=== PATIENT | male | born 1930 | race Caucasian/White ===

== ENCOUNTER 2016-09-26 13:17 | Outpatient (CLI) | payer MEDICARE, OTHER | END 2016-09-26 13:18 | disposition home or self-care (01) | DX: G47.33 Obstructive sleep apnea (adult) (pediatric) (principal) | CPT/HCPCS: 99214; G0463 ==

== ENCOUNTER 2017-08-04 08:15 | Outpatient (CLI) | payer MEDICARE, OTHER ==
[2017-08-04 09:04] LABS: ALBUMIN/GLOBULIN RATIO 1.2 (1.0-2.2); BILIRUBIN,TOTAL 0.8 mg/dL (0.2-1.0); BUN - BLOOD UREA NITROGEN 14 mg/dL (6-20); CALCIUM 9.4 mg/dL (8.5-10.3); CARBON DIOXIDE - CO2 29 mmol/L (21-32); CHLORIDE 101 mmol/L (101-111); CHOL/HDL RATIO 5.8 (<5.0); CHOLESTEROL 220 mg/dL; GFR - MDRD 71 (>89); GLUCOSE 96 mg/dL (70-100); HDL CHOLESTEROL 38 mg/dL; LDL/HDL RATIO 3.7 (<3.6); POTASSIUM 4.1 mmol/L (3.5-5.0); SODIUM 139 mmol/L (135-145); TOTAL PROTEIN 6.9 g/dL (6.7-8.2); TRIGLYCERIDES 200 mg/dL; VLDL CHOLESTEROL 40 mg/dL
== END 2017-08-04 08:16 | disposition home or self-care (01) ==
LOC: LAB 08:15
PROVIDERS: ATTEND Internal Medicine Cardiovascular Disease
DX: I25.118 Atherosclerotic heart disease of native coronary artery with other forms of angina pectoris (principal)
CPT/HCPCS: 36415; 80053; 80061

== ENCOUNTER 2017-10-18 11:38 | Outpatient (CLI) | payer MEDICARE, OTHER | END 2017-10-18 11:39 | disposition critical access hospital (66) | LOC: EMS 11:38 | PROVIDERS: ATTEND Surgery | DX: R07.9 Chest pain, unspecified (principal) | CPT/HCPCS: A0425; A0427 ==

== ENCOUNTER 2017-10-18 11:50 | Emergency (ER) | payer MEDICARE, OTHER ==
[2017-10-18 12:27] LABS: BASOPHILS % (AUTO) 0.4 %; EOSINOPHILS # (AUTO) 0.1 10^3/uL (0.0-0.7); EOSINOPHILS % (AUTO) 1.4 %; HGB - HEMOGLOBIN 12.6 g/dL (14.0-18.0); LYMPHOCYTES % (AUTO) 33.1 %; MEAN CORPUSCULAR HEMOGLOBIN 32.3 pg (27.0-31.0); MEAN CORPUSCULAR HGB CONC 34.9 g/dL (32.0-36.0); MEAN CORPUSCULAR VOLUME 92.5 fL (80.0-94.0); MEAN PLATELET VOLUME 8.2 fL (7.4-11.4); MONOCYTES # (AUTO) 0.7 10^3/uL (0.0-1.0); MONOCYTES % (AUTO) 11.2 %; NEUTROPHILS # (AUTO) 3.3 10^3/uL (1.5-6.6); NEUTROPHILS % (AUTO) 53.9 %; PLT - PLATELET COUNT 149 10^3/uL (130-450); RED BLOOD COUNT 3.89 10^6/uL (4.70-6.10); RED CELL DISTRIBUTION WIDTH 13.3 % (12.0-15.0); WHITE BLOOD COUNT 6.1 x10^3/uL (4.8-10.8)
[2017-10-18 12:36] LABS: ALBUMIN 3.5 g/dL (3.2-5.5); ALBUMIN/GLOBULIN RATIO 1.2 (1.0-2.2); BILIRUBIN,TOTAL 0.7 mg/dL (0.2-1.0); CALCIUM 8.8 mg/dL (8.5-10.3); TOTAL PROTEIN 6.5 g/dL (6.7-8.2)
--- NOTE | 2017-10-18 12:38 | XRAY Report ---
EXAM: CHEST RADIOGRAPHY EXAM DATE: 10/18/2017 12:23 PM. CLINICAL HISTORY: Chest pain. COMPARISON: 05/02/2015. TECHNIQUE: 1 view. FINDINGS: Lungs/Pleura: Faint reticular area of increased parenchymal density right upper lobe laterally just a mick the minor fissure. Left basilar infiltrate or atelectasis. Diskoid atelectasis right lung base N o pleural effusion. No pneumothorax. Mediastinum: Post sternotomy. Heart size normal. Ectatic aorta Other: None. IMPRESSION: 1. Possible early right upper lobe infiltrate. 2. Left basilar infiltrate or atelectasis. 3. Right basilar atelectasis [facility] Referring Provider Line: [phone] SITE ID: [id number]
--- NOTE | 2017-10-18 12:38 | XRAY Preliminary Report ---
Exam: XR CHEST 1 VIEW X-RAY IMPRESSION: 1. Possible early right upper lobe infiltrate. 2. Left basilar infiltrate or atelectasis. 3. Right basilar atelectasis [facility] SITE ID: [id number]
--- NOTE | 2017-10-18 12:51 | ED Physician Documentation ---
PD HPI CHEST PAIN - Stated complaint Stated Complaint: CP - Chief complaint Chief Complaint: Cardiac - History obtained from History obtained from: Patient - History of Present Illness Timing - onset: How many hours ago (7) Timing - onset during: Sleep Timing - duration: Hours (7) Timing - details: Other (awoke with chest pain today at 0500) Pain level max: 5 Pain level now: 0 Quality: Pressure, Tightness, Dull, Indigestion Location: Substernal Radiation: Other (felt 30 seconds of numbness to the L arm) Improved by: Nothing Worsened by: Eating (worse when eating breakfast this am) Associated symptoms: No: Shortness of air, Diaphoresis, Nausea, Vomiting, Feeling faint / dizzy, General Weakness, Palpitations Similar symptoms before: Diagnosis (has "angina") Recently seen: Not recently seen, Other ([facility]has appt in 1 week)) - Additional information Additional information: Patient had a CABG in 1992 and cardiac stents in 2009 and 2015. States has a bypass graft that "didn't take" and causes pain, but his cardiolgist has said it will not cause a MA. Review of Systems Ten Systems: 10 systems reviewed and negative Constitutional: denies: Fever, Chills Ears: denies: Ear pain Nose: denies: Rhinorrhea / runny nose, Congestion Throat: denies: Sore throat Cardiac: denies: Palpitations Respiratory: denies: Cough, Wheezing GI: denies: Abdominal Pain, Nausea, Vomiting, Diarrhea : denies: Dysuria Skin: denies: Rash Musculoskeletal: denies: Neck pain, Back pain Neurologic: denies: Headache PD PAST MEDICAL HISTORY - Past Medical History Past Medical History: Yes Cardiovascular: Hypertension, High cholesterol, Coronary artery disease, Atrial fibrillation, Arrhythmia Respiratory: Sleep apnea, CPAP use Neuro: None Endocrine/Autoimmune: None GI: GERD, Hiatal hernia, Diverticulitis : Kidney stones HEENT: None Psych: None Musculoskeletal: Osteoarthritis, Fatigue, Other Derm: Other - Past Surgical History Past Surgical History: Yes General: Colonoscopy, EGD Ortho: Other Cardiovascular: CABG, Coronary stent HEENT: Cataracts, Tonsil/Adenoidectomy - Present Medications Home Medications: Ambulatory Orders Medication Instructions Recorded Confirmed Aspirin Chewable [[facility] Esteb[place] 81 mg PO DAILY 12/27/12 06/17/15 Aspirin] Atenolol 12.5 mg PO DAILY 12/27/12 06/17/15 Betaxolol HCl 2 drops OP DAILY 12/27/12 06/17/15 Calcium Carbonate [Tums] 2 tab PO DAILY PRN 12/27/12 06/17/15 Cholecalciferol (Vitamin D3) 5,000 unit PO DAILY 12/27/12 06/17/15 [Vitamin D] Folic Acid 0.4 mg PO DAILY 12/27/12 06/17/15 Latanoprost 0.005% Ophth Drops 1 drops OPTH QPM 12/27/12 06/17/15 [Xalatan] Magnesium 500 mg PO DAILY 12/27/12 06/17/15 Nitroglycerin [Nitrostat] 0.4 mg SL ONCE 12/27/12 06/17/15 [place]-3 Fatty Acids/Fish Oil [Fish 2 each PO DAILY 12/27/12 06/17/15 Oil 1,000 mg Capsule] Docusate Sodium Oral Soln [Colace] 100 mg PO BID PRN 06/11/15 06/17/15 Cyanocobalamin (Vitamin B-12) 1,000 mcg IJ ONCE 06/16/15 06/17/15 [Cyanocobalamin Injection] - Allergies Allergies/Adverse Reactions: Allergies Allergy/AdvReac Type Severity Reaction Status Date / Time Sulfa (Sulfonamide Allergy Intermediate Hives Verified 05/12/15 14:34 Antibiotics) lansoprazole [From Prevacid] Allergy Mild Diarrhea Verified 05/12/15 14:34 Lkecufv-Pya-Qpo Reductase Allergy Mild Indigestion/Chest Verified 05/12/15 14:34 Inhibitor pain tetracycline [Tetracycline] Allergy Mild Unknown Verified 05/12/15 14:34 acetaminophen [From Tylenol] AdvReac Mild Irreg. Verified 05/12/15 14:34 heart rate diphenhydramine HCl * AdvReac Mild A-fib Verified 05/12/15 14:34 [From Benadryl] tree nuts Allergy Mild Unknown Uncoded 05/12/15 14:34 eggs AdvReac Mild Indigestion Uncoded 05/12/15 14:34 oats AdvReac Mild Indigestion Uncoded 05/12/15 14:34 - Social History Does the pt smoke?: No Smoking Status: Never smoker Does the pt drink ETOH?: Yes Does the pt have substance abuse?: No - Immunizations Immunizations are current?: Yes - POLST Patient has POLST: No PD ED PE NORMAL - Vitals Vital signs reviewed: Yes - General General: Alert and oriented X 3, No acute distress - HEENT HEENT: Moist mucous membranes - Neck Neck: Supple, no meningeal sign - Cardiac Cardiac: RRR, Strong equal pulses - Respiratory Respiratory: No respiratory distress, Clear bilaterally - Abdomen Abdomen: Soft, Non tender, Non distended - Derm Derm: Warm and dry, No rash - Extremities Extremities: No edema, No calf tenderness / cord - Neuro Neuro: Alert and oriented X 3 - Psych Psych: Normal mood, Normal affect Results - Vitals Vitals: Vital Signs - 24 hr 10/18/17 10/18/17 12:00 13:26 Temperature 36.6 C Heart Rate 56 L 60 Respiratory 17 16 Rate Blood Pressure 141/68 H 116/64 O2 Saturation 98 99 Oxygen O2 Source Room air - EKG (time done) 1155 Rate: Rate (enter#) (59) Rhythm: NSR [place]: Normal Intervals: Normal [place] QRS: Normal Ischemia: Normal ST segments Computer interpretation: Agree with computer - Labs Labs: Laboratory Tests 10/18/17 10/18/17 10/18/17 12:05 12:05 12:05 WBC 6.1 RBC 3.89 L Hgb 12.6 L Hct 36.0 L MCV 92.5 MCH 32.3 H MCHC 34.9 RDW 13.3 Plt Count 149 MPV 8.2 Neut # 3.3 Lymph # 2.0 [place] # 0.7 Eos # 0.1 Baso # 0.0 Absolute Nucleated RBC 0.00 Nucleated RBC % 0.0 Sodium 135 Potassium 3.8 Chloride 99 L Carbon Dioxide 26 Anion Gap 10.0 BUN 14 Creatinine 1.0 Estimated GFR (MDRD) 71 L Glucose 106 H Calcium 8.8 Total Bilirubin 0.7 AST 26 ALT 19 Alkaline Phosphatase 69 Troponin I < 0.04 Total Protein 6.5 L Albumin 3.5 Globulin 3.0 Albumin/Globulin Ratio 1.2 Lipase 30 10/18/17 13:52 WBC RBC Hgb Hct MCV MCH MCHC RDW Plt Count MPV Neut # Lymph # [place] # Eos # Baso # Absolute Nucleated RBC Nucleated RBC % Sodium Potassium Chloride Carbon Dioxide Anion Gap BUN Creatinine Estimated GFR (MDRD) Glucose Calcium Total Bilirubin AST ALT Alkaline Phosphatase Troponin I < 0.04 Total Protein Albumin Globulin Albumin/Globulin Ratio Lipase - Rads (name of study) cxr Radiology: Prelim report reviewed, EMP read contemporaneously, See rad report ( Possible early right upper lobe infiltrate. Left basilar infiltrate or atelectasis. right basilar atelectasis) PD MEDICAL DECISION MAKING - ED course Complexity details: reviewed results, re-evaluated patient, considered differential (No ST elevation MA, no aortic dissection, no PE, no tension pneumothorax, no aortic aneurysm), d/w patient, d/w qa consultant (1300 - Dr. Olvera and recommends rpt trop at 1400 and follow up with Terence if neg) ED course: Patient is an 86-year-old gentleman who presents to the emergency department with atypical chest pain. Symptoms resolved in the emergency department. Negative troponin 2 after greater than 8 hours of constant pain. No acute findings on EKG. No evidence of acute coronary syndrome. Discussed the case with cardiology and will follow-up as an outpatient. Patient counseled regarding signs and symptoms for which I believe and urgent re-evaluation would be necessary. Patient with good understanding of and agreement to plan and is comfortable going home at this time This document was made in part using voice recognition software. While efforts are made to proofread this document, sound alike and grammatical errors may occur. Departure - Departure Disposition: 01 Home, Self Care Clinical Impression: Chest pain Condition: Good Instructions: ED Chest Pain Atypical Unkn Cause Follow-Up: Nick Nova MD [Primary Care Provider] - Cornelio Pratt MD [Physician No Access] - Comments: Continue your medications at home. Return if you worsen. Follow up with Dr. Pratt as scheduled. Discharge Date/Time: 10/18/17 14:48
[2017-10-18 13:26] VITALS: BP 116/64
== END 2017-10-18 14:48 | disposition home or self-care (01) ==
LOC: EDUNIT# → SUPCPDRO 11:50 → ED 11:50
DX: R07.89 Other chest pain (principal); I25.10 Atherosclerotic heart disease of native coronary artery without angina pectoris; Z95.1 Presence of aortocoronary bypass graft; I48.91 Unspecified atrial fibrillation; I10 Essential (primary) hypertension; E78.00 Pure hypercholesterolemia, unspecified; G47.30 Sleep apnea, unspecified; K21.9 Gastro-esophageal reflux disease without esophagitis; M19.90 Unspecified osteoarthritis, unspecified site; Z79.82 Long term (current) use of aspirin
CPT/HCPCS: 36415; 71045; 80053; 83690; 84484; 85025; 93005; 99283; 99284

== ENCOUNTER 2017-10-30 13:58 | Outpatient (CLI) | payer MEDICARE, OTHER | END 2017-10-30 13:59 | disposition home or self-care (01) | LOC: SC 13:58 | PROVIDERS: ATTEND Nurse Practitioner Family | DX: G47.33 Obstructive sleep apnea (adult) (pediatric) (principal) | CPT/HCPCS: 99214; G0463; 99212 ==

== ENCOUNTER 2017-11-09 18:05 | Outpatient (CLI) | payer MEDICARE, OTHER | END 2017-11-09 18:06 | disposition critical access hospital (66) | LOC: EMS 18:05 | PROVIDERS: ATTEND Surgery | DX: R07.9 Chest pain, unspecified (principal) | CPT/HCPCS: A0425; A0427 ==

== ENCOUNTER 2017-11-09 18:17 | Inpatient (IN) | payer MEDICARE, OTHER ==
--- NOTE | 2017-11-09 18:28 | ED Physician Documentation ---
PD HPI CHEST PAIN - Stated complaint Stated Complaint: CP - Chief complaint Chief Complaint: Cardiac - History obtained from History obtained from: Patient, EMS - History of Present Illness Timing - onset: Other (86-year-old gentleman with history of coronary disease, had a remote 2 vessel bypass and has been stented 3 times since then. He has been having increasing angina over the last month or so and is actually scheduled for coronary angiography at [facility] in 5 days. He last had angina 3 days ago, it has usually been resolving with a single nitroglycerin. He developed rest angina today which was mild and pretty much gone at this point but atypically he took 3 nitroglycerin before it resolved. When I ask him if he is having pain now he says yes, I think so, but he obviously has to think about it.) Review of Systems Ten Systems: 10 systems reviewed and negative Constitutional: denies: Fever, Chills Cardiac: reports: Chest pain / pressure. denies: Palpitations, Pedal edema, Calf pain Respiratory: denies: Dyspnea GI: reports: Reviewed and negative PD PAST MEDICAL HISTORY - Past Medical History Cardiovascular: Hypertension, High cholesterol, Coronary artery disease, Atrial fibrillation, Arrhythmia Respiratory: Sleep apnea, CPAP use Neuro: None Endocrine/Autoimmune: None GI: GERD, Hiatal hernia, Diverticulitis : Kidney stones HEENT: None Psych: None Musculoskeletal: Osteoarthritis, Fatigue, Other Derm: Other - Past Surgical History Past Surgical History: Yes General: Colonoscopy, EGD Ortho: Other Cardiovascular: CABG, Coronary stent HEENT: Cataracts, Tonsil/Adenoidectomy - Present Medications Home Medications: Ambulatory Orders Medication Instructions Recorded Confirmed Aspirin Chewable [St Esteban 81 mg PO DAILY 12/27/12 06/17/15 Aspirin] Betaxolol HCl 2 drops OP DAILY 12/27/12 06/17/15 Calcium Carbonate [Tums] 2 tab PO DAILY PRN 12/27/12 06/17/15 Cholecalciferol (Vitamin D3) 5,000 unit PO DAILY 12/27/12 06/17/15 [Vitamin D] Latanoprost 0.005% Ophth Drops 1 drops OPTH QPM 12/27/12 06/17/15 [Xalatan] Magnesium 500 mg PO DAILY 12/27/12 06/17/15 Nitroglycerin [Nitrostat] 0.4 mg SL ONCE 12/27/12 06/17/15 [place]-3 Fatty Acids/Fish Oil [Fish 2 each PO DAILY 12/27/12 06/17/15 Oil 1,000 mg Capsule] Cyanocobalamin (Vitamin B-12) 1,000 mcg IJ ONCE 06/16/15 06/17/15 [Cyanocobalamin Injection] Metoprolol Succinate 50 mg PO DAILY 11/09/17 11/09/17 amLODIPine [Norvasc] 5 mg PO DAILY 11/09/17 11/09/17 amLODIPine [Norvasc] 5 mg PO DAILY #30 tablet 11/09/17 - Allergies Allergies/Adverse Reactions: Allergies Allergy/AdvReac Type Severity Reaction Status Date / Time Sulfa (Sulfonamide Allergy Intermediate Hives Verified 05/12/15 14:34 Antibiotics) lansoprazole [From Prevacid] Allergy Mild Diarrhea Verified 05/12/15 14:34 Smkjjvs-Bmu-Ipd Reductase Allergy Mild Indigestion/Chest Verified 05/12/15 14:34 Inhibitor pain tetracycline [Tetracycline] Allergy Mild Unknown Verified 05/12/15 14:34 acetaminophen [From Tylenol] AdvReac Mild Irreg. Verified 05/12/15 14:34 heart rate diphenhydramine HCl * AdvReac Mild A-fib Verified 05/12/15 14:34 [From Benadryl] tree nuts Allergy Mild Unknown Uncoded 05/12/15 14:34 eggs AdvReac Mild Indigestion Uncoded 05/12/15 14:34 oats AdvReac Mild Indigestion Uncoded 05/12/15 14:34 - Social History Does the pt smoke?: No Smoking Status: Never smoker Does the pt drink ETOH?: Yes Does the pt have substance abuse?: No - Family History Family history: reports: Non contributory - Immunizations Immunizations are current?: Yes - POLST Patient has POLST: No PD ED PE NORMAL - Vitals Vital signs reviewed: Yes - General General: Alert and oriented X 3, No acute distress - HEENT HEENT: PERRL, EOMI - Neck Neck: Supple, no meningeal sign, No bony TTP - Cardiac Cardiac: RRR, No murmur - Respiratory Respiratory: No respiratory distress, Clear bilaterally - Abdomen Abdomen: Non tender - Extremities Extremities: No deformity, No tenderness to palpate, No edema, No calf tenderness / cord - Neuro Neuro: Alert and oriented X 3, Normal speech Results - Vitals Vitals: Vital Signs - 24 hr 11/09/17 11/09/17 11/09/17 18:20 19:00 19:36 Temperature 36.5 C Heart Rate 64 59 L 57 L Respiratory 18 15 15 Rate Blood Pressure 161/75 H 155/69 H 135/81 H O2 Saturation 98 97 96 Oxygen O2 Source Room air - EKG (time done) 1821 Rate: Rate (enter#) (61) Rhythm: NSR [place]: Normal Intervals: Normal [place] QRS: Normal Ischemia: Normal ST segments Computer interpretation: Agree with computer 1943 Rate: Rate (enter#) (60) Rhythm: NSR [place]: Normal Intervals: Normal [place] QRS: Normal Ischemia: Normal ST segments Compare to prior EKG: Unchanged from prior EKG (from #1 daniel) Computer interpretation: Agree with computer - Labs Labs: Laboratory Tests 11/09/17 11/09/17 11/09/17 18:34 18:34 18:34 WBC 6.7 RBC 4.16 L Hgb 13.2 L Hct 38.9 L MCV 93.5 MCH 31.6 H MCHC 33.8 RDW 12.9 Plt Count 169 MPV 7.7 Neut # 3.4 Lymph # 2.3 [place] # 0.8 Eos # 0.1 Baso # 0.0 Absolute Nucleated RBC 0.00 Nucleated RBC % 0.0 Sodium 134 L Potassium 3.9 Chloride 99 L Carbon Dioxide 28 Anion Gap 7.0 BUN 15 Creatinine 1.0 Estimated GFR (MDRD) 71 L Glucose 120 H Calcium 9.0 Total Bilirubin 0.6 AST 23 ALT 17 Alkaline Phosphatase 81 Troponin I < 0.04 Total Protein 6.7 Albumin 3.7 Globulin 3.0 Albumin/Globulin Ratio 1.2 Lipase 31 PD MEDICAL DECISION MAKING - ED course ED course: 86-year-old gentleman with known coronary disease and ongoing intermittent angina. I spoke with his bounty hunter after objective findings without evidence of ACS here. She recommended adding amlodipine 5 mg once a day and following up next week as scheduled for coronary angiography. Prior to discharge his pain increased again, subsequent EKG showed no changes but I called the bounty hunter, Dr. Spann again and she thought that given his worsening pain he should be transferred for a likely more urgent but not emergent coronary angiography, we agreed on starting heparin and nitro drips prior to transport. Cobras were completed. Unfortunately [facility] was full and they recommended boarding him here pending bed availability. Given the lack of objective markers of ongoing ischemia this is not unreasonable. Departure - Departure Disposition: [facility] DC/Xfer Clinical Impression: Angina at rest Condition: Stable Record reviewed to determine appropriate education?: Yes Instructions: Angina Dc Prescriptions: amLODIPine [Norvasc] 5 mg PO DAILY #30 tablet Comments: The physician precision honing machine operator for Dr. Pratt recommended the addition of this new blood pressure medication. Return if worse, otherwise follow-up as scheduled on Monday for angiography.
[2017-11-09 18:39] LABS: BASOPHILS % (AUTO) 0.7 %; EOSINOPHILS # (AUTO) 0.1 10^3/uL (0.0-0.7); EOSINOPHILS % (AUTO) 2.2 %; HGB - HEMOGLOBIN 13.2 g/dL (14.0-18.0); LYMPHOCYTES # (AUTO) 2.3 10^3/uL (1.5-3.5); LYMPHOCYTES % (AUTO) 34.6 %; MEAN CORPUSCULAR HEMOGLOBIN 31.6 pg (27.0-31.0); MEAN CORPUSCULAR HGB CONC 33.8 g/dL (32.0-36.0); MEAN CORPUSCULAR VOLUME 93.5 fL (80.0-94.0); MEAN PLATELET VOLUME 7.7 fL (7.4-11.4); MONOCYTES # (AUTO) 0.8 10^3/uL (0.0-1.0); MONOCYTES % (AUTO) 11.8 %; NEUTROPHILS # (AUTO) 3.4 10^3/uL (1.5-6.6); NEUTROPHILS % (AUTO) 50.7 %; PLT - PLATELET COUNT 169 10^3/uL (130-450); RED BLOOD COUNT 4.16 10^6/uL (4.70-6.10); RED CELL DISTRIBUTION WIDTH 12.9 % (12.0-15.0); WHITE BLOOD COUNT 6.7 x10^3/uL (4.8-10.8)
[2017-11-09 18:53] LABS: ALBUMIN 3.7 g/dL (3.2-5.5); ALBUMIN/GLOBULIN RATIO 1.2 (1.0-2.2); BILIRUBIN,TOTAL 0.6 mg/dL (0.2-1.0); TOTAL PROTEIN 6.7 g/dL (6.7-8.2)
[2017-11-09] MEDS ORDERED: amLODIPine 5 MG TABLET PO STA (19:19)
[2017-11-09] MEDS ORDERED: HEPARIN 25000UNITS/500ML (D5W) 25,000 UNIT/500 ML BAG IV STA (20:04)
[2017-11-09] MEDS ORDERED: NITROGLYCERIN 50 MG/250 ML 50 MG/250 ML BOTTLE IV STA (20:04)
[2017-11-09] MEDS ORDERED: HEPARIN 5,000 UNIT/ML VIAL IVP ONE (20:04)
[2017-11-09] MEDS ORDERED: TEMAZEPAM 15 MG CAPSULE PO PRN (21:22)
[2017-11-09] MEDS ORDERED: ACETAMINOPHEN 325 MG TABLET PO PRN (21:22)
[2017-11-09] MEDS ORDERED: SODIUM CHLORIDE FLUSH 0.9% 10 ML SYRINGE IVP PRN (21:22)
[2017-11-09] MEDS ORDERED: ONDANSETRON 4 MG/2 ML VIAL IVP PRN (21:22)
[2017-11-09] MEDS ORDERED: HYDROmorphone 1 MG/ML SYRINGE IVP PRN (21:34)
[2017-11-09] MEDS ORDERED: HEPARIN 25000UNITS/500ML (D5W) 25,000 UNIT/500 ML BAG IV SCH (22:00)
[2017-11-09] MEDS ORDERED: NITROGLYCERIN 50 MG/250 ML 50 MG/250 ML BOTTLE IV SCH (22:00)
[2017-11-09] MEDS: FAMOTIDINE 20 MG/50 ML 50 ML IV SCH (22:40)
[2017-11-09 23:43] LABS: BILIRUBIN,URINE NEGATIVE (NEGATIVE); GLUCOSE, URINE (UA) NEGATIVE (NEGATIVE); KETONES,URINE (UA) NEGATIVE (NEGATIVE); LEUKOCYTE ESTERASE, URINE NEGATIVE (NEGATIVE); NITRITE,URINE NEGATIVE (NEGATIVE); OCCULT BLOOD,URINE NEGATIVE (NEGATIVE); PROTEIN,URINE NEGATIVE (NEGATIVE); UROBILINOGEN,URINE 0.2 (NORMAL) E.U./dL (NORMAL)
[2017-11-09 23:44] LABS: CLARITY,URINE CLEAR (CLEAR)
[2017-11-10] MEDS: SODIUM CHLORIDE FLUSH 0.9% 10 ML SYRINGE IVP SCH ×2 (01:49→15:24)
--- NOTE | 2017-11-10 03:23 | HISTORY & PHYSICAL EXAMINATION ---
DATE OF SERVICE: 11/09/2017 Physician: Wanda Shultz MD HISTORY OF PRESENT ILLNESS: This is an 86-year-old, white male with a history of hypertension, hyperlipidemia, coronary artery disease with bypass surgery of 2 vessels in 1995 and subsequent stenting of coronary vessels done in 2005, 2009 and 2015. The patient has had angina over the past 1 month and was already scheduled for an elective angiogram to be done in 5 days. Today, he developed resting angina, and usually any angina for him resolves with 1 sublingual nitroglycerin; however, he required 3 sublingual nitroglycerin for relief. He presented to the emergency room with CP, became pain-free, but then developed chest pain again while in the emergency room. He had 2 EKGs done, one on admission and one with recurrence of the pain. Both showed no ischemic changes. The ER doctor was able to contact the patient's battery hand who initially recommended adding Norvasc and sending the patient home, but after chest pain occurred in the ER, that battery hand was contacted again and advised that the patient be transferred for coronary angiogram, and to be started on IV nitroglycerin and IV heparin. Cobra forms were signed. However, there were no beds available at [facility], and therefore the patient is being hospitalized for stabilization of his resting angina. The patient is currently pain-free. He has been started on heparin bolus and drip, and IV nitroglycerin at 5 mcg. He denies any dyspnea with these symptoms. He has been compliant with his medications. ALLERGIES 1. SULFA ANTIBIOTICS. 2. LANSOPRAZOLE 3. ALL STATIN MEDICATIONS. 4. TETRACYCLINE. 5. TYLENOL. 6. BENADRYL. 7. TREE NUTS. 8. EGGS. 9. OATS. SOCIAL HISTORY: The patient is a nonsmoker, quit in 1963. He drinks alcohol or uses any illicit drugs. REVIEW OF SYSTEMS: A comprehensive review of systems was performed and the pertinent positives are in the HPI. PAST MEDICAL HISTORY: Hypertension, hyperlipidemia, coronary artery disease with bypasses and stents, obstructive sleep apnea on CPAP. Also, history of atrial fibrillation in the past, GERD, hiatal hernia, diverticulitis and kidney stones. PHYSICAL EXAMINATION GENERAL: Elderly, white male, in no distress. VITAL SIGNS: Blood pressure 171/85, pulse of 63 in sinus rhythm, afebrile, room air saturation 98%. HEENT: Unremarkable. NECK: Shows no JVD in a vertical position. No carotid bruits. LUNGS: Clear. HEART: Sounds normal. ABDOMEN: Soft, positive bowel sounds, nontender. EXTREMITIES: No clubbing, cyanosis or edema. NEUROLOGIC: Intact. LABORATORIES: Sodium 134, potassium 3.9, BUN and creatinine normal. Liver tests normal, bilirubin normal. First troponin less than 0.04. Lipase normal. White blood count and platelet count normal, hemoglobin 13.2. No INR was done. Urine is negative. There is no chest x-ray done. The EKG shows sinus rhythm at a rate of 61 and is within normal limits, and EKG number #2 is similar. IMPRESSION/DIAGNOSES 1. Unstable angina. 2. History of coronary artery disease with bypasses and stents. 3. Hypertension, poorly controlled. 4. Statin intolerance. PLAN: Admit the patient to the ICU and continue with the IV heparin drip as per protocol following the PTT. Continue with the IV nitroglycerin, which can be titrated to treat his angina. Continue with his beta brandon, aspirin and fish oil tablets and his other noncardiac medications. Follow his troponins. Check his lipid panel and a CXR. If chest pain should recur again, obtain a stat EKG to look for ischemic changes. The plan is for transfer for elective coronary angiography as soon as a bed opens at [facility]. CODE STATUS: FULL CODE. DEEP VENOUS THROMBOSIS PROPHYLAXIS: Therapeutic heparin dosing. ATTESTATION: The patient is expected to be discharged or transferred to another facility within 96 hours: Yes. TD: 11/10/2017 03:21 MTDEstephania
[2017-11-10 05:03] LABS: BASOPHILS % (AUTO) 0.6 %; EOSINOPHILS # (AUTO) 0.2 10^3/uL (0.0-0.7); EOSINOPHILS % (AUTO) 2.7 %; HGB - HEMOGLOBIN 13.1 g/dL (14.0-18.0); LYMPHOCYTES # (AUTO) 2.4 10^3/uL (1.5-3.5); LYMPHOCYTES % (AUTO) 38.7 %; MEAN CORPUSCULAR HEMOGLOBIN 31.8 pg (27.0-31.0); MEAN CORPUSCULAR HGB CONC 33.8 g/dL (32.0-36.0); MEAN CORPUSCULAR VOLUME 94.1 fL (80.0-94.0); MEAN PLATELET VOLUME 8.2 fL (7.4-11.4); MONOCYTES # (AUTO) 0.8 10^3/uL (0.0-1.0); MONOCYTES % (AUTO) 12.1 %; NEUTROPHILS # (AUTO) 2.9 10^3/uL (1.5-6.6); NEUTROPHILS % (AUTO) 45.9 %; PLT - PLATELET COUNT 155 10^3/uL (130-450); RED BLOOD COUNT 4.12 10^6/uL (4.70-6.10); RED CELL DISTRIBUTION WIDTH 13.3 % (12.0-15.0); WHITE BLOOD COUNT 6.3 x10^3/uL (4.8-10.8)
[2017-11-10 05:09] LABS: CALCIUM 8.7 mg/dL (8.5-10.3); CREATININE 0.8 mg/dL (0.6-1.2)
[2017-11-10 05:12] LABS: CHOL/HDL RATIO 5.8 (<5.0); CHOLESTEROL 207 mg/dL; HDL CHOLESTEROL 36 mg/dL; LDL CHOLESTEROL,CALCULATED 153 mg/dL; LDL/HDL RATIO 4.3 (<3.6); VLDL CHOLESTEROL 18 mg/dL
[2017-11-10] MEDS ORDERED: POTASSIUM CHLORIDE 20 MEQ TABLET PO ONE ×2 (07:00→08:00)
[2017-11-10] MEDS ORDERED: MAGNESIUM OXIDE 400 MG TABLET PO SCH (08:00)
[2017-11-10] MEDS: FAMOTIDINE 20 MG/50 ML 50 ML IV SCH (08:31)
[2017-11-10] MEDS ORDERED: MAGNESIUM 500 MG PO SCH (09:00)
[2017-11-10] MEDS ORDERED: OMEGA-3 ACID ETHYL ESTERS 1 GM CAPSULE PO SCH (09:00)
[2017-11-10] MEDS ORDERED: amLODIPine 5 MG TABLET PO SCH (09:00)
[2017-11-10] MEDS ORDERED: BETAXOLOL HCL EACHEYE SCH (09:00)
[2017-11-10] MEDS ORDERED: ASPIRIN CHEW 81 MG TABLET PO SCH (09:00)
[2017-11-10] MEDS ORDERED: METOPROLOL SUCCINATE 50 MG TABLET PO SCH (09:00)
[2017-11-10] MEDS ORDERED: OMEGA PO SCH (09:00)
[2017-11-10] MEDS ORDERED: FATTY ACIDS PO SCH (09:00)
[2017-11-10] MEDS ORDERED: FISH OIL PO SCH (09:00)
[2017-11-10] MEDS ORDERED: CHOLECALCIFEROL 1,000 UNIT TABLET PO SCH ×2 (09:00→11:58)
--- NOTE | 2017-11-10 09:24 | XRAY Report ---
FRONTAL CHEST: 11/10/2017 COMPARISON: Frontal chest 10/18/2017. INDICATION: Chest pain. TECHNIQUE: One view. FINDINGS: Interval clearance of right mid lung patchy opacity. Bilateral lower lobe patchy opacity is more conspicuous on today's examination, concerning for pneumonia. No pneumothorax or pleural effusion. Mediastinum otherwise unremarkable. Sternotomy is noted. IMPRESSION: INTERVAL CLEARANCE OF RIGHT MID LUNG OPACITY. MORE CONSPICUOUS BILATERAL LOWER LOBE OPACITIES ARE CONCERNING FOR PNEUMONIA. CORRELATE CLINICALLY. TD: 11/10/2017 09:23 MTDD
--- NOTE | 2017-11-10 16:23 | DISCHARGE SUMMARY ---
Discharge Summary Admit Date: 11/09/17 Discharge Date: 11/10/17 Discharging Provider: Jillian Herring Primary Care Provider: Nick Nova Code Status: Attempt Resuscitation Condition at Discharge: Stable Discharge Disposition: 02 Transfer Acute Care Hosp Discharge Facility Name: [facility] - DIAGNOSES Admission Diagnoses: 1. Unstable angina 2. History of coronary artery disease with bypasses and stents 3. Hypertension, poorly controlled 4. Statin intolerance Discharge Diagnoses with Status of Each Condition: 1. Unstable angina-The patient's chest pain has been relieved while on the nitro drip at 5 mcg an hour. He denies any shortness of breath or any other symptomatology at this time. 2. History of coronary artery disease with bypasses and stents- The patient will be transferred to [facility] where he will undergo a coronary artery angiogram. 3. Hypertension, poorly controlled- Well-controlled on nitroglycerin drip, however will obviously need to be adjusted once the patient is off of the drip. 4. 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 He is not a candidate for statins. - HPI History of Present Illness: Please see the history and physical from Dr. Guerra. - HOSPITAL COURSE Hospital Course: The patient was admitted to the intensive care unit and placed on nitroglycerin drip. His symptoms resolved and he has been pain-free since this morning. He will now be transferred to [facility] for a coronary artery angiogram. - ALLERGIES Allergies/Adverse Reactions: Allergies Allergy/AdvReac Type Severity Reaction Status Date / Time Sulfa (Sulfonamide Allergy Intermediate Hives Verified 05/12/15 14:34 Antibiotics) lansoprazole [From Prevacid] Allergy Mild Diarrhea Verified 05/12/15 14:34 Sqijvpk-Nvn-Ibs Reductase Allergy Mild Indigestion/Chest Verified 05/12/15 14:34 Inhibitor pain tetracycline [Tetracycline] Allergy Mild Unknown Verified 05/12/15 14:34 acetaminophen [From Tylenol] AdvReac Mild Irreg. Verified 05/12/15 14:34 heart rate diphenhydramine HCl * AdvReac Mild A-fib Verified 05/12/15 14:34 [From Benadryl] gluten AdvReac Cramps Verified 11/10/17 10:37 tree nuts Allergy Mild Unknown Uncoded 05/12/15 14:34 eggs AdvReac Mild Indigestion Uncoded 05/12/15 14:34 oats AdvReac Mild Indigestion Uncoded 05/12/15 14:34 - MEDICATIONS Home Medications: Ambulatory Orders Medication Instructions Recorded Confirmed Latanoprost 0.005% Ophth Drops 1 drops RIGHTEYE QPM 12/27/12 11/10/17 [Xalatan] Magnesium 500 mg PO DAILY 12/27/12 11/10/17 Nitroglycerin [Nitrostat] 0.4 mg SL Q5M PRN 12/27/12 11/10/17 [place]-3 Fatty Acids/Fish Oil [Fish 500 mg PO BID 12/27/12 11/10/17 Oil 1,000 mg Capsule] Cyanocobalamin (Vitamin B-12) 1,000 mcg PO DAILY 06/16/15 11/10/17 [Cyanocobalamin Injection] Metoprolol Succinate 50 mg PO DAILY 11/09/17 11/10/17 Aspirin [Aspirin EC] 81 mg PO DAILY 11/10/17 11/10/17 Betaxolol HCl [Betaxolol HCl 0.5%] 1 drops EACHEYE BID 11/10/17 11/10/17 Calcium Carbonate [Tums (Calcium 500 mg PO PRN PRN 11/10/17 11/10/17 Carbonate 500mg)] Cholecalciferol (Vitamin D3) 2,000 units PO DAILY 11/10/17 11/10/17 [Vitamin D3] Famotidine 10 mg PO BID 11/10/17 11/10/17 Isosorbide Mononitrate [Isosorbide 60 mg PO DAILY 11/10/17 11/10/17 Mononitrate ER] Rosuvastatin Calcium [Rosuvastatin 5 mg PO DAILY 11/10/17 11/10/17 Calcium] Vit A/Vit C/Vit E/Zinc/Copper 2 cap PO QDDINNER 11/10/17 11/10/17 [Preservision Areds Softgel] amLODIPine [Norvasc] 5 mg PO DAILY 11/10/17 11/10/17 - PHYSICAL EXAM AT DISCHARGE General Appearance: positive: No acute distress, Alert Eyes Bilateral: positive: Normal inspection, PERRL, EOMI, No lid inflammation, Conjunctivae nml, No scleral icterus ENT: positive: ENT inspection nml, Pharynx nml, No signs of dehydration Neck: positive: Nml inspection, Thyroid nml, No JVD, Trachea midline. negative : Thyromegaly Respiratory: positive: Chest non-tender, No respiratory distress, Breath sounds nml. negative: Wheezes, Rales, Rhonchi Cardiovascular: positive: Regular rate & rhythm, No murmur, No gallop Peripheral Pulses: positive: 1+ Abdomen: positive: Non-tender, No organomegaly, Nml bowel sounds, No distention. negative: Guarding, Rebound Back: positive: Nml inspection. negative: CVA tenderness (R), CVA tenderness (L ) Skin: positive: Color nml, No rash, Warm, Dry. negative: Cyanosis Extremities: positive: Non-tender, Full ROM, Nml appearance, No pedal edema Neurologic/Psychiatric: positive: Oriented x3, CN's nml (2-12), Motor nml, Sensation nml, Mood/affect nml - LABS Result Diagrams: 11/10/17 04:25 11/10/17 04:25 - FOLLOW UP Follow Up: With your primary care physician and nurse assistant after you get home from [facility]. - TIME SPENT Time Spent in Discharge (Minutes): 45
[2017-11-10 17:40] VITALS: BP 146/68
[2017-11-10] MEDS ORDERED: LATANOPROST 0.005% OPHTH DROPS EACHEYE SCH (21:00)
== END 2017-11-10 18:00 | disposition short-term general hospital (02) | DRG 303 ==
LOC: EDUNIT# → ED 18:17 → ICU 21:22
PROVIDERS: ADMIT Internal Medicine; ATTEND Hospitalist
DX: I25.118 Atherosclerotic heart disease of native coronary artery with other forms of angina pectoris (principal); I25.110 Atherosclerotic heart disease of native coronary artery with unstable angina pectoris; I10 Essential (primary) hypertension; E78.00 Pure hypercholesterolemia, unspecified; G47.30 Sleep apnea, unspecified; I48.91 Unspecified atrial fibrillation; K21.9 Gastro-esophageal reflux disease without esophagitis; K44.9 Diaphragmatic hernia without obstruction or gangrene; R53.83 Other fatigue; M19.90 Unspecified osteoarthritis, unspecified site; Z95.1 Presence of aortocoronary bypass graft; Z95.5 Presence of coronary angioplasty implant and graft; Z87.442 Personal history of urinary calculi; Z79.82 Long term (current) use of aspirin; Z79.899 Other long term (current) drug therapy; Z87.891 Personal history of nicotine dependence; G47.33 Obstructive sleep apnea (adult) (pediatric); Z99.81 Dependence on supplemental oxygen
CPT/HCPCS: 36415; 71045; 80048; 80053; 80061; 81001; 81003; 83690; 83721; 83735; 84484; 85025; 85520; 87086; 87150; 93005; 96365; 96375; 99283; 99284; 99285

== ENCOUNTER 2017-11-10 18:04 | Outpatient (CLI) | payer MEDICARE, OTHER | END 2017-11-10 18:05 | disposition short-term general hospital (02) | LOC: EMS 18:04 | PROVIDERS: ATTEND Surgery | DX: I20.0 Unstable angina (principal) | CPT/HCPCS: A0425; A0426 ==

== ENCOUNTER 2017-12-08 21:02 | Emergency (ER) | payer MEDICARE, OTHER ==
[2017-12-08 21:37] LABS: BASOPHILS % (AUTO) 0.8 %; EOSINOPHILS # (AUTO) 0.2 10^3/uL (0.0-0.7); EOSINOPHILS % (AUTO) 3.8 %; LYMPHOCYTES # (AUTO) 2.3 10^3/uL (1.5-3.5); LYMPHOCYTES % (AUTO) 37.5 %; MEAN CORPUSCULAR HEMOGLOBIN 31.7 pg (27.0-31.0); MEAN CORPUSCULAR HGB CONC 33.8 g/dL (32.0-36.0); MEAN CORPUSCULAR VOLUME 93.8 fL (80.0-94.0); MEAN PLATELET VOLUME 7.9 fL (7.4-11.4); MONOCYTES # (AUTO) 0.8 10^3/uL (0.0-1.0); MONOCYTES % (AUTO) 13.7 %; NEUTROPHILS # (AUTO) 2.7 10^3/uL (1.5-6.6); NEUTROPHILS % (AUTO) 44.2 %; PLT - PLATELET COUNT 172 10^3/uL (130-450); RED BLOOD COUNT 3.77 10^6/uL (4.70-6.10); RED CELL DISTRIBUTION WIDTH 13.5 % (12.0-15.0)
[2017-12-08 21:47] LABS: ALBUMIN 3.8 g/dL (3.2-5.5); ALBUMIN/GLOBULIN RATIO 1.3 (1.0-2.2); BILIRUBIN,TOTAL 0.4 mg/dL (0.2-1.0); TOTAL PROTEIN 6.8 g/dL (6.7-8.2)
[2017-12-08 22:31] VITALS: BP 154/76
[2017-12-08 22:37] LABS: BILIRUBIN,URINE NEGATIVE (NEGATIVE); GLUCOSE, URINE (UA) NEGATIVE (NEGATIVE); KETONES,URINE (UA) NEGATIVE (NEGATIVE); LEUKOCYTE ESTERASE, URINE NEGATIVE (NEGATIVE); NITRITE,URINE NEGATIVE (NEGATIVE); OCCULT BLOOD,URINE NEGATIVE (NEGATIVE); PH,URINE 7.5 PH (5.0-7.5); PROTEIN,URINE NEGATIVE (NEGATIVE); UROBILINOGEN,URINE 0.2 (NORMAL) E.U./dL (NORMAL)
[2017-12-08 22:38] LABS: CLARITY,URINE CLEAR (CLEAR)
--- NOTE | 2017-12-08 22:50 | ED Physician Documentation ---
History of Present Illness - Stated complaint Stated Complaint: TINGLING BODY - Chief complaint Chief Complaint: General - History obtained from History obtained from: Patient, Family - History of Present Illness Timing: Today - Additonal information Additional information: Patient is a 87 year old male presenting to the emergency department for a hot flash and tingling. Patient states that he was watching baseball and doing a puzzle when he had a sensation of tingling and then a hot flash go over his body. Patient states that the symptoms only lasted a second and resolved on its own. Patient denies any chest pain, shortness of breath, change in vision, change in speech or and focal neurological deficit. Upon initial evaluation in the emergency department patient was well appearing and in no acute distress. Review of Systems Constitutional: denies: Fever, Chills Eyes: denies: Loss of vision Ears: reports: Reviewed and negative Nose: reports: Reviewed and negative Throat: reports: Reviewed and negative Cardiac: denies: Chest pain / pressure, Palpitations GI: denies: Abdominal Pain, Nausea, Vomiting : denies: Dysuria, Frequency, Hesitancy Skin: denies: Rash, Lesions Musculoskeletal: denies: Extremity pain Neurologic: denies: Generalized weakness, Focal weakness, Numbness, Syncope, Headache, Head injury, LOC Immunocompromised: denies: Immunocompromised PD PAST MEDICAL HISTORY - Past Medical History Cardiovascular: Hypertension, High cholesterol, Coronary artery disease, Atrial fibrillation, Arrhythmia Respiratory: Sleep apnea, CPAP use Neuro: None Endocrine/Autoimmune: None GI: GERD, Hiatal hernia, Diverticulitis : Kidney stones HEENT: None Psych: None Musculoskeletal: Osteoarthritis, Fatigue, Other Derm: Other - Past Surgical History Past Surgical History: Yes General: Colonoscopy, EGD Ortho: Other Cardiovascular: CABG, Coronary stent HEENT: Cataracts, Tonsil/Adenoidectomy - Present Medications Home Medications: Ambulatory Orders Medication Instructions Recorded Confirmed Latanoprost 0.005% Ophth Drops 1 drops RIGHTEYE QPM 12/27/12 11/10/17 [Xalatan] Magnesium 500 mg PO DAILY 12/27/12 11/10/17 Nitroglycerin [Nitrostat] 0.4 mg SL Q5M PRN 12/27/12 11/10/17 [place]-3 Fatty Acids/Fish Oil [Fish 500 mg PO BID 12/27/12 11/10/17 Oil 1,000 mg Capsule] Cyanocobalamin (Vitamin B-12) 1,000 mcg PO DAILY 06/16/15 11/10/17 [Cyanocobalamin Injection] Metoprolol Succinate 50 mg PO DAILY 11/09/17 11/10/17 Aspirin [Aspirin EC] 81 mg PO DAILY 11/10/17 11/10/17 Betaxolol HCl [Betaxolol HCl 0.5%] 1 drops EACHEYE BID 11/10/17 11/10/17 Calcium Carbonate [Tums (Calcium 500 mg PO PRN PRN 11/10/17 11/10/17 Carbonate 500mg)] Cholecalciferol (Vitamin D3) 2,000 units PO DAILY 11/10/17 11/10/17 [Vitamin D3] Famotidine 10 mg PO BID 11/10/17 11/10/17 Isosorbide Mononitrate [Isosorbide 60 mg PO DAILY 11/10/17 11/10/17 Mononitrate ER] Rosuvastatin Calcium [Rosuvastatin 5 mg PO DAILY 11/10/17 11/10/17 Calcium] Vit A/Vit C/Vit E/Zinc/Copper 2 cap PO QDDINNER 11/10/17 11/10/17 [Preservision Areds Softgel] amLODIPine [Norvasc] 5 mg PO DAILY 11/10/17 11/10/17 - Allergies Allergies/Adverse Reactions: Allergies Allergy/AdvReac Type Severity Reaction Status Date / Time Sulfa (Sulfonamide Allergy Intermediate Hives Verified 12/08/17 21:18 Antibiotics) lansoprazole [From Prevacid] Allergy Mild Diarrhea Verified 12/08/17 21:18 Jyaqddi-Mjl-Khe Reductase Allergy Mild Indigestion/Chest Verified 12/08/17 21:18 Inhibitor pain tetracycline [Tetracycline] Allergy Mild Unknown Verified 12/08/17 21:18 acetaminophen [From Tylenol] AdvReac Mild Irreg. Verified 12/08/17 21:18 heart rate diphenhydramine HCl * AdvReac Mild A-fib Verified 12/08/17 21:18 [From Benadryl] gluten AdvReac Cramps Verified 12/08/17 21:18 tree nuts Allergy Mild Unknown Uncoded 12/08/17 21:18 eggs AdvReac Mild Indigestion Uncoded 12/08/17 21:18 oats AdvReac Mild Indigestion Uncoded 12/08/17 21:18 - Social History Does the pt smoke?: No Smoking Status: Never smoker Does the pt drink ETOH?: Yes Does the pt have substance abuse?: No - Immunizations Immunizations are current?: Yes - POLST Patient has POLST: No PD ED PE NORMAL - Vitals Vital signs reviewed: Yes - General General: Alert and oriented X 3, No acute distress - HEENT HEENT: Atraumatic - Cardiac Cardiac: RRR - Respiratory Respiratory: No respiratory distress - Abdomen Abdomen: Soft, Non tender, Non distended - Derm Derm: Normal color, Warm and dry - Extremities Extremities: No deformity - Neuro Neuro: Alert and oriented X 3, 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, No motor deficit, No sensory deficit, Normal speech Eye Opening: Spontaneous Motor: Obeys Commands Verbal: Oriented GCS Score: 15 Results - Vitals Vitals: Vital Signs - 24 hr 12/08/17 12/08/17 12/08/17 21:05 21:48 22:30 Temperature 36.4 C L Heart Rate 80 67 63 Respiratory 16 13 12 Rate Blood Pressure 181/96 H 135/78 H 154/76 H O2 Saturation 99 97 99 Oxygen O2 Source Room air - Labs Labs: Laboratory Tests 12/08/17 12/08/17 12/08/17 21:28 21:28 21:28 WBC 6.0 RBC 3.77 L Hgb 12.0 L Hct 35.4 L MCV 93.8 MCH 31.7 H MCHC 33.8 RDW 13.5 Plt Count 172 MPV 7.9 Neut # 2.7 Lymph # 2.3 [place] # 0.8 Eos # 0.2 Baso # 0.0 Absolute Nucleated RBC 0.00 Nucleated RBC % 0.1 Sodium 133 L Potassium 4.2 Chloride 99 L Carbon Dioxide 28 Anion Gap 6.0 BUN 15 Creatinine 1.0 Estimated GFR (MDRD) 71 L Glucose 133 H Calcium 9.0 Total Bilirubin 0.4 AST 24 ALT 18 Alkaline Phosphatase 77 Troponin I < 0.04 Total Protein 6.8 Albumin 3.8 Globulin 3.0 Albumin/Globulin Ratio 1.3 Lipase 53 H Urine Color Urine Clarity Urine pH Ur Specific [place] Urine Protein Urine Glucose (UA) Urine Ketones Urine Occult Blood Urine Nitrite Urine Bilirubin Urine Urobilinogen Ur Leukocyte Esterase Ur Microscopic Review Urine Culture Comments 04/13/18 22:20 WBC RBC Hgb Hct MCV MCH MCHC RDW Plt Count MPV Neut # Lymph # [place] # Eos # Baso # Absolute Nucleated RBC Nucleated RBC % Sodium Potassium Chloride Carbon Dioxide Anion Gap BUN Creatinine Estimated GFR (MDRD) Glucose Calcium Total Bilirubin AST ALT Alkaline Phosphatase Troponin I Total Protein Albumin Globulin Albumin/Globulin Ratio Lipase Urine Color YELLOW Urine Clarity CLEAR Urine pH 7.5 Ur Specific [place] 1.015 Urine Protein NEGATIVE Urine Glucose (UA) NEGATIVE Urine Ketones NEGATIVE Urine Occult Blood NEGATIVE Urine Nitrite NEGATIVE Urine Bilirubin NEGATIVE Urine Urobilinogen 0.2 (NORMAL) Ur Leukocyte Esterase NEGATIVE Ur Microscopic Review NOT INDICATED Urine Culture Comments NOT INDICATED PD MEDICAL DECISION MAKING - ED course Complexity details: reviewed old records, reviewed results, re-evaluated patient , considered differential, d/w patient, d/w family ED course: Patient was seen and examined at bedside. Patient was asymptomatic and in no distress. Patient's labs were drawn. Urine was collected. patient had no significant abnormalities on his diagnostics and remained asymptomatic in the emergency department for two hours. Patient required no further immediate work up and was stable for discharge with outpatient follow up. Departure - Departure Disposition: 01 Home, Self Care Clinical Impression: Hot flash in male Condition: Good Instructions: ED Stress React Follow-Up: Nick Nova MD [Primary Care Provider] - Comments: Your diagnostics today were within normal limits. It is difficult to say what caused your symptoms exactly. You should follow up with your doctor if they become more frequent. You should return to the emergency department at any time for chest pain, shortness of breath, change in vision or focal weakness.
== END 2017-12-08 23:06 | disposition home or self-care (01) ==
LOC: ED 21:02
DX: R23.2 Flushing (principal); I10 Essential (primary) hypertension; I25.10 Atherosclerotic heart disease of native coronary artery without angina pectoris; I48.91 Unspecified atrial fibrillation; E78.00 Pure hypercholesterolemia, unspecified; I49.9 Cardiac arrhythmia, unspecified; G47.30 Sleep apnea, unspecified; K21.9 Gastro-esophageal reflux disease without esophagitis; M19.90 Unspecified osteoarthritis, unspecified site; Z95.1 Presence of aortocoronary bypass graft; Z79.82 Long term (current) use of aspirin
CPT/HCPCS: 36415; 80053; 81001; 81003; 83690; 84484; 85025; 87086; 99283

== ENCOUNTER 2018-06-06 14:59 | Emergency (ER) | payer MEDICARE, OTHER ==
--- NOTE | 2018-06-06 16:58 | ED Physician Documentation ---
PD HPI HEAD INJURY - Stated complaint Stated Complaint: HEAD LAC - Chief complaint Chief Complaint: Trauma Hd/Nk - History obtained from History obtained from: Patient - History of Present Illness Mechanism of head injury: Fell (He tripped and hit his forehead on a chair and has a laceration on the left forehead and the left side of the nose. It happened around 4:00. He is up-to-date on tetanus. There was no loss of consciousness. No other injuries.) Review of Systems Constitutional: reports: Reviewed and negative Throat: reports: Reviewed and negative Cardiac: reports: Reviewed and negative PD PAST MEDICAL HISTORY - Past Medical History Past Medical History: Yes Cardiovascular: Hypertension, High cholesterol, Coronary artery disease, Atrial fibrillation, Arrhythmia Respiratory: Sleep apnea, CPAP use Neuro: None Endocrine/Autoimmune: None GI: GERD, Hiatal hernia, Diverticulitis : Kidney stones HEENT: None Psych: None Musculoskeletal: Osteoarthritis, Fatigue, Other Derm: Other - Past Surgical History Past Surgical History: Yes General: Colonoscopy, EGD Ortho: Other Cardiovascular: CABG, Coronary stent HEENT: Cataracts, Tonsil/Adenoidectomy - Present Medications Home Medications: Ambulatory Orders Medication Instructions Recorded Confirmed Latanoprost 0.005% Ophth Drops 1 drops RIGHTEYE QPM 12/27/12 11/10/17 [Xalatan] Magnesium 500 mg PO DAILY 12/27/12 11/10/17 Nitroglycerin [Nitrostat] 0.4 mg SL Q5M PRN 12/27/12 11/10/17 [place]-3 Fatty Acids/Fish Oil [Fish 500 mg PO BID 12/27/12 11/10/17 Oil 1,000 mg Capsule] Cyanocobalamin (Vitamin B-12) 1,000 mcg PO DAILY 06/16/15 11/10/17 [Cyanocobalamin Injection] Metoprolol Succinate 50 mg PO DAILY 11/09/17 11/10/17 Aspirin [Aspirin EC] 81 mg PO DAILY 11/10/17 11/10/17 Betaxolol HCl [Betaxolol HCl 0.5%] 1 drops EACHEYE BID 11/10/17 11/10/17 Calcium Carbonate [Tums (Calcium 500 mg PO PRN PRN 11/10/17 11/10/17 Carbonate 500mg)] Cholecalciferol (Vitamin D3) 2,000 units PO DAILY 11/10/17 11/10/17 [Vitamin D3] Famotidine 10 mg PO BID 11/10/17 11/10/17 Isosorbide Mononitrate [Isosorbide 60 mg PO DAILY 11/10/17 11/10/17 Mononitrate ER] Rosuvastatin Calcium 5 mg PO DAILY 11/10/17 11/10/17 Vit A/Vit C/Vit E/Zinc/Copper 2 cap PO QDDINNER 11/10/17 11/10/17 [Preservision Areds Softgel] amLODIPine [Norvasc] 5 mg PO DAILY 11/10/17 11/10/17 Clopidogrel [Plavix] 06/06/18 06/06/18 - Allergies Allergies/Adverse Reactions: Allergies Allergy/AdvReac Type Severity Reaction Status Date / Time Sulfa (Sulfonamide Allergy Intermediate Hives Verified 06/06/18 15:12 Antibiotics) lansoprazole [From Prevacid] Allergy Mild Diarrhea Verified 06/06/18 15:12 Cvyzkox-Pge-Dvf Reductase Allergy Mild Indigestion/Chest Verified 06/06/18 15:12 Inhibitor pain tetracycline [Tetracycline] Allergy Mild Unknown Verified 12/08/17 21:18 acetaminophen [From Tylenol] AdvReac Mild Irreg. Verified 06/06/18 15:12 heart rate diphenhydramine HCl * AdvReac Mild A-fib Verified 06/06/18 15:12 [From Benadryl] gluten AdvReac Cramps Verified 06/06/18 15:12 tree nuts Allergy Mild Unknown Uncoded 06/06/18 15:12 eggs AdvReac Mild Indigestion Uncoded 06/06/18 15:12 oats AdvReac Mild Indigestion Uncoded 06/06/18 15:12 - Social History Does the pt smoke?: No Smoking Status: Never smoker Does the pt drink ETOH?: Yes Does the pt have substance abuse?: No - Immunizations Immunizations are current?: Yes - POLST Patient has POLST: No PD ED PE NORMAL - Vitals Vital signs reviewed: Yes - General General: Alert and oriented X 3, No acute distress - HEENT HEENT: Other (There is a shallow laceration on the left forehead and another one just to the left of the bridge of the nose. There is no epistaxis. 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 speech Eye Opening: Spontaneous Motor: Obeys Commands Verbal: Oriented GCS Score: 15 - Psych Psych: Normal mood, Normal affect Results - Vitals Vitals: Vital Signs - 24 hr 06/06/18 15:09 Temperature 37.1 C Heart Rate 72 Respiratory 18 Rate Blood Pressure 153/70 H O2 Saturation 94 Oxygen O2 Source Room air - Rads (name of study) CT Head Radiology: EMP read contemporaneously (no iCH) Procedures - Laceration (location) forehead/L nasal bridge Length in cm: 3 Wound type: Linear, Superficial Wound Preparation: Irrigated copiously NS Skin layer closure: Dermabond Other: Tetanus UTD Complexity: Simple PD MEDICAL DECISION MAKING - Sepsis Event Vital Signs: Vital Signs - 24 hr 06/06/18 15:09 Temperature 37.1 C Heart Rate 72 Respiratory 18 Rate Blood Pressure 153/70 H O2 Saturation 94 Oxygen O2 Source Room air Departure - Departure Disposition: 01 Home, Self Care Clinical Impression: Laceration Injury of head and neck Qualifiers: Encounter type: initial encounter Qualified Code(s): S09.90XA - Unspecified injury of head, initial encounter; S19.9XXA - Unspecified injury of neck, initial encounter Condition: Good Record reviewed to determine appropriate education?: Yes Instructions: ED Laceration Facial Skin Glue Comments: Your blood pressure was elevated today on check into the emergency department. This does not mean that you have hypertension, it is a common phenomenon to come to the emergency department and have elevated blood pressure. I recommend that you see your primary care physician within the week to have it rechecked when you are feeling better.
--- NOTE | 2018-06-06 17:37 | CT Report ---
Reason: head inj Procedure Date: 06/06/2018 Accession Number: [id number] / [id number] Procedure: CT - Head W/O CPT Code: FULL RESULT: EXAM: CT HEAD EXAM DATE: 06/06/2018 05:10 PM. CLINICAL HISTORY: Fall, pain. COMPARISON: None. TECHNIQUE: Multiaxial CT images were obtained from the foramen magnum to the vertex. Reformats: Sagittal and coronal. IV contrast: None. In accordance with CT protocol optimization, one or more of the following dose reduction techniques were utilized for this exam: automated exposure control, adjustment of mA and/or KV based on patient size, or use of iterative reconstructive technique. FINDINGS: Parenchyma: No intraparenchymal hemorrhage. No evidence of mass, midline shift, or CT findings of acute infarction. Loera-white differentiation is distinct. Diffuse chronic microangiopathic white matter changes. Extraaxial Spaces: Normal for age. No subdural or epidural collections. Ventricles: The ventricles and cortical sulci are enlarged, consistent with age-related tissue loss. Sinuses and orbits: Imaged paranasal sinuses, orbits, and mastoids show no significant abnormality. Bones: Unremarkable. Other: Superficial soft tissue swelling over the left forehead. IMPRESSION: 1. Soft tissue swelling. 2. Generalized age-related cortical atrophic changes without evidence of acute intracranial abnormality. RADIA
[2018-06-06 18:05] VITALS: BP 121/66
== END 2018-06-06 18:04 | disposition home or self-care (01) ==
LOC: ED 14:59
DX: S01.81XA Laceration without foreign body of other part of head, initial encounter (principal); S01.21XA Laceration without foreign body of nose, initial encounter; S09.90XA Unspecified injury of head, initial encounter; S19.9XXA Unspecified injury of neck, initial encounter; W01.190A Fall on same level from slipping, tripping and stumbling with subsequent striking against furniture, initial encounter; I10 Essential (primary) hypertension; Z79.02 Long term (current) use of antithrombotics/antiplatelets; Z79.82 Long term (current) use of aspirin
CPT/HCPCS: 12013; 70450; 99283

== ENCOUNTER 2018-06-19 13:14 | Outpatient (CLI) | payer MEDICARE, OTHER ==
--- NOTE | 2018-06-19 21:33 | XRAY Report ---
Reason: RT KNEE PAIN Procedure Date: 06/19/2018 Accession Number: [id number] / [id number] Procedure: XR - Knee 3 View RT CPT Code: FULL RESULT: EXAM: RIGHT KNEE RADIOGRAPHY EXAM DATE: 06/19/2018 01:41 PM. CLINICAL HISTORY: RT KNEE PAIN. COMPARISON: KNEE 3 VIEW RT 04/17/2014 2:13 PM. TECHNIQUE: 3 views. FINDINGS: Bones: No evidence for acute fracture. No bone lesion is seen. Bone demineralization. Joints: Minimal patellofemoral degenerative joint disease with posterior osteophytes. Femoral tibial joint appears unremarkable. No subluxation. Soft Tissues: Unremarkable. IMPRESSION: No acute findings are seen. Minimal patellofemoral degenerative joint disease. RADIA
== END 2018-06-19 13:15 | disposition home or self-care (01) ==
LOC: DI 13:14
PROVIDERS: ATTEND Nurse Practitioner Family
DX: M17.11 Unilateral primary osteoarthritis, right knee (principal)

== ENCOUNTER 2018-11-05 13:12 | Outpatient (CLI) | payer MEDICARE, OTHER | END 2018-11-05 13:13 | disposition home or self-care (01) | LOC: SC 13:12 | PROVIDERS: ATTEND Nurse Practitioner Family | DX: G47.33 Obstructive sleep apnea (adult) (pediatric) (principal) | CPT/HCPCS: 99214; G0463; 99212 ==

== ENCOUNTER 2018-12-25 07:44 | Outpatient (CLI) | payer MEDICARE, OTHER | END 2018-12-25 07:45 | disposition critical access hospital (66) | LOC: EMS 07:44 | PROVIDERS: ATTEND Surgery | DX: R56.9 Unspecified convulsions (principal) | CPT/HCPCS: A0425; A0429 ==

== ENCOUNTER 2018-12-25 07:57 | Emergency (ER) | payer MEDICARE, OTHER ==
--- NOTE | 2018-12-25 08:07 | ED Physician Documentation ---
PD HPI FOCAL NEURO - Stated complaint Stated Complaint: SZ LIKE ACTIVITY - History obtained from History obtained from: Patient, EMS - History of Present Illness Timing - onset: Today (He woke today with spasmodic uncontrollable movements of the left upper and lower extremity.Is been going on for several hours. He has some discomfort in his left shoulder because of the repetitive motions but otherwise denies headache or other pains. He is never had this before. No history of neurologic issues.) Review of Systems Constitutional: reports: Reviewed and negative Ears: reports: Reviewed and negative Throat: reports: Reviewed and negative Cardiac: reports: Reviewed and negative Respiratory: reports: Reviewed and negative PD PAST MEDICAL HISTORY - Past Medical History Cardiovascular: Hypertension, High cholesterol, Coronary artery disease, Atrial fibrillation, Arrhythmia Respiratory: Sleep apnea, CPAP use Neuro: None Endocrine/Autoimmune: None GI: GERD, Hiatal hernia, Diverticulitis : Kidney stones HEENT: None Psych: None Musculoskeletal: Osteoarthritis, Fatigue, Other Derm: Other - Past Surgical History Past Surgical History: Yes General: Colonoscopy, EGD Ortho: Other Cardiovascular: CABG, Coronary stent HEENT: Cataracts, Tonsil/Adenoidectomy - Present Medications Home Medications: Ambulatory Orders Medication Instructions Recorded Confirmed Latanoprost 0.005% Ophth Drops 1 drops RIGHTEYE QPM 12/27/12 11/10/17 [Xalatan] Magnesium 500 mg PO DAILY 12/27/12 11/10/17 Nitroglycerin [Nitrostat] 0.4 mg SL Q5M PRN 12/27/12 11/10/17 [place]-3 Fatty Acids/Fish Oil [Fish 500 mg PO BID 12/27/12 11/10/17 Oil 1,000 mg Capsule] Cyanocobalamin (Vitamin B-12) 1,000 mcg PO DAILY 06/16/15 11/10/17 [Cyanocobalamin Injection] Metoprolol Succinate 50 mg PO DAILY 11/09/17 11/10/17 Aspirin [Aspirin EC] 81 mg PO DAILY 11/10/17 11/10/17 Betaxolol HCl [Betaxolol HCl 0.5%] 1 drops EACHEYE BID 11/10/17 11/10/17 Calcium Carbonate [Tums (Calcium 500 mg PO PRN PRN 11/10/17 11/10/17 Carbonate 500mg)] Cholecalciferol (Vitamin D3) 2,000 units PO DAILY 11/10/17 11/10/17 [Vitamin D3] Famotidine 10 mg PO BID 11/10/17 11/10/17 Isosorbide Mononitrate [Isosorbide 60 mg PO DAILY 11/10/17 11/10/17 Mononitrate ER] Rosuvastatin Calcium 5 mg PO DAILY 11/10/17 11/10/17 Vit A/Vit C/Vit E/Zinc/Copper 2 cap PO QDDINNER 11/10/17 11/10/17 [Preservision Areds Softgel] amLODIPine [Norvasc] 5 mg PO DAILY 11/10/17 11/10/17 Clopidogrel [Plavix] 06/06/18 06/06/18 - Allergies Allergies/Adverse Reactions: Allergies Allergy/AdvReac Type Severity Reaction Status Date / Time Sulfa (Sulfonamide Allergy Intermediate Hives Verified 06/06/18 15:12 Antibiotics) lansoprazole [From Prevacid] Allergy Mild Diarrhea Verified 06/06/18 15:12 Iwnbzik-Hfr-Gvu Reductase Allergy Mild Indigestion/Chest Verified 06/06/18 15:12 Inhibitor pain tetracycline [Tetracycline] Allergy Mild Unknown Verified 12/08/17 21:18 acetaminophen [From Tylenol] AdvReac Mild Irreg. Verified 06/06/18 15:12 heart rate diphenhydramine HCl * AdvReac Mild A-fib Verified 06/06/18 15:12 [From Benadryl] amlodipine AdvReac Rash Verified 12/25/18 08:07 gluten AdvReac Cramps Verified 06/06/18 15:12 ibuprofen [From Advil] AdvReac Rash Verified 12/25/18 08:06 tree nuts Allergy Mild Unknown Uncoded 06/06/18 15:12 eggs AdvReac Mild Indigestion Uncoded 06/06/18 15:12 oats AdvReac Mild Indigestion Uncoded 06/06/18 15:12 - Social History Does the pt smoke?: No Smoking Status: Never smoker Does the pt drink ETOH?: Yes Does the pt have substance abuse?: No - Family History Family history: reports: Non contributory - Immunizations Immunizations are current?: Yes - POLST Patient has POLST: No PD ED PE NORMAL - Vitals Vital signs reviewed: Yes - General General: Alert and oriented X 3, No acute distress - HEENT HEENT: Other (Left pupil is larger than the right which she says is pre- existing. He has mild disconjugate gaze when he looks up into the right and admits to diplopia looking up there but says it might be because he is not wearing his glasses. Symmetric face.) - Neck Neck: Supple, no meningeal sign, No bony TTP - Cardiac Cardiac: RRR, No murmur - Respiratory Respiratory: No respiratory distress, Clear bilaterally - Abdomen Abdomen: Normal bowel sounds, Soft, Non tender - Back Back: No CVA TTP, No spinal TTP - Derm Derm: Normal color, Warm and dry - Neuro Neuro: Alert and oriented X 3, remote sensing advisor 2-12 intact, Other (Difficulty with gdybft-kc-onet and tdjy-rz-wpbq testing on the left) Eye Opening: Spontaneous Motor: Obeys Commands Verbal: Oriented GCS Score: 15 Results - Vitals Vitals: Vital Signs - 24 hr 12/25/18 12/25/18 07:59 10:49 Temperature 37.3 C Heart Rate 84 69 Respiratory 24 16 Rate Blood Pressure 151/72 H 96/80 O2 Saturation 93 97 Oxygen O2 Source Room air - Labs Labs: Laboratory Tests 12/25/18 12/25/18 12/25/18 08:20 08:20 08:20 WBC 5.7 RBC 4.09 L Hgb 13.0 L Hct 37.8 L MCV 92.5 MCH 31.8 H MCHC 34.4 RDW 13.2 Plt Count 165 MPV 7.6 Neut # (Auto) 3.0 Lymph # (Auto) 1.6 [place] # (Auto) 0.9 Eos # (Auto) 0.2 Baso # (Auto) 0.1 Absolute Nucleated RBC 0.00 Nucleated RBC % 0.0 PT 11.8 INR 1.1 Sodium 137 Potassium 4.0 Chloride 102 Carbon Dioxide 25 Anion Gap 10.0 BUN 17 Creatinine 1.3 H Estimated GFR (MDRD) 52 L Glucose 100 Calcium 9.0 Total Bilirubin 0.6 AST 30 ALT 21 Alkaline Phosphatase 82 Total Creatine Kinase 267 CK-MB (CK-2) Troponin I Total Protein 6.4 L Albumin 3.4 Globulin 3.0 Albumin/Globulin Ratio 1.1 Lipase 38 12/25/18 08:20 WBC RBC Hgb Hct MCV MCH MCHC RDW Plt Count MPV Neut # (Auto) Lymph # (Auto) [place] # (Auto) Eos # (Auto) Baso # (Auto) Absolute Nucleated RBC Nucleated RBC % PT INR Sodium Potassium Chloride Carbon Dioxide Anion Gap BUN Creatinine Estimated GFR (MDRD) Glucose Calcium Total Bilirubin AST ALT Alkaline Phosphatase Total Creatine Kinase CK-MB (CK-2) 8.3 H Troponin I < 0.04 Total Protein Albumin Globulin Albumin/Globulin Ratio Lipase - Rads (name of study) CT Head Radiology: EMP read contemporaneously (NAD) PD MEDICAL DECISION MAKING - ED course ED course: 88-year-old gentleman who presents with not completely volitional but controllable movements of the left upper and lower extremity. He has no history of seizures. He does have a remote history of prostate cancer. No evidence of abnormality on head CT and this was followed by MRI of the brain also without pertinent positive findings. Symptoms went away after oral Ativan here and he was ambulatory in the department. Departure - Departure Disposition: 01 Home, Self Care Clinical Impression: Jerking movements of extremities Condition: Good Record reviewed to determine appropriate education?: Yes Comments: Your labs, CAT scan of your brain, MRI of your brain showed no sick allergies. Return for new or worsening symptoms. Follow-up with your physician, if symptoms are persistent I suspect he/she will refer you onto a neurologist.
[2018-12-25 08:34] LABS: BASOPHILS # (AUTO) 0.1 10^3/uL (0.0-0.1); BASOPHILS % (AUTO) 1.4 %; EOSINOPHILS # (AUTO) 0.2 10^3/uL (0.0-0.7); EOSINOPHILS % (AUTO) 3.1 %; LYMPHOCYTES # (AUTO) 1.6 10^3/uL (1.5-3.5); LYMPHOCYTES % (AUTO) 27.6 %; MEAN CORPUSCULAR HEMOGLOBIN 31.8 pg (27.0-31.0); MEAN CORPUSCULAR HGB CONC 34.4 g/dL (32.0-36.0); MEAN CORPUSCULAR VOLUME 92.5 fL (80.0-94.0); MEAN PLATELET VOLUME 7.6 fL (7.4-11.4); MONOCYTES # (AUTO) 0.9 10^3/uL (0.0-1.0); MONOCYTES % (AUTO) 15.3 %; NEUTROPHILS % (AUTO) 52.6 %; PLT - PLATELET COUNT 165 10^3/uL (130-450); RED BLOOD COUNT 4.09 10^6/uL (4.70-6.10); RED CELL DISTRIBUTION WIDTH 13.2 % (12.0-15.0); WHITE BLOOD COUNT 5.7 x10^3/uL (4.8-10.8)
--- NOTE | 2018-12-25 08:37 | CT Report ---
Reason: LUE/LLE movements Procedure Date: 12/25/2018 Accession Number: [id number] / [id number] Procedure: CT - HEAD WO CPT Code: FULL RESULT: EXAM: CT HEAD EXAM DATE: 12/25/2018 08:18 AM. CLINICAL HISTORY: LUE/LLE movements. COMPARISON: HEAD W/O 06/06/2018 5:07 PM. TECHNIQUE: Multiaxial CT images were obtained from the foramen magnum to the vertex. Reformats: Sagittal and coronal. IV contrast: None. In accordance with CT protocol optimization, one or more of the following dose reduction techniques were utilized for this exam: automated exposure control, adjustment of mA and/or KV based on patient size, or use of iterative reconstructive technique. FINDINGS: Parenchyma: Evidence of diffuse parenchymal volume loss again noted. Small amount of low attenuation in the periventricular white matter again noted. No acute hemorrhage, mass-effect, or midline shift. Loera-white differentiation appears maintained. Extraaxial Spaces: No acute extra-axial collection. Ventricles: Stable, appropriate in size and configuration. Sinuses and Orbits: Imaged paranasal sinuses, orbits, and mastoids show no significant abnormality. Bones: No depressed skull fracture. Other: Previous left frontal scalp soft tissue swelling has resolved. IMPRESSION: No acute intracranial abnormality. No significant change since the prior study. RADIA
[2018-12-25 08:46] LABS: ALBUMIN 3.4 g/dL (3.2-5.5); ALBUMIN/GLOBULIN RATIO 1.1 (1.0-2.2); BILIRUBIN,TOTAL 0.6 mg/dL (0.2-1.0); CREATININE 1.3 mg/dL (0.6-1.2); TOTAL PROTEIN 6.4 g/dL (6.7-8.2)
[2018-12-25 08:50] LABS: INR 1.1 (0.8-1.2); PT - PROTHROMBIN TIME 11.8 secs (9.9-12.6)
[2018-12-25 08:51] LABS: TROPONIN I < 0.04 ng/mL (<0.49)
[2018-12-25 08:54] LABS: CREATINE KINASE MB 8.3 ng/mL (0.6-6.3)
[2018-12-25] MEDS ORDERED: LORazepam 0.5 MG TABLET PO STA (08:54)
--- NOTE | 2018-12-25 12:46 | MRI Report ---
Reason: L sided focal sz, numb Procedure Date: 12/25/2018 Accession Number: [id number] / [id number] Procedure: MRI - Brain W/O CPT Code: FULL RESULT: MRI BRAIN WITHOUT CONTRAST INDICATION: 88-year-old male. Left-sided focal seizures. Left-sided weakness and numbness. TECHNIQUE: 1. Sagittal T1 3D. 2. Coronal STIR and FLAIR. 3. Axial T1 3D, FLAIR, T2*GRE and DWI. COMPARISON: Head CT 12/25/2018 FINDINGS: There is generalized prominence of the cerebral cortical sulci and cerebellar folia, considered within normal limits for stated age. There is mild ex vacuo/lateral ventriculomegaly. No hydrocephalus. A mild amount of white matter disease is identified in the supratentorial brain, manifested as focal and confluent T2 hyperintensities that are scattered throughout the periventricular, deep and subcortical white matter bilaterally. A frontoparietal distribution predominates. Signal intensity of cortex and white matter is otherwise unremarkable. There appear to be flow voids for the main intracranial arteries. No abnormal diffusion restriction is demonstrated. No evidence of acute or chronic hemorrhage on T2*GRE sequence. No abnormal extraaxial fluid collection. No mass effect or midline shift. On the coronal STIR sequence by visual inspection the hippocampi appear symmetric in size without obvious asymmetric volume loss on the left or right. The hippocampal architecture appears to be preserved bilaterally. No abnormal FLAIR hyperintensity is seen in either hippocampus to suggest the presence of gliosis. There is no evidence of mesial temporal sclerosis. No obvious focal cortical dysplasia or reynoso matter heterotopia is demonstrated on the T1 MP RAGE sequence. No evidence of acute or chronic hemorrhage on T2*GRE sequence. No abnormal extraaxial fluid collection. No mass effect or midline shift. Very limited evaluation of the orbits reveals no gross pathology. Changes of previous cataract surgery are demonstrated in the optic globes bilaterally. There is mild mucosal thickening scattered throughout the ethmoid air cells and in both maxillary sinuses. The paranasal sinuses are otherwise clear. No mastoid or middle ear effusion. IMPRESSION: 1. Age appropriate senescent changes are demonstrated within the brain. 2. A mild amount of white matter disease is identified in the supratentorial brain, likely representing chronic microangiopathy. 3. No other significant intracranial findings on this unenhanced brain MRI. In particular, there is no evidence of infarction, hemorrhage or other acute brain pathology. In addition, no potential epileptogenic focus has been identified within the brain.
[2018-12-25 12:55] VITALS: BP 113/61
== END 2018-12-25 13:07 | disposition home or self-care (01) ==
LOC: EDUNIT# → ED 07:57
DX: R56.9 Unspecified convulsions (principal); I10 Essential (primary) hypertension; Z86.79 Personal history of other diseases of the circulatory system; Z79.01 Long term (current) use of anticoagulants
CPT/HCPCS: 36415; 70450; 70551; 80053; 82550; 82553; 83690; 84484; 85025; 85610; 99283; 99284; A9270

== ENCOUNTER 2019-02-14 08:00 | Outpatient (CLI) | payer MEDICARE, OTHER | END 2019-02-14 08:01 | disposition critical access hospital (66) | LOC: EMS 08:00 | PROVIDERS: ATTEND Surgery | DX: R07.89 Other chest pain (principal) | CPT/HCPCS: A0425; A0427 ==

== ENCOUNTER 2019-02-14 19:00 | Emergency (ER) | payer MEDICARE, OTHER ==
[2019-02-14 19:34] LABS: BASOPHILS # (AUTO) 0.1 10^3/uL (0.0-0.1); BASOPHILS % (AUTO) 0.6 %; EOSINOPHILS # (AUTO) 0.2 10^3/uL (0.0-0.7); EOSINOPHILS % (AUTO) 1.9 %; HGB - HEMOGLOBIN 12.3 g/dL (14.0-18.0); LYMPHOCYTES # (AUTO) 1.7 10^3/uL (1.5-3.5); LYMPHOCYTES % (AUTO) 17.2 %; MEAN CORPUSCULAR HEMOGLOBIN 30.8 pg (27.0-31.0); MEAN CORPUSCULAR HGB CONC 32.2 g/dL (32.0-36.0); MEAN CORPUSCULAR VOLUME 95.5 fL (80.0-94.0); MONOCYTES # (AUTO) 1.2 10^3/uL (0.0-1.0); MONOCYTES % (AUTO) 12.6 %; NEUTROPHILS # (AUTO) 6.4 10^3/uL (1.5-6.6); NEUTROPHILS % (AUTO) 67.3 %; PLT - PLATELET COUNT 269 10^3/uL (130-450); RED CELL DISTRIBUTION WIDTH 12.6 % (12.0-15.0); WHITE BLOOD COUNT 9.6 x10^3/uL (4.8-10.8)
[2019-02-14 19:42] LABS: ALBUMIN 3.5 g/dL (3.2-5.5); ALBUMIN/GLOBULIN RATIO 0.9 (1.0-2.2); BILIRUBIN,TOTAL 0.5 mg/dL (0.2-1.0); CALCIUM 9.2 mg/dL (8.5-10.3); CREATININE 1.1 mg/dL (0.6-1.2); TOTAL PROTEIN 7.5 g/dL (6.7-8.2)
--- NOTE | 2019-02-14 19:58 | ED Physician Documentation ---
PD HPI CHEST PAIN - Stated complaint Stated Complaint: cp - Chief complaint Chief Complaint: Cardiac - History obtained from History obtained from: Patient, Family - History of Present Illness Timing - onset: Today Timing - onset during: Rest Timing - duration: Hours (6) Timing - details: Gradual onset Pain level max: 5 Pain level now: 5 Quality: Pressure Location: Substernal Radiation: No: Jaw, Neck, Back, Abdominal, Left upper extremity, Right upper extremity Improved by: Nitro (CLOUD PHYSICIST), ASA (CLOUD PHYSICIST) Worsened by: No: Exertion, Inspiration, Eating, Movement Associated symptoms: Nausea. No: Shortness of air, Diaphoresis, Vomiting, Feeling faint / dizzy, General Weakness, Palpitations, Cough Similar symptoms before: Diagnosis (CAD, GERD) - Additional information Additional information: 88-year-old male with chest pain today. He has had 4-5 cardiac stents in the past as well as a double bypass. Has known coronary artery disease and has been told by his dealer relationship manager that this is not stentable. States also has GERD that feels similar. Review of Systems Ten Systems: 10 systems reviewed and negative Constitutional: denies: Fever, Chills Nose: denies: Rhinorrhea / runny nose, Congestion GI: denies: Nausea, Vomiting, Diarrhea Skin: denies: Rash Musculoskeletal: denies: Neck pain, Back pain Neurologic: denies: Headache PD PAST MEDICAL HISTORY - Past Medical History Past Medical History: Yes Cardiovascular: Hypertension, High cholesterol, Coronary artery disease, Atrial fibrillation, Arrhythmia Respiratory: Sleep apnea, CPAP use Neuro: None Endocrine/Autoimmune: None GI: GERD, Hiatal hernia, Diverticulitis : Kidney stones HEENT: None Psych: None Musculoskeletal: Osteoarthritis, Fatigue, Other Derm: Other - Past Surgical History Past Surgical History: Yes General: Colonoscopy, EGD Ortho: Other Cardiovascular: CABG, Coronary stent HEENT: Cataracts, Tonsil/Adenoidectomy - Present Medications Home Medications: Ambulatory Orders Medication Instructions Recorded Confirmed Latanoprost 0.005% Ophth Drops 1 drops RIGHTEYE QPM 12/27/12 11/10/17 [Xalatan] Magnesium 500 mg PO DAILY 12/27/12 11/10/17 Nitroglycerin [Nitrostat] 0.4 mg SL Q5M PRN 12/27/12 11/10/17 [place]-3 Fatty Acids/Fish Oil [Fish 500 mg PO BID 12/27/12 11/10/17 Oil 1,000 mg Capsule] Cyanocobalamin (Vitamin B-12) 1,000 mcg PO DAILY 06/16/15 11/10/17 [Cyanocobalamin Injection] Metoprolol Succinate 50 mg PO DAILY 11/09/17 11/10/17 Aspirin [Aspirin EC] 81 mg PO DAILY 11/10/17 11/10/17 Betaxolol HCl [Betaxolol HCl 0.5%] 1 drops EACHEYE BID 11/10/17 11/10/17 Calcium Carbonate [Tums (Calcium 500 mg PO PRN PRN 11/10/17 11/10/17 Carbonate 500mg)] Cholecalciferol (Vitamin D3) 2,000 units PO DAILY 11/10/17 11/10/17 [Vitamin D3] Famotidine 10 mg PO BID 11/10/17 11/10/17 Isosorbide Mononitrate [Isosorbide 60 mg PO DAILY 11/10/17 11/10/17 Mononitrate ER] Rosuvastatin Calcium 5 mg PO DAILY 11/10/17 11/10/17 Vit A/Vit C/Vit E/Zinc/Copper 2 cap PO QDDINNER 11/10/17 11/10/17 [Preservision Areds Softgel] amLODIPine [Norvasc] 5 mg PO DAILY 11/10/17 11/10/17 Clopidogrel [Plavix] 06/06/18 06/06/18 - Allergies Allergies/Adverse Reactions: Allergies Allergy/AdvReac Type Severity Reaction Status Date / Time Sulfa (Sulfonamide Allergy Intermediate Hives Verified 02/14/19 19:10 Antibiotics) lansoprazole [From Prevacid] Allergy Mild Diarrhea Verified 02/14/19 19:10 Zxdmkel-Njm-Iqo Reductase Allergy Mild Indigestion/Chest Verified 02/14/19 19:10 Inhibitor pain tetracycline [Tetracycline] Allergy Mild Unknown Verified 02/14/19 19:10 acetaminophen [From Tylenol] AdvReac Mild Irreg. Verified 02/14/19 19:10 heart rate diphenhydramine HCl * AdvReac Mild A-fib Verified 02/14/19 19:10 [From Benadryl] amlodipine AdvReac Rash Verified 02/14/19 19:10 gluten AdvReac Cramps Verified 06/20/19 19:10 ibuprofen [From Advil] AdvReac Rash Verified 02/14/19 19:10 tree nuts Allergy Mild Unknown Uncoded 06/06/18 15:12 eggs AdvReac Mild Indigestion Uncoded 06/06/18 15:12 oats AdvReac Mild Indigestion Uncoded 06/06/18 15:12 - Social History Does the pt smoke?: No Smoking Status: Never smoker Does the pt drink ETOH?: Yes Does the pt have substance abuse?: No - Immunizations Immunizations are current?: Yes - POLST Patient has POLST: No PD ED PE NORMAL - Vitals Vital signs reviewed: Yes - General General: Alert and oriented X 3, No acute distress - HEENT HEENT: Moist mucous membranes - Neck Neck: Supple, no meningeal sign - Cardiac Cardiac: RRR, Strong equal pulses - Respiratory Respiratory: No respiratory distress, Clear bilaterally - Abdomen Abdomen: Soft, Non tender, Non distended - Derm Derm: Warm and dry, No rash - Extremities Extremities: No edema, No calf tenderness / cord - Neuro Neuro: Alert and oriented X 3 - Psych Psych: Normal mood, Normal affect Results - Vitals Vitals: Vital Signs - 24 hr 02/14/19 02/14/19 02/14/19 19:01 20:05 20:44 Temperature 36.7 C Heart Rate 84 76 77 Respiratory 16 16 16 Rate Blood Pressure 212/90 H 154/73 H 151/77 H O2 Saturation 100 97 98 02/14/19 02/14/19 21:13 21:48 Temperature Heart Rate 73 77 Respiratory 16 16 Rate Blood Pressure 149/79 H 152/86 H O2 Saturation 98 98 Oxygen O2 Source Room air - EKG (time done) 1901 Rate: Rate (enter#) (87) Rhythm: NSR Wirtz: Normal Intervals: Normal PA QRS: Normal Ischemia: Normal ST segments - Labs Labs: Laboratory Tests 02/14/19 02/14/19 02/14/19 19:23 19:23 19:23 WBC 9.6 RBC 4.00 L Hgb 12.3 L Hct 38.2 L MCV 95.5 H MCH 30.8 MCHC 32.2 RDW 12.6 Plt Count 269 MPV 9.0 Neut # (Auto) 6.4 Lymph # (Auto) 1.7 [place] # (Auto) 1.2 H Eos # (Auto) 0.2 Baso # (Auto) 0.1 Absolute Nucleated RBC 0.00 Nucleated RBC % 0.0 Sodium 137 Potassium 3.9 Chloride 101 Carbon Dioxide 27 Anion Gap 9.0 BUN 17 Creatinine 1.1 Estimated GFR (MDRD) 63 L Glucose 123 H Calcium 9.2 Total Bilirubin 0.5 AST 22 ALT 17 Alkaline Phosphatase 106 Troponin I < 0.04 Total Protein 7.5 Albumin 3.5 Globulin 4.0 Albumin/Globulin Ratio 0.9 L Lipase 42 02/14/19 21:21 WBC RBC Hgb Hct MCV MCH MCHC RDW Plt Count MPV Neut # (Auto) Lymph # (Auto) [place] # (Auto) Eos # (Auto) Baso # (Auto) Absolute Nucleated RBC Nucleated RBC % Sodium Potassium Chloride Carbon Dioxide Anion Gap BUN Creatinine Estimated GFR (MDRD) Glucose Calcium Total Bilirubin AST ALT Alkaline Phosphatase Troponin I < 0.04 Total Protein Albumin Globulin Albumin/Globulin Ratio Lipase - Rads (name of study) cxr Radiology: Prelim report reviewed, EMP read contemporaneously, See rad report (There is a left upper lobe asymmetric airspace opacity which is new compared with 10/18/2017 possible patchy pneumonia or pneumonitis. Otherwise negative) PD MEDICAL DECISION MAKING - ED course Complexity details: reviewed results, re-evaluated patient, considered differential, d/w patient, d/w family, d/w production consultant ED course: 88-year-old male with chest pain. Does not appear consistent with acute coronary syndrome. Possible pneumonia versus pneumonitis on chest x-ray. No infectious symptoms. No coughing. No fevers. No leukocytosis. Will hold antibiotics at this time and see how this progresses. Negative troponin x2. Discussed the case with Dr. Amato, dealer relationship manager who will follow the patient up in the office. Patient and family counseled regarding signs and symptoms for which I believe and urgent re-evaluation would be necessary. Patient with good understanding of and agreement to plan and is comfortable going home at this time This document was made in part using voice recognition software. While efforts are made to proofread this document, sound alike and grammatical errors may occur. Departure - Departure Disposition: 01 Home, Self Care Clinical Impression: Chest pain Condition: Good Health Concerns: chest pain Plan of Treatment: r/o IN, follow up cards Care Goals: r/o IN, follow up cards Assessment: improved Instructions: ED Chest Pain Atypical Unkn Cause Follow-Up: Nick Nova MD [Primary Care Provider] - Within 1 week Comments: Follow-up with your dealer relationship manager next week. Return if you worsen. Your heart tests are normal tonight. I did speak with Dr. Amato from [facility] Discharge Date/Time: 02/14/19 21:55
--- NOTE | 2019-02-14 20:44 | XRAY Report ---
Reason: Chest Pain Procedure Date: 02/14/2019 Accession Number: [id number] / [id number] Procedure: XR - Chest 1 View X-Ray CPT Code: 14829 FULL RESULT: EXAM: CHEST RADIOGRAPHY EXAM DATE: 02/14/2019 07:52 PM. CLINICAL HISTORY: Chest Pain. COMPARISON: CHEST 1 VIEW 11/10/2017 8:13 AM CHEST 2 VIEW PA/LAT 11/02/2013 11:05 PM XR CHEST PA AND LAT 11/27/2007 12:28 PM CHEST 1 VIEW 10/18/2017 12:15 PM. TECHNIQUE: 1 view. FINDINGS: Lungs/Pleura: There is a vague air symmetric density in the left upper lobe which was previously obscured by a cardiac lead. Mediastinum: The heart size is normal. Previous median sternotomy is noted. There is mild aortic atherosclerotic calcification. Other: None. IMPRESSION: 1. There is a left upper lobe asymmetric airspace opacity which is new compared with 10/18/2017. Possible patchy pneumonia or pneumonitis. Otherwise negative. RADIA
[2019-02-14 21:49] VITALS: BP 152/86
== END 2019-02-14 21:55 | disposition home or self-care (01) ==
LOC: EDUNIT# → ED 19:00
DX: R07.9 Chest pain, unspecified (principal); K21.9 Gastro-esophageal reflux disease without esophagitis; I10 Essential (primary) hypertension; E78.00 Pure hypercholesterolemia, unspecified; I25.10 Atherosclerotic heart disease of native coronary artery without angina pectoris; I48.91 Unspecified atrial fibrillation; G47.30 Sleep apnea, unspecified; K44.9 Diaphragmatic hernia without obstruction or gangrene; M19.90 Unspecified osteoarthritis, unspecified site; Z95.1 Presence of aortocoronary bypass graft; Z95.5 Presence of coronary angioplasty implant and graft; Z87.442 Personal history of urinary calculi; Z79.82 Long term (current) use of aspirin; Z79.891 Long term (current) use of opiate analgesic
CPT/HCPCS: 36415; 71045; 80053; 83690; 84484; 85025; 93005; 99284

== ENCOUNTER 2019-08-02 04:32 | Outpatient (CLI) | payer MEDICARE, OTHER | END 2019-08-02 04:33 | disposition critical access hospital (66) | LOC: EMS 04:32 | PROVIDERS: ATTEND Surgery | DX: R07.9 Chest pain, unspecified (principal) | CPT/HCPCS: A0425; A0429 ==

== ENCOUNTER 2019-08-02 04:42 | Emergency (ER) | payer MEDICARE, OTHER ==
[2019-08-02 05:11] LABS: BASOPHILS % (AUTO) 0.6 %; EOSINOPHILS # (AUTO) 0.1 10^3/uL (0.0-0.7); EOSINOPHILS % (AUTO) 1.7 %; HGB - HEMOGLOBIN 11.7 g/dL (14.0-18.0); LYMPHOCYTES # (AUTO) 1.1 10^3/uL (1.5-3.5); MEAN CORPUSCULAR HEMOGLOBIN 30.4 pg (27.0-31.0); MEAN CORPUSCULAR HGB CONC 33.2 g/dL (32.0-36.0); MEAN CORPUSCULAR VOLUME 91.4 fL (80.0-94.0); MEAN PLATELET VOLUME 8.6 fL (7.4-11.4); MONOCYTES # (AUTO) 1.3 10^3/uL (0.0-1.0); MONOCYTES % (AUTO) 23.9 %; NEUTROPHILS # (AUTO) 2.8 10^3/uL (1.5-6.6); NEUTROPHILS % (AUTO) 52.4 %; PLT - PLATELET COUNT 248 10^3/uL (130-450); RED BLOOD COUNT 3.85 10^6/uL (4.70-6.10); RED CELL DISTRIBUTION WIDTH 12.9 % (12.0-15.0); WHITE BLOOD COUNT 5.4 x10^3/uL (4.8-10.8)
[2019-08-02 05:23] LABS: ALBUMIN 3.3 g/dL (3.2-5.5); ALBUMIN/GLOBULIN RATIO 0.8 (1.0-2.2); BILIRUBIN,TOTAL 0.5 mg/dL (0.2-1.0); CALCIUM 9.1 mg/dL (8.5-10.3); CREATININE 1.1 mg/dL (0.6-1.2); TOTAL PROTEIN 7.2 g/dL (6.7-8.2)
[2019-08-02 05:47] LABS: BILIRUBIN,URINE NEGATIVE (NEGATIVE); GLUCOSE, URINE (UA) NEGATIVE (NEGATIVE); KETONES,URINE (UA) NEGATIVE (NEGATIVE); LEUKOCYTE ESTERASE, URINE NEGATIVE (NEGATIVE); NITRITE,URINE NEGATIVE (NEGATIVE); OCCULT BLOOD,URINE NEGATIVE (NEGATIVE); PROTEIN,URINE NEGATIVE (NEGATIVE); UROBILINOGEN,URINE 0.2 (NORMAL) E.U./dL (NORMAL)
--- NOTE | 2019-08-02 05:52 | ED Physician Documentation ---
PD HPI CHEST PAIN - Stated complaint Stated Complaint: CP - Chief complaint Chief Complaint: Cardiac - History obtained from History obtained from: Patient, EMS - History of Present Illness Timing - onset: Enter time (0100) Timing - onset during: Rest Timing - duration: Hours Timing - details: Gradual onset, Still present Quality: Sharp, Pain Location: Left chest Radiation: No: Jaw, Neck, Back, Abdominal, Left upper extremity, Right upper ex tremity Improved by: Rest Worsened by: Inspiration, Palpation Associated symptoms: No: Shortness of air, Diaphoresis, Nausea, Vomiting, Feeling faint / dizzy, General Weakness, Palpitations, Cough Similar symptoms before: Diagnosis (GERD and angina) Recently seen: Not recently seen - Additional information Additional information: 88-year-old male developed substernal left-sided chest at approximately 1 AM this morning and this is worse with inspiration is about a 7 out of 10 on a scale 1-10. He has had some chills and an increase in his usual cough over the past 2 days. Review of Systems Constitutional: reports: Fever, Chills Eyes: denies: Decreased vision Ears: denies: Ear pain Nose: reports: Congestion. denies: Rhinorrhea / runny nose Throat: denies: Sore throat Cardiac: reports: Chest pain / pressure. denies: Palpitations, Pedal edema, Calf pain Respiratory: reports: Cough. denies: Dyspnea GI: denies: Nausea, Vomiting : reports: Dysuria, Frequency PD PAST MEDICAL HISTORY - Past Medical History Past Medical History: Yes Cardiovascular: Hypertension, High cholesterol, Coronary artery disease, Atrial fibrillation, Arrhythmia Respiratory: Sleep apnea, CPAP use Neuro: None Endocrine/Autoimmune: None GI: GERD, Hiatal hernia, Diverticulitis : Kidney stones HEENT: None Psych: None Musculoskeletal: Osteoarthritis, Fatigue, Other Derm: Other - Past Surgical History Past Surgical History: Yes General: Colonoscopy, EGD Ortho: Other Cardiovascular: CABG, Coronary stent HEENT: Cataracts, Tonsil/Adenoidectomy - Present Medications Home Medications: Ambulatory Orders Medication Instructions Recorded Confirmed Latanoprost 0.005% Ophth Drops 1 drops RIGHTEYE QPM 12/27/12 08/02/19 [Xalatan] Magnesium 500 mg PO DAILY 12/27/12 08/02/19 Nitroglycerin [Nitrostat] 0.4 mg SL Q5M PRN 12/27/12 08/02/19 [place]-3 Fatty Acids/Fish Oil [Fish 500 mg PO BID 12/27/12 08/02/19 Oil 1,000 mg Capsule] Cyanocobalamin (Vitamin B-12) 1,000 mcg PO DAILY 06/16/15 08/02/19 [Cyanocobalamin Injection] Metoprolol Succinate 50 mg PO DAILY 11/09/17 08/02/19 Aspirin [Aspirin EC] 81 mg PO DAILY 11/10/17 08/02/19 Betaxolol HCl [Betaxolol HCl 0.5%] 1 drops EACHEYE BID 11/10/17 08/02/19 Calcium Carbonate [Tums (Calcium 500 mg PO PRN PRN 11/10/17 08/02/19 Carbonate 500mg)] Cholecalciferol (Vitamin D3) 2,000 units PO DAILY 11/10/17 08/02/19 [Vitamin D3] Isosorbide Mononitrate [Isosorbide 60 mg PO DAILY 11/10/17 08/02/19 Mononitrate ER] Vit A/Vit C/Vit E/Zinc/Copper 2 cap PO QDDINNER 11/10/17 08/02/19 [Preservision Areds Softgel] Clopidogrel [Plavix] 75 mg PO DAILY 06/06/18 08/02/19 Acetaminophen [Tylenol] 650 mg PO DAILY 08/02/19 08/02/19 Azithromycin [Zithromax] 250 mg PO DAILY #4 tablet 08/02/19 Ezetimibe 10 mg PO DAILY 08/02/19 08/02/19 Isosorbide Mononitrate [Isosorbide 60 mg PO DAILY 08/02/19 08/02/19 Mononitrate ER] - Allergies Allergies/Adverse Reactions: Allergies Allergy/AdvReac Type Severity Reaction Status Date / Time Sulfa (Sulfonamide Allergy Intermediate Hives Verified 08/02/19 04:47 Antibiotics) lansoprazole [From Prevacid] Allergy Mild Diarrhea Verified 08/02/19 04:47 Jgfhqiw-Trl-Uim Reductase Allergy Mild Indigestion/Chest Verified 08/02/19 04:47 Inhibitor pain tetracycline [Tetracycline] Allergy Mild Unknown Verified 08/02/19 04:47 acetaminophen [From Tylenol] AdvReac Mild Irreg. Verified 08/02/19 04:47 heart rate diphenhydramine HCl * AdvReac Mild A-fib Verified 08/02/19 04:47 [From Benadryl] amlodipine AdvReac Rash Verified 08/02/19 04:47 gluten AdvReac Cramps Verified 08/02/19 04:47 ibuprofen [From Advil] AdvReac Rash Verified 08/02/19 04:47 tree nuts Allergy Mild Unknown Uncoded 08/02/19 04:47 eggs AdvReac Mild Indigestion Uncoded 08/02/19 04:47 oats AdvReac Mild Indigestion Uncoded 08/02/19 04:47 - Social History Does the pt smoke?: No Smoking Status: Never smoker Does the pt drink ETOH?: Yes Does the pt have substance abuse?: No - Immunizations Immunizations are current?: Yes - POLST Patient has POLST: No PD ED PE NORMAL - Vitals Vital signs reviewed: Yes (hypertensive ) - General General: Alert and oriented X 3, No acute distress, Well developed/nourished - HEENT HEENT: Atraumatic, PERRL, EOMI - Neck Neck: Supple, no meningeal sign, No bony TTP - Cardiac Cardiac: RRR, No murmur - Respiratory Respiratory: No respiratory distress, Clear bilaterally, Other (There is pain to palpation of the anterior chest wall over the left anterior chest and this reproduces the pain the patient is experiencing. ) - Abdomen Abdomen: Soft, Non tender - Back Back: No CVA TTP, No spinal TTP - Derm Derm: Normal color, Warm and dry, No rash - Extremities Extremities: No deformity, No edema, No calf tenderness / cord - Neuro Neuro: Alert and oriented X 3, border machine operator 2-12 intact, No motor deficit, No sensory deficit, Normal speech Eye Opening: Spontaneous Motor: Obeys Commands Verbal: Oriented GCS Score: 15 - Psych Psych: Normal mood, Normal affect Results - Vitals Vitals: Vital Signs - 24 hr 08/02/19 08/02/19 08/02/19 04:43 05:06 06:41 Temperature 37.0 C 36.8 C Heart Rate 87 82 76 Respiratory 16 18 14 Rate Blood Pressure 155/83 H 151/63 H 141/67 H Blood Pressure 155/83 H [Left] Blood Pressure 151/63 H [Right] O2 Saturation 96 96 98 08/02/19 07:18 Temperature Heart Rate 73 Respiratory 18 Rate Blood Pressure 129/55 L Blood Pressure [Left] Blood Pressure [Right] O2 Saturation 97 Oxygen O2 Source Room air - EKG (time done) 0443 Rate: Rate (enter#) (86) Rhythm: NSR Ischemia: Normal ST segments Compare to prior EKG: Unchanged from prior EKG (SPT 02-14-2019 no changes ) - Labs Labs: Laboratory Tests 08/02/19 08/02/19 08/02/19 05:05 05:05 05:05 WBC 5.4 RBC 3.85 L Hgb 11.7 L Hct 35.2 L MCV 91.4 MCH 30.4 MCHC 33.2 RDW 12.9 Plt Count 248 MPV 8.6 Neut # (Auto) 2.8 Lymph # (Auto) 1.1 L [place] # (Auto) 1.3 H Eos # (Auto) 0.1 Baso # (Auto) 0.0 Absolute Nucleated RBC 0.00 Nucleated RBC % 0.0 Sodium 136 Potassium 4.1 Chloride 99 L Carbon Dioxide 26 Anion Gap 11.0 BUN 17 Creatinine 1.1 Estimated GFR (MDRD) 63 L Glucose 115 H Calcium 9.1 Total Bilirubin 0.5 AST 18 ALT 13 Alkaline Phosphatase 85 Troponin I High Sens 4.3 Total Protein 7.2 Albumin 3.3 Globulin 3.9 Albumin/Globulin Ratio 0.8 L Lipase 35 Urine Color Urine Clarity Urine pH Ur Specific [place] Urine Protein Urine Glucose (UA) Urine Ketones Urine Occult Blood Urine Nitrite Urine Bilirubin Urine Urobilinogen Ur Leukocyte Esterase Ur Microscopic Review Urine Culture Comments 08/02/19 05:39 WBC RBC Hgb Hct MCV MCH MCHC RDW Plt Count MPV Neut # (Auto) Lymph # (Auto) [place] # (Auto) Eos # (Auto) Baso # (Auto) Absolute Nucleated RBC Nucleated RBC % Sodium Potassium Chloride Carbon Dioxide Anion Gap BUN Creatinine Estimated GFR (MDRD) Glucose Calcium Total Bilirubin AST ALT Alkaline Phosphatase Troponin I High Sens Total Protein Albumin Globulin Albumin/Globulin Ratio Lipase Urine Color YELLOW Urine Clarity CLEAR Urine pH 7.0 Ur Specific [place] 1.015 Urine Protein NEGATIVE Urine Glucose (UA) NEGATIVE Urine Ketones NEGATIVE Urine Occult Blood NEGATIVE Urine Nitrite NEGATIVE Urine Bilirubin NEGATIVE Urine Urobilinogen 0.2 (NORMAL) Ur Leukocyte Esterase NEGATIVE Ur Microscopic Review NOT INDICATED Urine Culture Comments NOT INDICATED - Rads (name of study) chest Radiology: Prelim report reviewed (Impression: 1. New bilateral patchy infiltrates with a moderately dense infiltrate in the right upper lobe.), EMP read indepedently, See rad report PD MEDICAL DECISION MAKING - ED course Complexity details: reviewed results, re-evaluated patient, considered differential, d/w patient, d/w family ED course: 88-year-old male with a history of coronary artery disease has come to the emerge department with chest pain that he has had since 1 AM. He has a negative cardiac work-up and his pain is pleuritic in nature and a chest x-ray demonst rates what appears to be infiltrates in the right upper and left lower lobe of his chest. He is administered Toradol 30 mg intravenously and dexamethasone 10 mg intravenously for treatment of pleuritic chest pain. He is also administered Rocephin 1 g intravenously and a azithromycin 500 mg orally. He does have signs and symptoms of pneumonia with chills and fever. Departure - Departure Disposition: 01 Home, Self Care Clinical Impression: Pleuritic chest pain Pneumonia Qualifiers: Pneumonia type: due to unspecified organism Laterality: bilateral Lung location: unspecified part of lung Qualified Code(s): J18.9 - Pneumonia, unspecified organism Instructions: ED Chest Pain Pleurisy, ED Pneumonia Adult Follow-Up: Nick Nova MD [Primary Care Provider] - Prescriptions: Azithromycin [Zithromax] 250 mg PO DAILY #4 tablet
[2019-08-02 06:02] LABS: CLARITY,URINE CLEAR (CLEAR)
--- NOTE | 2019-08-02 06:10 | XRAY Report ---
Reason: left sided chest pain Procedure Date: 08/02/2019 Accession Number: [id number] / [id number] Procedure: XR - Chest 2 View X-Ray CPT Code: 79729 Final Report FULL RESULT: EXAM: CHEST RADIOGRAPHY EXAM DATE: 08/02/2019 05:49 AM. CLINICAL HISTORY: Left sided chest pain. COMPARISON: CHEST 1 VIEW 02/14/2019 7:41 PM. TECHNIQUE: 2 views. FINDINGS: Lungs/Pleura: There is a new local infiltrate in the right upper lobe and there is new patchy interstitial infiltrative changes in the right middle lobe and left lower lobe. There are no pleural effusions. Mediastinum: Heart and mediastinal contours are unremarkable. Other: None. IMPRESSION: 1. New bilateral patchy infiltrates with a moderately dense infiltrate in the right upper lobe. RADIA
[2019-08-02] MEDS ORDERED: DEXAMETHASONE 10 MG/ML VIAL IVP STA (06:25)
[2019-08-02] MEDS ORDERED: KETOROLAC 30 MG/ML VIAL IVP STA (06:25)
[2019-08-02] MEDS ORDERED: AZITHROMYCIN 250 MG TABLET PO STA (06:29)
[2019-08-02] MEDS ORDERED: cefTRIAXone 1 GM in SODIUM CHLORIDE 0.9% MINIBAG 100 ML IV STA (06:29)
[2019-08-02 07:20] VITALS: BP 129/55
== END 2019-08-02 07:50 | disposition home or self-care (01) ==
LOC: EDUNIT# → ED 04:42
DX: J18.9 Pneumonia, unspecified organism (principal); R07.81 Pleurodynia; I10 Essential (primary) hypertension
CPT/HCPCS: 36415; 71046; 80053; 81003; 83690; 84484; 85025; 93005; 96365; 96375; 99284; A9270; 81001; 87086

== ENCOUNTER 2019-08-10 09:41 | Emergency (ER) | payer MEDICARE, OTHER ==
[2019-08-10 09:51] VITALS: BP 151/69
[2019-08-10 10:09] LABS: BASOPHILS % (AUTO) 0.5 %; EOSINOPHILS # (AUTO) 0.1 10^3/uL (0.0-0.7); EOSINOPHILS % (AUTO) 2.2 %; HGB - HEMOGLOBIN 12.2 g/dL (14.0-18.0); LYMPHOCYTES # (AUTO) 1.6 10^3/uL (1.5-3.5); LYMPHOCYTES % (AUTO) 28.5 %; MEAN CORPUSCULAR HEMOGLOBIN 30.4 pg (27.0-31.0); MEAN CORPUSCULAR HGB CONC 32.9 g/dL (32.0-36.0); MEAN CORPUSCULAR VOLUME 92.5 fL (80.0-94.0); MEAN PLATELET VOLUME 8.8 fL (7.4-11.4); MONOCYTES # (AUTO) 1.3 10^3/uL (0.0-1.0); MONOCYTES % (AUTO) 23.5 %; NEUTROPHILS # (AUTO) 2.5 10^3/uL (1.5-6.6); NEUTROPHILS % (AUTO) 44.9 %; PLT - PLATELET COUNT 245 10^3/uL (130-450); RED BLOOD COUNT 4.01 10^6/uL (4.70-6.10); RED CELL DISTRIBUTION WIDTH 12.8 % (12.0-15.0); WHITE BLOOD COUNT 5.6 x10^3/uL (4.8-10.8)
[2019-08-10 10:26] LABS: ALBUMIN 3.4 g/dL (3.2-5.5); ALBUMIN/GLOBULIN RATIO 0.8 (1.0-2.2); BILIRUBIN,TOTAL 0.6 mg/dL (0.2-1.0); CALCIUM 8.9 mg/dL (8.5-10.3); TOTAL PROTEIN 7.7 g/dL (6.7-8.2)
--- NOTE | 2019-08-10 10:26 | ED Physician Documentation ---
PD HPI CHEST PAIN - Stated complaint Stated Complaint: CHEST PX - Chief complaint Chief Complaint: Cardiac - History obtained from History obtained from: Patient, Family - History of Present Illness Timing - onset: Today Timing - onset during: Rest Timing - duration: Hours Timing - details: Gradual onset, Still present Quality: Sharp, Pain Location: Left chest Radiation: Back Improved by: Rest Worsened by: Inspiration, Palpation Associated symptoms: Cough. No: Shortness of air, Diaphoresis, Nausea, Vomiting, Feeling faint / dizzy, General Weakness, Palpitations Similar symptoms before: Diagnosis (pneumonia) Recently seen: Clinic, Emergency Dept - Additional information Additional information: 88-year-old male seen 8 days ago in the emergency department for chest pain has a history of coronary artery disease and his chest pain 8 days ago was pleuritic in nature and he had infiltrate on his chest x-ray. He states that his symptoms improved while he was here in the emergency department and he felt improved until this morning. He states he went into see his primary in follow-up yesterday his symptoms at that time were improved and he is now developed symptoms again. He does not have much in the way of a cough he does not feel particularly ill. He does not think this is a coronary syndrome. Review of Systems Constitutional: reports: Fatigue. denies: Fever Eyes: denies: Decreased vision Ears: denies: Ear pain Nose: denies: Rhinorrhea / runny nose, Congestion Throat: denies: Sore throat Cardiac: reports: Chest pain / pressure. denies: Palpitations, Pedal edema, Calf pain Respiratory: reports: Cough. denies: Dyspnea GI: denies: Abdominal Pain, Nausea, Vomiting : denies: Dysuria, Frequency PD PAST MEDICAL HISTORY - Past Medical History Cardiovascular: Hypertension, High cholesterol, Coronary artery disease, Atrial fibrillation, Arrhythmia Respiratory: Sleep apnea, CPAP use Neuro: None Endocrine/Autoimmune: None GI: GERD, Hiatal hernia, Diverticulitis : Kidney stones HEENT: None Psych: None Musculoskeletal: Osteoarthritis, Fatigue, Other Derm: Other - Past Surgical History Past Surgical History: Yes General: Colonoscopy, EGD Ortho: Other Cardiovascular: CABG, Coronary stent HEENT: Cataracts, Tonsil/Adenoidectomy - Present Medications Home Medications: Ambulatory Orders Medication Instructions Recorded Confirmed Latanoprost 0.005% Ophth Drops 1 drops RIGHTEYE QPM 12/27/12 08/02/19 [Xalatan] Magnesium 500 mg PO DAILY 12/27/12 08/02/19 Nitroglycerin [Nitrostat] 0.4 mg SL Q5M PRN 12/27/12 08/02/19 [place]-3 Fatty Acids/Fish Oil [Fish 500 mg PO BID 12/27/12 08/02/19 Oil 1,000 mg Capsule] Cyanocobalamin (Vitamin B-12) 1,000 mcg PO DAILY 06/16/15 08/02/19 [Cyanocobalamin Injection] Metoprolol Succinate 50 mg PO DAILY 11/09/17 08/02/19 Aspirin [Aspirin EC] 81 mg PO DAILY 11/10/17 08/02/19 Betaxolol HCl [Betaxolol HCl 0.5%] 1 drops EACHEYE BID 11/10/17 08/02/19 Calcium Carbonate [Tums (Calcium 500 mg PO PRN PRN 11/10/17 08/02/19 Carbonate 500mg)] Cholecalciferol (Vitamin D3) 2,000 units PO DAILY 11/10/17 08/02/19 [Vitamin D3] Vit A/Vit C/Vit E/Zinc/Copper 2 cap PO QDDINNER 11/10/17 08/02/19 [Preservision Areds Softgel] Clopidogrel [Plavix] 75 mg PO DAILY 06/06/18 08/02/19 Acetaminophen [Tylenol] 650 mg PO DAILY 08/02/19 08/02/19 Ezetimibe 10 mg PO DAILY 08/02/19 08/02/19 Isosorbide Mononitrate [Isosorbide 60 mg PO DAILY 08/02/19 08/02/19 Mononitrate ER] Cefdinir 300 mg PO BID #20 capsule 08/10/19 - Allergies Allergies/Adverse Reactions: Allergies Allergy/AdvReac Type Severity Reaction Status Date / Time Sulfa (Sulfonamide Allergy Intermediate Hives Verified 08/10/19 09:51 Antibiotics) lansoprazole [From Prevacid] Allergy Mild Diarrhea Verified 08/10/19 09:51 Ycrrvss-Yzx-Uwv Reductase Allergy Mild Indigestion/Chest Verified 08/10/19 09:51 Inhibitor pain tetracycline [Tetracycline] Allergy Mild Unknown Verified 08/10/19 09:51 acetaminophen [From Tylenol] AdvReac Mild Irreg. Verified 08/10/19 09:51 heart rate diphenhydramine HCl * AdvReac Mild A-fib Verified 08/10/19 09:51 [From Benadryl] amlodipine AdvReac Rash Verified 08/10/19 09:51 gluten AdvReac Cramps Verified 08/10/19 09:51 ibuprofen [From Advil] AdvReac Rash Verified 08/10/19 09:51 tree nuts Allergy Mild Unknown Uncoded 08/10/19 09:51 eggs AdvReac Mild Indigestion Uncoded 08/10/19 09:51 oats AdvReac Mild Indigestion Uncoded 08/10/19 09:51 - Social History Does the pt smoke?: No Smoking Status: Never smoker Does the pt drink ETOH?: Yes Does the pt have substance abuse?: No - Immunizations Immunizations are current?: Yes - POLST Patient has POLST: No PD ED PE NORMAL - Vitals Vital signs reviewed: Yes (hypertensive ) - General General: No acute distress, Well developed/nourished - HEENT HEENT: Atraumatic, PERRL, EOMI - Neck Neck: Supple, no meningeal sign, No bony TTP - Cardiac Cardiac: RRR, No murmur - Respiratory Respiratory: No respiratory distress, Other (rhonchi on left anteriorly only. There is mild chest wall tenderness as well. ) - Abdomen Abdomen: Soft, Non tender - Back Back: No CVA TTP, No spinal TTP - Derm Derm: Normal color, Warm and dry, No rash - Extremities Extremities: No deformity, No edema - Neuro Neuro: Alert and oriented X 3, nursing department chairperson 2-12 intact, No motor deficit, No sensory deficit Eye Opening: Spontaneous Motor: Obeys Commands Verbal: Oriented GCS Score: 15 - Psych Psych: Normal mood, Normal affect Results - Vitals Vitals: Vital Signs - 24 hr 08/10/19 09:49 Temperature 36.8 C Heart Rate 83 Respiratory 18 Rate Blood Pressure 151/69 H O2 Saturation 99 Oxygen O2 Source Room air - EKG (time done) 0948 Rate: Rate (enter#) (82) Rhythm: NSR Ischemia: Normal ST segments Computer interpretation: Agree with computer - Labs Labs: Laboratory Tests 08/10/19 08/10/19 08/10/19 09:56 09:56 09:56 WBC 5.6 RBC 4.01 L Hgb 12.2 L Hct 37.1 L MCV 92.5 MCH 30.4 MCHC 32.9 RDW 12.8 Plt Count 245 MPV 8.8 Neut # (Auto) 2.5 Lymph # (Auto) 1.6 [place] # (Auto) 1.3 H Eos # (Auto) 0.1 Baso # (Auto) 0.0 Absolute Nucleated RBC 0.00 Nucleated RBC % 0.0 Sodium 134 L Potassium 3.7 Chloride 98 L Carbon Dioxide 25 Anion Gap 11.0 BUN 17 Creatinine 1.0 Estimated GFR (MDRD) 71 L Glucose 111 H Calcium 8.9 Total Bilirubin 0.6 AST 22 ALT 18 Alkaline Phosphatase 86 Troponin I High Sens 3.1 Total Protein 7.7 Albumin 3.4 Globulin 4.3 H Albumin/Globulin Ratio 0.8 L Lipase 38 - Rads (name of study) chest 2 view Radiology: Prelim report reviewed (Impression: 1. Patchy predominantly wispy airspace opacities in both lungs greatest in the right upper lobe, unchanged, possibly representing areas of pneumonitis or scarring. No new airspace opacities. No pneumothorax or pleural fluid on the left.), EMP read indepedently, See rad report PD MEDICAL DECISION MAKING - ED course Complexity details: reviewed old records, reviewed results, re-evaluated patient, considered differential, d/w patient, d/w family ED course: 88-year-old male with a recent history of pneumonia has developed pleuritic chest pain again and he has completed his treatment previously. His chest x-ray appears to have some increased density in the left but otherwise appears not much change from prior. We will retreat the patient and change his antibiotic today to Cedinir. Departure - Departure Disposition: 01 Home, Self Care Clinical Impression: Pleuritic chest pain Pneumonia Qualifiers: Pneumonia type: due to unspecified organism Laterality: unspecified laterality Lung location: unspecified part of lung Qualified Code(s): J18.9 - Pneumonia, unspecified organism Condition: Stable Instructions: ED Pneumonia Adult Follow-Up: Nick Nova MD [Primary Care Provider] - Prescriptions: Cefdinir 300 mg PO BID #20 capsule
[2019-08-10] MEDS ORDERED: KETOROLAC 30 MG/ML VIAL IVP STA (10:35)
[2019-08-10] MEDS ORDERED: cefTRIAXone 1 GM in SODIUM CHLORIDE 0.9% MINIBAG 100 ML IV STA (10:35)
[2019-08-10] MEDS ORDERED: DEXAMETHASONE 10 MG/ML VIAL PO STA (10:35)
[2019-08-10] MEDS ORDERED: CHERRY SYRUP 10 ML UDC PO ONE (10:35)
--- NOTE | 2019-08-10 10:54 | XRAY Report ---
Reason: pleuritic L sided pain Procedure Date: 08/10/2019 Accession Number: [id number] / [id number] Procedure: XR - Chest 2 View X-Ray CPT Code: 06807 Final Report FULL RESULT: EXAM: CHEST RADIOGRAPHY EXAM DATE: 08/10/2019 10:15 AM. CLINICAL HISTORY: Pleuritic L sided pain. COMPARISON: CHEST 2 VIEW 08/02/2019 5:49 AM. TECHNIQUE: 2 views. FINDINGS: Lungs/Pleura: Mild consolidation laterally in the right upper lobe just above the minor fissure, as before. Mild wispy opacity in the lower right lung just below the minor fissure, the lateral left upper lobe, and lingula, as before. No new airspace opacities. No pneumothorax or pleural effusion. Mediastinum: Heart and mediastinal contours are unremarkable. Minimal aortic arch calcification. Sternotomy wires, as before. Other: None. IMPRESSION: 1. Patchy predominately wispy airspace opacities in both lungs greatest in the right upper lobe, unchanged, possibly representing areas of pneumonitis or scarring. No new airspace opacities. 2. No pneumothorax or pleural fluid on the left. RADIA
== END 2019-08-10 11:48 | disposition home or self-care (01) ==
LOC: ED 09:41
DX: J18.9 Pneumonia, unspecified organism (principal); R07.81 Pleurodynia; I10 Essential (primary) hypertension; I25.10 Atherosclerotic heart disease of native coronary artery without angina pectoris; Z95.5 Presence of coronary angioplasty implant and graft; Z95.1 Presence of aortocoronary bypass graft; Z79.02 Long term (current) use of antithrombotics/antiplatelets; Z79.82 Long term (current) use of aspirin
CPT/HCPCS: 36415; 71046; 80053; 83690; 84484; 85025; 93005; 96365; 96375; 99284; A9270

== ENCOUNTER 2019-09-10 12:37 | Emergency (ER) | payer MEDICARE, OTHER ==
[2019-09-10 13:49] LABS: BASOPHILS % (AUTO) 0.8 %; EOSINOPHILS # (AUTO) 0.1 10^3/uL (0.0-0.7); EOSINOPHILS % (AUTO) 2.3 %; HGB - HEMOGLOBIN 11.3 g/dL (14.0-18.0); LYMPHOCYTES # (AUTO) 1.8 10^3/uL (1.5-3.5); LYMPHOCYTES % (AUTO) 34.9 %; MEAN CORPUSCULAR HEMOGLOBIN 29.1 pg (27.0-31.0); MEAN CORPUSCULAR HGB CONC 31.7 g/dL (32.0-36.0); MEAN PLATELET VOLUME 8.7 fL (7.4-11.4); MONOCYTES # (AUTO) 1.4 10^3/uL (0.0-1.0); MONOCYTES % (AUTO) 26.6 %; NEUTROPHILS # (AUTO) 1.8 10^3/uL (1.5-6.6); NEUTROPHILS % (AUTO) 34.8 %; PLT - PLATELET COUNT 263 10^3/uL (130-450); RED BLOOD COUNT 3.88 10^6/uL (4.70-6.10); RED CELL DISTRIBUTION WIDTH 13.5 % (12.0-15.0); WHITE BLOOD COUNT 5.2 x10^3/uL (4.8-10.8)
[2019-09-10 14:01] LABS: ALBUMIN 3.4 g/dL (3.2-5.5); ALBUMIN/GLOBULIN RATIO 0.9 (1.0-2.2); BILIRUBIN,TOTAL 0.6 mg/dL (0.2-1.0); CALCIUM 9.3 mg/dL (8.5-10.3); CREATININE 1.1 mg/dL (0.6-1.2); TOTAL PROTEIN 7.4 g/dL (6.7-8.2)
--- NOTE | 2019-09-10 14:28 | XRAY Report ---
Reason: cough Procedure Date: 09/10/2019 Accession Number: [id number] / [id number] Procedure: XR - Chest 2 View X-Ray CPT Code: 18288 Final Report FULL RESULT: EXAM: CHEST RADIOGRAPHY EXAM DATE: 09/10/2019 02:08 PM. CLINICAL HISTORY: Cough. COMPARISON: CHEST 2 VIEW 08/10/2019 10:03 AM CHEST 1 VIEW 02/14/2019 7:41 PM CHEST 2 VIEW 08/02/2019 5:49 AM. TECHNIQUE: 2 views. FINDINGS: Lungs/Pleura: There are bilateral patchy airspace densities. The opacity is most focal in the right upper lobe and right midlung. There are reticulonodular opacities in the left lung which appear without interval change. The right lung density is new since 02/14/2019. Mediastinum: Heart size is normal. Previous median sternotomy is noted. There is mild aortic atherosclerotic calcification. Other: None. IMPRESSION: 1. No change, right lung airspace opacity since 08/10/2019. Possible pneumonia, bronchiolitis obliterans organizing pneumonia, and/or atelectasis. RADIA
--- NOTE | 2019-09-10 15:33 | ED Physician Documentation ---
History of Present Illness - Stated complaint Stated Complaint: COUGH/CHILLS - Chief complaint Chief Complaint: Resp - Additonal information Additional information: This is an 88-year-old male with a history of past smoking, prostate cancer in remission, who presents with cough and low-grade fever. Patient states he had a cough which is largely nonproductive, as well as in the morning he has felt a little bit chilled, and has had a temperature of 99.4 F. He has had pneumonia in the past, though this does not feel as bad as that. His was coming in because she was feeling poorly so he came with her and decided to check in as we ll. He denies any hemoptysis, no chest pain, no leg swelling. Most bothersome to him he feels he has an irritating cough. His breathing feels otherwise fine. No dysuria. no hemoptysis. Review of Systems Constitutional: denies: Fever Cardiac: denies: Chest pain / pressure Respiratory: reports: Cough. denies: Dyspnea GI: denies: Abdominal Pain, Nausea : denies: Dysuria Neurologic: denies: Generalized weakness PD PAST MEDICAL HISTORY - Past Medical History Cardiovascular: Hypertension, High cholesterol, Coronary artery disease, Atrial fibrillation, Arrhythmia Respiratory: Sleep apnea, CPAP use Neuro: None Endocrine/Autoimmune: None GI: GERD, Hiatal hernia, Diverticulitis : Kidney stones HEENT: None Psych: None Musculoskeletal: Osteoarthritis, Fatigue, Other Derm: Other - Past Surgical History Past Surgical History: Yes General: Colonoscopy, EGD Ortho: Other Cardiovascular: CABG, Coronary stent HEENT: Cataracts, Tonsil/Adenoidectomy - Present Medications Home Medications: Ambulatory Orders Medication Instructions Recorded Confirmed Latanoprost 0.005% Ophth Drops 1 drops RIGHTEYE QPM 12/27/12 08/02/19 [Xalatan] Magnesium 500 mg PO DAILY 12/27/12 08/02/19 Nitroglycerin [Nitrostat] 0.4 mg SL Q5M PRN 12/27/12 08/02/19 [place]-3 Fatty Acids/Fish Oil [Fish 500 mg PO BID 12/27/12 08/02/19 Oil 1,000 mg Capsule] Cyanocobalamin (Vitamin B-12) 1,000 mcg PO DAILY 06/16/15 08/02/19 [Cyanocobalamin Injection] Metoprolol Succinate 50 mg PO DAILY 11/09/17 08/02/19 Aspirin [Aspirin EC] 81 mg PO DAILY 11/10/17 08/02/19 Betaxolol HCl [Betaxolol HCl 0.5%] 1 drops EACHEYE BID 11/10/17 08/02/19 Calcium Carbonate [Tums (Calcium 500 mg PO PRN PRN 11/10/17 08/02/19 Carbonate 500mg)] Cholecalciferol (Vitamin D3) 2,000 units PO DAILY 11/10/17 08/02/19 [Vitamin D3] Vit A/Vit C/Vit E/Zinc/Copper 2 cap PO QDDINNER 11/10/17 08/02/19 [Preservision Areds Softgel] Clopidogrel [Plavix] 75 mg PO DAILY 06/06/18 08/02/19 Acetaminophen [Tylenol] 650 mg PO DAILY 08/02/19 08/02/19 Ezetimibe 10 mg PO DAILY 08/02/19 08/02/19 Isosorbide Mononitrate [Isosorbide 60 mg PO DAILY 08/02/19 08/02/19 Mononitrate ER] Cefdinir 300 mg PO BID #20 capsule 08/10/19 Benzonatate [Tessalon Perle] 100 - 200 mg PO TID PRN #30 capsule 09/10/19 - Allergies Allergies/Adverse Reactions: Allergies Allergy/AdvReac Type Severity Reaction Status Date / Time Sulfa (Sulfonamide Allergy Intermediate Hives Verified 09/10/19 13:07 Antibiotics) lansoprazole [From Prevacid] Allergy Mild Diarrhea Verified 09/10/19 13:07 Miipcyx-Kqq-Fum Reductase Allergy Mild Indigestion/Chest Verified 09/10/19 13:07 Inhibitor pain tetracycline [Tetracycline] Allergy Mild Unknown Verified 09/10/19 13:07 acetaminophen [From Tylenol] AdvReac Mild Irreg. Verified 09/10/19 13:07 heart rate diphenhydramine HCl * AdvReac Mild A-fib Verified 09/10/19 13:07 [From Benadryl] amlodipine AdvReac Rash Verified 09/10/19 13:07 gluten AdvReac Cramps Verified 09/10/19 13:07 ibuprofen [From Advil] AdvReac Rash Verified 09/10/19 13:07 tree nuts Allergy Mild Unknown Uncoded 09/10/19 13:07 eggs AdvReac Mild Indigestion Uncoded 09/10/19 13:07 oats AdvReac Mild Indigestion Uncoded 09/10/19 13:07 - Social History Does the pt smoke?: No Smoking Status: Former smoker Does the pt drink ETOH?: Yes Does the pt have substance abuse?: No - Immunizations Immunizations are current?: Yes - POLST Patient has POLST: No PD ED PE NORMAL - Vitals Vital signs reviewed: Yes - General General: Alert and oriented X 3, No acute distress - HEENT HEENT: PERRL - Neck Neck: Supple, no meningeal sign - Cardiac Cardiac: RRR - Respiratory Respiratory: No respiratory distress, Clear bilaterally - Abdomen Abdomen: Soft, Non tender, Non distended - Derm Derm: Warm and dry - Extremities Extremities: No deformity, No edema - Neuro Neuro: Alert and oriented X 3, 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6 AST 21 ALT 15 Alkaline Phosphatase 87 Total Protein 7.4 Albumin 3.4 Globulin 4.0 Albumin/Globulin Ratio 0.9 L Lipase 36 - Rads (name of study) CXR Radiology: Other (Patchy airspace densities, possible pneumonia and/or atelectasis) PD MEDICAL DECISION MAKING - ED course Complexity details: considered differential (PNA, COPD exacerbation, bronchitis, URI, post-viral cough, lung mass) ED course: Patient is very well-appearing on examination, is afebrile, oxygen saturation is excellent at 100% on room air, he has no increased work of breathing, no tachypnea, his lungs are clear, and his pulse is normal. He is able to ambulate without symptoms. He has had a cough for several weeks and feeling of some irritation in his throat. X-ray shows stable infiltrates/opacities from his past x-ray, without new infiltrate. He does not have a productive cough, has n ot had fever, and his oxygen saturation is normal, I do not think he has a bacterial pneumonia at this time. However he does have some ongoing lung abnormalities, and I discussed with him that he should follow-up with primary care provider promptly to discuss CT scan to better characterize his lung abnormalities. Given how well-appearing he is at this time, I do not think this has to happen emergently. No signs of PE, he has no chest pain, normal oxygen saturation, no leg swelling. No signs of heart failure. He has absolutely no chest pain or shortness of breath, no signs of ACS. I discussed supportive care, return precautions with any worsening or symptoms such as chest pain or shortness of breath, fever 100.4F or greater, or hemoptysis, and discharged him with Tessalon Perles. Departure - Departure Disposition: 01 Home, Self Care Clinical Impression: Cough Condition: Good Follow-Up: Nick Nova MD [Primary Care Provider] - Within 1 week Prescriptions: Benzonatate [Tessalon Perle] 100 - 200 mg PO TID PRN #30 capsule PRN Reason: Cough Comments: You were seen today for cough. Your chest x-ray has not changed from your previous chest x-ray. You may have a bit of a post viral cough, or some bronchitis but I do not see signs of a bacterial infection at this time. You do have some abnormalities on The chest XR that warrant further work-up, please follow up with your primary care provider and they may consider doing a CT scan. you also have a mild anemia which is stable but should be followed up with your primary care provider. If you are having cough with blood, shortness of breath, chest pain, or other concerning symptoms return to the emergency department. Discharge Date/Time: 09/10/19 16:10
[2019-09-10 16:06] VITALS: BP 140/71
== END 2019-09-10 16:10 | disposition home or self-care (01) ==
LOC: ED 12:37
DX: R05 Cough (principal); R91.8 Other nonspecific abnormal finding of lung field; I10 Essential (primary) hypertension; Z87.891 Personal history of nicotine dependence
CPT/HCPCS: 36415; 71046; 80053; 83690; 85025; 99283; 99284

== ENCOUNTER 2019-09-25 13:19 | Outpatient (CLI) | payer MEDICARE, OTHER ==
[2019-09-25] MEDS ORDERED: IOVERSOL 320 100 ML VIAL IVP ONE ×2 (13:24→15:02)
--- NOTE | 2019-09-26 09:42 | CT Report ---
Reason: COUGH, DYSPNEA, RT LUNG OPACITY ON XR Procedure Date: 09/25/2019 Accession Number: [id number] / [id number] Procedure: CT - CHEST W CPT Code: Final Report FULL RESULT: EXAM: CT CHEST EXAM DATE: 09/25/2019 02:25 PM. CLINICAL HISTORY: Cough, dyspnea, right lung opacity on x-ray. COMPARISONS: None. TECHNIQUE: Routine helical CT imaging was performed through the chest. IV contrast: 80 mL Optiray 320. Reconstructions: Coronal and sagittal. In accordance with CT protocol optimization, one or more of the following dose reduction techniques were utilized for this exam: automated exposure control, adjustment of mA and/or KV based on patient size, or use of iterative reconstructive technique. FINDINGS: Lungs/Pleura: Extensive infiltrates are noted bilaterally. The largest area of consolidation is noted in the right upper lobe of the lung. Mild bronchiectasis is noted. There is no pleural effusion or pneumothorax seen. Mediastinum: There is a precarinal lymph node that measures 1.5 cm in short axis dimension (image 42 of series 3). There is extensive calcified plaque involving the coronary arteries. There is atherosclerosis of the aorta without evidence of aneurysmal dilatation. Bones: There are degenerative changes of the thoracic and lumbar spine. Visualized Abdomen: The visualized upper abdominal organs are without evidence of an enhancing mass. Other: None. IMPRESSION: Nonspecific bilateral infiltrates and mediastinal lymphadenopathy that may be secondary to pneumonia. However, a neoplastic process cannot be excluded. RADIA
== END 2019-09-25 13:20 | disposition home or self-care (01) ==
LOC: DI 13:19
PROVIDERS: ATTEND Physician Assistant Medical
DX: R05 Cough (principal); R06.00 Dyspnea, unspecified; R91.8 Other nonspecific abnormal finding of lung field; R09.89 Other specified symptoms and signs involving the circulatory and respiratory systems; R59.0 Localized enlarged lymph nodes
CPT/HCPCS: 71260; Q9967

== ENCOUNTER 2019-10-04 19:13 | Outpatient (CLI) | payer MEDICARE, OTHER | END 2019-10-04 19:14 | disposition EMS.NT | LOC: EMS 19:13 | PROVIDERS: ATTEND Surgery | DX: R05 Cough (principal) ==

== ENCOUNTER 2019-10-04 20:06 | Inpatient (IN) | payer MEDICARE, OTHER ==
[2019-10-04] MEDS ORDERED: ACETAMINOPHEN 325 MG TABLET PO STA (20:45)
[2019-10-04 21:09] LABS: BASOPHILS % (AUTO) 0.6 %; EOSINOPHILS # (AUTO) 0.1 10^3/uL (0.0-0.7); EOSINOPHILS % (AUTO) 1.5 %; HGB - HEMOGLOBIN 11.9 g/dL (14.0-18.0); MEAN CORPUSCULAR HEMOGLOBIN 30.1 pg (27.0-31.0); MEAN CORPUSCULAR HGB CONC 33.1 g/dL (32.0-36.0); MEAN CORPUSCULAR VOLUME 90.9 fL (80.0-94.0); MEAN PLATELET VOLUME 8.9 fL (7.4-11.4); MONOCYTES # (AUTO) 0.9 10^3/uL (0.0-1.0); MONOCYTES % (AUTO) 13.5 %; NEUTROPHILS # (AUTO) 4.6 10^3/uL (1.5-6.6); NEUTROPHILS % (AUTO) 68.9 %; PLT - PLATELET COUNT 260 10^3/uL (130-450); RED BLOOD COUNT 3.95 10^6/uL (4.70-6.10); RED CELL DISTRIBUTION WIDTH 13.6 % (12.0-15.0); WHITE BLOOD COUNT 6.6 x10^3/uL (4.8-10.8)
[2019-10-04 21:21] LABS: ALBUMIN 3.5 g/dL (3.2-5.5); ALBUMIN/GLOBULIN RATIO 0.9 (1.0-2.2); BILIRUBIN,TOTAL 0.5 mg/dL (0.2-1.0); CALCIUM 8.6 mg/dL (8.5-10.3); CREATININE 1.2 mg/dL (0.6-1.2); TOTAL PROTEIN 7.6 g/dL (6.7-8.2)
[2019-10-04 21:46] LABS: BILIRUBIN,URINE NEGATIVE (NEGATIVE); GLUCOSE, URINE (UA) NEGATIVE (NEGATIVE); KETONES,URINE (UA) NEGATIVE (NEGATIVE); LEUKOCYTE ESTERASE, URINE NEGATIVE (NEGATIVE); NITRITE,URINE NEGATIVE (NEGATIVE); OCCULT BLOOD,URINE NEGATIVE (NEGATIVE); PROTEIN,URINE NEGATIVE (NEGATIVE); UROBILINOGEN,URINE 0.2 (NORMAL) E.U./dL (NORMAL)
[2019-10-04 21:48] LABS: CLARITY,URINE CLEAR (CLEAR)
--- NOTE | 2019-10-04 21:53 | XRAY Report ---
Reason: fever Procedure Date: 10/04/2019 Accession Number: [id number] / [id number] Procedure: XR - Chest 2 View X-Ray CPT Code: 96392 Final Report FULL RESULT: EXAM: CHEST RADIOGRAPHY EXAM DATE: 10/04/2019 09:42 PM. CLINICAL HISTORY: Fever. COMPARISON: CHEST 2 VIEW 09/10/2019 2:04 PM CHEST W/ 09/25/2019 2:17 PM. TECHNIQUE: 2 views. FINDINGS: Lungs/Pleura: Slightly increased patchy and nodular opacities in the bilateral lungs compared to 09/10/2019. No pleural effusion or pneumothorax. Mediastinum: Heart and mediastinal contours are unremarkable. Stable sternotomy changes. Other: Stable osseous structures. IMPRESSION: Increased patchy and nodular opacities in the lungs compared to prior CXR. Findings are suspicious for pneumonia although other etiologies including neoplastic/metastatic process cannot be excluded. Recommend clinical correlation and follow-up to resolution. RADIA
--- NOTE | 2019-10-04 21:59 | ED Physician Documentation ---
History of Present Illness - Stated complaint Stated Complaint: CHILL/FEVER/COUGH - Chief complaint Chief Complaint: Fever - History obtained from History obtained from: Patient, Family - History of Present Illness Timing: Enter time (16:00) Pain level max: 0 Pain level now: 0 Improved by: no ameliorating factors Worsened by: no exacerbating factors Associated symptoms: cough, dyspnea - Additonal information Additional information: c/o shaking, rigorous chills since 4 PM. He has had coughing and dyspnea since July although he says neither of these symptoms have worsened recently. He was diagnosed with pneumonia in this ED 08/02 and rx zithromax, returned the following week due to persistent symptoms and rx cefdinir (significantly abnormal CXR on both of these visits). He was again evaluated in this ED last month due to persistent symptoms, no antibiotic prescribed at that time. He followed up with PMD and had outpatient chest CT which again showed significant bilateral infiltrates. Review of Systems Constitutional: reports: Fever, Chills. denies: Sweats Ears: reports: Reviewed and negative Nose: reports: Reviewed and negative Throat: reports: Reviewed and negative Cardiac: reports: Reviewed and negative Respiratory: reports: Dyspnea, Cough. denies: Hemoptysis, Wheezing GI: reports: Reviewed and negative : denies: Dysuria, Frequency Skin: reports: Reviewed and negative Musculoskeletal: reports: Reviewed and negative Neurologic: reports: Reviewed and negative PD PAST MEDICAL HISTORY - Past Medical History Past Medical History: Yes Cardiovascular: Hypertension, High cholesterol, Coronary artery disease, Atrial fibrillation, Arrhythmia Respiratory: Sleep apnea, CPAP use Neuro: None Endocrine/Autoimmune: None GI: GERD, Hiatal hernia, Diverticulitis : Kidney stones HEENT: None Psych: None Musculoskeletal: Osteoarthritis, Fatigue, Other Derm: Other - Past Surgical History Past Surgical History: Yes General: Colonoscopy, EGD Ortho: Other Cardiovascular: CABG, Coronary stent HEENT: Cataracts, Tonsil/Adenoidectomy - Present Medications Home Medications: Ambulatory Orders Medication Instructions Recorded Confirmed Latanoprost 0.005% Ophth Drops 1 drops RIGHTEYE QPM 12/27/12 10/05/19 [Xalatan] Magnesium 500 mg PO QDDINNER 12/27/12 10/05/19 Nitroglycerin [Nitrostat] 0.4 mg SL Q5M PRN 12/27/12 10/05/19 [place]-3 Fatty Acids/Fish Oil [Fish 500 mg PO QDBREAKFAST 12/27/12 10/05/19 Oil 1,000 mg Capsule] Cyanocobalamin (Vitamin B-12) 1,000 mcg IM .TWICE MONTHLY 06/16/15 10/05/19 [Cyanocobalamin Injection] Metoprolol Succinate 50 mg PO DAILY 11/09/17 10/05/19 Aspirin [Aspirin EC] 81 mg PO 1800 11/10/17 10/05/19 Betaxolol HCl [Betaxolol HCl 0.5%] 1 drops EACHEYE BID 11/10/17 10/05/19 Calcium Carbonate [Tums (Calcium 1,000 mg PO PRN PRN 11/10/17 10/05/19 Carbonate 500mg)] Cholecalciferol (Vitamin D3) 2,000 units PO QDDINNER 11/10/17 10/05/19 [Vitamin D3] Vit A/Vit C/Vit E/Zinc/Copper 2 cap PO QDDINNER 11/10/17 10/05/19 [Preservision Areds Softgel] Clopidogrel [Plavix] 75 mg PO DAILY 06/06/18 10/05/19 Acetaminophen [Tylenol] 650 mg PO DAILY 08/02/19 10/05/19 Ezetimibe 10 mg PO DAILY 08/02/19 10/05/19 Calcium Carbonate [Tums (Calcium 1,000 mg PO DAILY 10/05/19 10/05/19 Carbonate 500mg)] Famotidine [Pepcid AC] 10 mg PO BID 10/05/19 10/05/19 Grape Seed Extract [Meganatural-Bp] 250 mg PO QDDINNER 10/05/19 10/05/19 Propylene Glycol/Peg 400 [Systane 1 drops EACHEYE TID PRN 10/05/19 10/05/19 Ultra 0.4-0.3% Eye Drp] Saccharomyces Boulardii [Florastor] 250 mg PO QDBREAKFAST 10/05/19 10/05/19 Vitamin K2 [Menauinone-7] 100 mcg PO QDDINNER 10/05/19 10/05/19 - Allergies Allergies/Adverse Reactions: Allergies Allergy/AdvReac Type Severity Reaction Status Date / Time Sulfa (Sulfonamide Allergy Intermediate Hives Verified 09/10/19 13:07 Antibiotics) lansoprazole [From Prevacid] Allergy Mild Diarrhea Verified 09/10/19 13:07 Nsetpfi-Mia-Hph Reductase Allergy Mild Indigestion/Chest Verified 09/10/19 13:07 Inhibitor pain tetracycline [Tetracycline] Allergy Mild Unknown Verified 09/10/19 13:07 tree nut Allergy Mild Unknown Verified 09/25/19 15:11 diphenhydramine HCl * AdvReac Mild A-fib Verified 09/10/19 13:07 [From Benadryl] egg AdvReac Mild Indigestion Verified 09/25/19 15:11 oats AdvReac Mild Indigestion Verified 09/25/19 15:11 amlodipine AdvReac Rash Verified 09/10/19 13:07 gluten AdvReac Cramps Verified 09/10/19 13:07 ibuprofen [From Advil] AdvReac Rash Verified 09/10/19 13:07 - Social History Does the pt smoke?: No Smoking Status: Never smoker Does the pt drink ETOH?: Yes Does the pt have substance abuse?: No - Immunizations Immunizations are current?: Yes - POLST Patient has POLST: No PD ED PE NORMAL - Vitals Vital signs reviewed: Yes - General General: Alert and oriented X 3, No acute distress, Well developed/nourished - HEENT HEENT: Moist mucous membranes - Neck Neck: Supple, no meningeal sign - Cardiac Cardiac: No murmur - Respiratory Respiratory: No respiratory distress - Abdomen Abdomen: Soft, Non tender - Derm Derm: Normal color, Warm and dry - Extremities Extremities: No edema - Neuro Neuro: Alert and oriented X 3 PD ED PE EXPANDED - Cardiac Cardiac: Tachy, Regular Rhythm - Respiratory Respiratory: Rhonchi Results - Vitals Vitals: Vital Signs - 24 hr 10/04/19 10/04/19 10/04/19 20:25 21:04 21:16 Temperature 39.4 C H 39.6 C H Heart Rate 103 H 98 Respiratory 14 17 Rate Blood Pressure 175/71 H 145/75 H O2 Saturation 97 95 10/04/19 10/04/19 21:40 22:02 Temperature 39.3 C H Heart Rate 97 Respiratory 17 Rate Blood Pressure 153/67 H O2 Saturation 97 Oxygen O2 Source Room air - Labs Labs: Laboratory Tests 10/04/19 10/04/19 10/04/19 19:30 20:30 21:00 WBC 6.6 RBC 3.95 L Hgb 11.9 L Hct 35.9 L MCV 90.9 MCH 30.1 MCHC 33.1 RDW 13.6 Plt Count 260 MPV 8.9 Neut # (Auto) 4.6 Lymph # (Auto) 1.0 L [place] # (Auto) 0.9 Eos # (Auto) 0.1 Baso # (Auto) 0.0 Absolute Nucleated RBC 0.00 Nucleated RBC % 0.0 Sodium Potassium Chloride Carbon Dioxide Anion Gap BUN Creatinine Estimated GFR (MDRD) Glucose Lactic Acid Calcium Total Bilirubin AST ALT Alkaline Phosphatase Total Protein Albumin Globulin Albumin/Globulin Ratio Lipase Urine Color YELLOW Urine Clarity CLEAR Urine pH 8.0 H Ur Specific [place] 1.015 Urine Protein NEGATIVE Urine Glucose (UA) NEGATIVE Urine Ketones NEGATIVE Urine Occult Blood NEGATIVE Urine Nitrite NEGATIVE Urine Bilirubin NEGATIVE Urine Urobilinogen 0.2 (NORMAL) Ur Leukocyte Esterase NEGATIVE Ur Microscopic Review NOT INDICATED Urine Culture Comments NOT INDICATED Influenza A (Rapid) Negative Influenza B (Rapid) Negative 10/04/19 10/04/19 21:00 21:00 WBC RBC Hgb Hct MCV MCH MCHC RDW Plt Count MPV Neut # (Auto) Lymph # (Auto) [place] # (Auto) Eos # (Auto) Baso # (Auto) Absolute Nucleated RBC Nucleated RBC % Sodium 133 L Potassium 4.4 Chloride 94 L Carbon Dioxide 26 Anion Gap 13.0 BUN 20 Creatinine 1.2 Estimated GFR (MDRD) 57 L Glucose 115 H Lactic Acid 1.4 Calcium 8.6 Total Bilirubin 0.5 AST 21 ALT 14 Alkaline Phosphatase 84 Total Protein 7.6 Albumin 3.5 Globulin 4.1 Albumin/Globulin Ratio 0.9 L Lipase 43 Urine Color Urine Clarity Urine pH Ur Specific [place] Urine Protein Urine Glucose (UA) Urine Ketones Urine Occult Blood Urine Nitrite Urine Bilirubin Urine Urobilinogen Ur Leukocyte Esterase Ur Microscopic Review Urine Culture Comments Influenza A (Rapid) Influenza B (Rapid) - Rads (name of study) chest xray Radiology: Prelim report reviewed, See rad report PD MEDICAL DECISION MAKING - ED course Complexity details: reviewed old records, reviewed results, re-evaluated p atient, considered differential, d/w patient, d/w family ED course: high fever in ED and worsening bilateral infiltrates on CXR. Departure - Departure Disposition: ED Place in Observation Clinical Impression: Pneumonia Qualifiers: Pneumonia type: due to unspecified organism Laterality: bilateral Lung location: unspecified part of lung Qualified Code(s): J18.9 - Pneumonia, unsp ecified organism Condition: Stable Discharge Date/Time: 10/04/19 23:05
[2019-10-04] MEDS ORDERED: ACETAMINOPHEN 325 MG TABLET PO PRN (22:18)
[2019-10-04] MEDS ORDERED: SODIUM CHLORIDE FLUSH 0.9% 10 ML SYRINGE IVP PRN (22:18)
[2019-10-04] MEDS ORDERED: metroNIDAZOLE 500 MG/100 ML 500 MG/100 ML BAG IV ONE (22:25)
[2019-10-04] MEDS ORDERED: LATANOPROST 0.005% OPHTH DROPS RIGHTEYE SCH (22:51)
[2019-10-04] MEDS ORDERED: BENZONATATE 100 MG CAPSULE PO PRN (22:55)
[2019-10-04] MEDS ORDERED: guaiFENesin 100 MG/5 ML UDC PO PRN (22:55)
--- NOTE | 2019-10-04 23:06 | HISTORY & PHYSICAL EXAMINATION ---
Chief Complaint - Chief Complaint Chief Complaint: Fever and chills History of Present Illness - Admitted From Admitted From:: Home - History Obtained From Records Reviewed: Yes History obtained from: Patient, Spouse, ER Physician, EMR - History of Present Illness HPI Comment/Other: This is a 88-year-old male with a past medical history significant for coronary artery disease with stenting in the past, glaucoma who presents today complaining of fever and chills that began around 4 PM this afternoon. He states he developed severe rigors and shakes this evening and he noticed his temperature was 100.2 F. He states he was diagnosed with pneumonia back in July and was treated with antibiotics twice. The first time was azithromycin and second time was Cefdinir which he took for 10 days and finished the treatment on . He has had a persistent cough over the past few months. The cough is nonproductive. He has had associated dyspnea with exertion. Denies orthopnea or lower extremity swelling. He was seen in the emerge department in August for the persistent cough and his chest xray at that time showed stable bilateral infiltrates. He underwent a CT of the chest on outpatient basis which also showed these bilateral infiltrates although a mass could not be excluded. There was also mediastinal lymphadenopathy noted. He has been referred to a farm general manager and scheduled to see one in [place] on October 14. He states he did smoke 2 packs a day for 15 years but he quit over 40 years ago. He reports no exposures to his knowledge during his working years. He does have a history of prostate cancer but this is in remission. He denies hemoptysis or weight loss. Denies any recent travel. In the emergency department, he is found to have a temperature of 39.6 C. He was tachycardic with a heart rate in the 90s. He was also hypertensive with a blood pressure of 153/67. He was not tachypneic and he was saturating well on room air. His labs were unremarkable. Repeat chest x-ray was obtained which showed increased patchy nodular opacities in the lungs compared to the prior films. Given these findings, medicine was consulted for admission. I did discuss goals of care with the patient he would like to be a DNR. History - Past Medical History Cardiovascular: reports: Hypertension, High cholesterol, Coronary artery disease, Atrial fibrillation, Arrhythmia Respiratory: reports: Sleep apnea, CPAP use Neuro: reports: None Endocrine/Autoimmune: reports: None GI: reports: GERD, Hiatal hernia, Diverticulitis : reports: Kidney stones HEENT: reports: None Psych: reports: None Musculoskeletal: reports: Osteoarthritis, Fatigue, Other Derm: reports: Other MRSA Hx?: No - Past Surgical History General: reports: Colonoscopy, EGD Ortho: reports: Other Cardiovascular: reports: CABG, Coronary stent HEENT: reports: Cataracts, Tonsil/Adenoidectomy - Family & Social History Family History Comment/Other: He states his father had coronary artery disease and a stroke. Mother from pancreatic cancer. Living arrangement: At home Living Situation: With spouse/s.o. 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 He no longer smokes but did smoke 2 packs a day for 15 years and quit over 40 years ago. - Substance History Use: Uses substance without health or social issues: NONE - POLST Patient has POLST: No Meds/Allgy - Home Medications Home Medications: Ambulatory Orders Medication Instructions Recorded Confirmed Latanoprost 0.005% Ophth Drops 1 drops RIGHTEYE QPM 12/27/12 08/02/19 [Xalatan] Magnesium 500 mg PO DAILY 12/27/12 08/02/19 Nitroglycerin [Nitrostat] 0.4 mg SL Q5M PRN 12/27/12 08/02/19 [place]-3 Fatty Acids/Fish Oil [Fish 500 mg PO BID 12/27/12 08/02/19 Oil 1,000 mg Capsule] Cyanocobalamin (Vitamin B-12) 1,000 mcg PO DAILY 06/16/15 08/02/19 [Cyanocobalamin Injection] Metoprolol Succinate 50 mg PO DAILY 11/09/17 08/02/19 Aspirin [Aspirin EC] 81 mg PO DAILY 11/10/17 08/02/19 Betaxolol HCl [Betaxolol HCl 0.5%] 1 drops EACHEYE BID 11/10/17 08/02/19 Calcium Carbonate [Tums (Calcium 500 mg PO PRN PRN 11/10/17 08/02/19 Carbonate 500mg)] Cholecalciferol (Vitamin D3) 2,000 units PO DAILY 11/10/17 08/02/19 [Vitamin D3] Vit A/Vit C/Vit E/Zinc/Copper 2 cap PO QDDINNER 11/10/17 08/02/19 [Preservision Areds Softgel] Clopidogrel [Plavix] 75 mg PO DAILY 06/06/18 08/02/19 Acetaminophen [Tylenol] 650 mg PO DAILY 08/02/19 08/02/19 Ezetimibe 10 mg PO DAILY 08/02/19 08/02/19 Isosorbide Mononitrate [Isosorbide 60 mg PO DAILY 08/02/19 08/02/19 Mononitrate ER] Cefdinir 300 mg PO BID #20 capsule 08/10/19 Benzonatate [Tessalon Perle] 100 - 200 mg PO TID PRN #30 capsule 09/10/19 - Allergies Allergies/Adverse Reactions: Allergies Allergy/AdvReac Type Severity Reaction Status Date / Time Sulfa (Sulfonamide Allergy Intermediate Hives Verified 09/10/19 13:07 Antibiotics) lansoprazole [From Prevacid] Allergy Mild Diarrhea Verified 09/10/19 13:07 [id number]-Ymo Reductase Allergy Mild Indigestion/Chest Verified 09/10/19 13:07 Inhibitor pain tetracycline [Tetracycline] Allergy Mild Unknown Verified 09/10/19 13:07 tree nut Allergy Mild Unknown Verified 09/25/19 15:11 diphenhydramine HCl * AdvReac Mild A-fib Verified 09/10/19 13:07 [From Benadryl] egg AdvReac Mild Indigestion Verified 09/25/19 15:11 oats AdvReac Mild Indigestion Verified 09/25/19 15:11 amlodipine AdvReac Rash Verified 09/10/19 13:07 gluten AdvReac Cramps Verified 09/10/19 13:07 ibuprofen [From Advil] AdvReac Rash Verified 09/10/19 13:07 Review of Systems - Constitutional Constitutional: reports: Fever, Chills, Malaise. denies: Fatigue, Weakness, Poor appetite, Weight loss - Cardiovascular Cariovascular: reports: Exertional dyspnea. denies: Chest pain, Decr. exercise tolerance - Respiratory Respiratory: reports: Cough, SOB with exertion. denies: Sputum production, Hemoptysis, Orthopnea, SOB at rest - Gastrointestinal Gastrointestinal: denies: Abdominal pain, Nausea, Vomiting - Genitourinary Genitourinary: denies: Dysuria, Frequency, Urgency - Musculoskeletal Musculoskeletal: denies: Muscle pain - Integumentary Integumentary: denies: Rash - Neurological Neurological: denies: General weakness, Focal weakness - All Other Systems All Other Systems: reports: Reviewed and negative Prior Level of Functionality: He is independent with his ADLs. Exam - Vital Signs Reviewed Vital Signs: Yes Vital Signs: Vital Signs x48h Temp Pulse Resp BP Pulse Ox 10/04/19 22:40 102 H 17 124/59 L 95 10/04/19 22:02 39.3 C H 10/04/19 21:40 97 17 153/67 H 97 10/04/19 21:16 39.6 C H 10/04/19 21:04 98 17 145/75 H 95 10/04/19 20:25 39.4 C H 103 H 14 175/71 H 97 - Physical Exam General Appearance: positive: No acute distress, Alert Eyes Bilateral: positive: Normal inspection, Conjunctivae nml ENT: positive: ENT inspection nml, Pharynx nml Neck: positive: Nml inspection Respiratory: positive: No respiratory distress, Rales (Bilateral rales noted.). negative: Breath sounds nml, Wheezes Cardiovascular: positive: No murmur, Tachycardia. negative: Bradycardia, Systolic murmur, Diastolic murmur Abdomen: positive: Non-tender, No distention. negative: Tenderness, Guarding, Rebound Skin: positive: No rash, Warm, Dry Extremities: positive: Non-tender, Full ROM, No pedal edema Neurologic/Psychiatric: positive: Oriented x3, Motor nml, Sensation nml. negative: Disoriented to person, Disoriented to place, Disoriented to time, Facial droop, Slurred/abnml speech Conclusion/Plan - Problem List (1) Fever Conclusion/Plan: Presents today with a fever of 39.3 that has persisted despite the use of Tylenol. This may potentially be secondary to pneumonia given his x-ray shows worsening of the infiltrates although other causes will need to be ruled out. Other potential differentials includes malignancy and influenza. He does not appear septic at the moment as his blood pressure is stable and his heart rate is borderline tachycardic. He has no white count or left shift. His urinalysis is unremarkable. Influenza is negative. Given the concern for worsening pneumonia, we will place him on Levaquin IV and Flagyl IV. We will follow-up his blood cultures and trend his white count. If his fever persists despite antibiotics, will likely start him on Tamiflu for empiric treatment of influenza. (2) Bilateral pneumonia Conclusion/Plan: Chest x-ray shows worsening of bilateral infiltrates concerning for pneumonia. These findings were present on his prior chest x-ray from July although they do appear worse today. A CT of the chest from about 1 week ago also showed bilateral infiltrates with mediastinal lymphadenopathy although a mass cannot be ruled out. The concern is for possible postobstructive pneumonia given the concern for possible underlying lung mass. We will place him on Levaquin IV to cover for gram negatives and atypical bacteria. We will also place him on Flagyl to cover for anaerobes given the concern for postobstructive pneumonia. We will attempt to obtain a sputum culture. He is scheduled to follow-up with a farm general manager on October 14 and he would likely benefit from a bronchoscopy given the persistent nature of these infiltrates and to also rule out mass. (3) Coronary artery disease Conclusion/Plan: His history of coronary artery disease with bypass and stenting. He is on aspirin and Plavix which will be continued. He is not on a statin due to rhabdomyolysis in the past. (4) Glaucoma Conclusion/Plan: Stable. Resume his home eyedrops. - Lab Results Lab results reviewed: Yes Fish Bones: 10/04/19 21:00 10/04/19 21:00 - Diagnostic Imaging Results Diagnostic Imaging Results: positive: Final report reviewed Core Measures - Anticipated LOS I expect patient to be DC'd or transferred within 96 hours.: Yes - Issues Hospital Issues and Management Plan: This is a 88-year-old male who presents with fever and found to have worsening bilateral infiltrates. Concern is for postobstructive pneumonia and possible lung mass. We will admit him for IV antibiotics and obtain blood cultures. - DVT/VTE - Prophylaxis VTE/DVT Device ordered at admit?: Yes VTE/DVT Prophylaxis med ordered at admit?: Yes
[2019-10-04] MEDS: levoFLOXacin 750 MG/150 ML 750 MG/150 ML BAG IV SCH (23:55)
[2019-10-05] MEDS: LACTATED RINGERS 1,000 ML IV SCH ×2 (01:27→11:30)
[2019-10-05] MEDS: SODIUM CHLORIDE FLUSH 0.9% 10 ML SYRINGE IVP SCH ×3 (01:28→17:31)
[2019-10-05] MEDS: metroNIDAZOLE 500 MG/100 ML 500 MG/100 ML BAG IV SCH ×3 (04:41→21:01)
[2019-10-05 06:20] LABS: BASOPHILS % (AUTO) 0.4 %; EOSINOPHILS # (AUTO) 0.1 10^3/uL (0.0-0.7); EOSINOPHILS % (AUTO) 1.6 %; HGB - HEMOGLOBIN 10.6 g/dL (14.0-18.0); LYMPHOCYTES # (AUTO) 1.5 10^3/uL (1.5-3.5); LYMPHOCYTES % (AUTO) 26.2 %; MEAN CORPUSCULAR HEMOGLOBIN 29.6 pg (27.0-31.0); MEAN CORPUSCULAR HGB CONC 32.5 g/dL (32.0-36.0); MEAN CORPUSCULAR VOLUME 91.1 fL (80.0-94.0); MEAN PLATELET VOLUME 8.8 fL (7.4-11.4); MONOCYTES # (AUTO) 1.6 10^3/uL (0.0-1.0); MONOCYTES % (AUTO) 27.8 %; NEUTROPHILS # (AUTO) 2.4 10^3/uL (1.5-6.6); NEUTROPHILS % (AUTO) 43.6 %; PLT - PLATELET COUNT 209 10^3/uL (130-450); RED BLOOD COUNT 3.58 10^6/uL (4.70-6.10); RED CELL DISTRIBUTION WIDTH 13.5 % (12.0-15.0); WHITE BLOOD COUNT 5.6 x10^3/uL (4.8-10.8)
[2019-10-05 06:30] LABS: CREATININE 1.1 mg/dL (0.6-1.2)
[2019-10-05] MEDS: METOPROLOL SUCCINATE 50 MG TABLET PO SCH ×2 (08:19→12:03)
[2019-10-05] MEDS: ENOXAPARIN 40 MG/0.4 ML SYRINGE SUBQ SCH ×2 (08:20→11:28)
[2019-10-05] MEDS ORDERED: ASPIRIN EC 81 MG TABLET PO SCH ×2 (09:00→18:00)
[2019-10-05] MEDS ORDERED: CLOPIDOGREL 75 MG TABLET PO SCH (09:00)
[2019-10-05] MEDS ORDERED: ISOSORBIDE MONONITRATE ER 30 MG TABLET PO SCH (09:00)
[2019-10-05] MEDS ORDERED: BETAXOLOL 0.25% OPHTH DROPS EACHEYE SCH ×3 (09:00→21:54)
[2019-10-05] MEDS ORDERED: CALCIUM CARBONATE CHEW 500 MG TABLET PO PRN (10:11)
[2019-10-05] MEDS ORDERED: IPRATROPIUM/ALBUTEROL 3 ML NEB INH PRN (10:14)
--- NOTE | 2019-10-05 10:21 | PROVIDER PROGRESS NOTE ---
Subjective - Prog Note Date Prog Note Date: 10/05/19 Prog Note Time: 10:21 - Subjective Pt reports feeling: Improved Subjective: Syed complains of ongoing fatigue, non-productive or thick cough, and overall weakness. He denies diarrhea, chest pain, nausea, vomiting, a rash, or confusion. Current Medications - Current Medications Current Medications: Active Medications: Acetaminophen (Tylenol) 650 mg PO Q4HR PRN Albuterol/Ipratropium (Duoneb) 3 ml INH RTQID MICHAEL Albuterol/Ipratropium (Duoneb) 3 ml INH RTQID PRN Aspirin (Ecotrin) 81 mg PO 1800 MICHAEL Benzonatate (Tessalon) 100 mg PO TID PRN Betaxolol HCl (Betoptic S 0.25% Ophth Drops) 1 drops EACHEYE BID MICHAEL Calcium Carbonate/Glycine (Tums) 1,000 mg PO Q6H PRN Calcium Carbonate/Glycine (Tums) 1,000 mg PO DAILY [facility] Cholecalciferol (Vitamin D3) 2,000 unit PO QDDINNER [facility] Clopidogrel Bisulfate (Plavix) 75 mg PO DAILY [facility] Cyanocobalamin (Vitamin B-12) 1,000 mcg IM .TWICE MONTHLY [facility] Enoxaparin Sodium (Lovenox) 40 mg SUBQ DAILY [facility] Guaifenesin (Robitussin Liquid) 100 mg PO Q6HR PRN Guaifenesin (Mucinex) 600 mg PO BID [facility] Levofloxacin (Levaquin 750 Mg/150 Ml) 750 mg in 150 mls @ 100 mls/hr IV Q24H [facility] Metronidazole (Flagyl 500 Mg/100 Ml) 500 mg in 100 mls @ 100 mls/hr IV Q8H [facility] Latanoprost (Xalatan Ophth Drops) 1 drops RIGHTEYE QPM [facility] Metoprolol Succinate (Toprol Xl) 50 mg PO DAILY [facility] HOME meds: Latanoprost 0.005% Ophth Drops1 drops RIGHTEYE QPM 12/27/12 Magnesium 500 mg PO QDDINNER 12/27/12 Nitroglycerin [Nitrostat] 0.4 mg SL Q5M PRN 12/27/12 [place]-3 Fatty Acids/Fish Oil 500 mg PO QDBREAKFAST 12/27/12 Cyanocobalamin (Vitamin B-12) 1,000 mcg IM .TWICE MONTHLY 06/16/15 Metoprolol Succinate 50 mg PO DAILY 11/09/17 Aspirin [Aspirin EC] 81 mg PO 1800 11/10/17 Betaxolol HCl [Betaxolol HCl 0.5%] 1 drops EACHEYE BID 11/10/17 Calcium Carbonate 1,000 mg PO PRN PRN 11/10/17 Cholecalciferol (Vitamin D3) 2,000 units PO QDDINNER 11/10/17 Vit A/Vit C/Vit E/Zinc/Copper 2 cap PO QDDINNER 11/10/17 Clopidogrel [Plavix] 75 mg PO DAILY 06/06/18 Acetaminophen [Tylenol] 650 mg PO DAILY 08/02/19 Ezetimibe 10 mg PO DAILY 08/02/19 Ascorbyl Palmitate 500 mg PO QDBREAKFAST 10/05/19 Calcium Carbonate 1,000 mg PO DAILY 10/05/19 Digestive 8/L.acidoph/Pectin1 each PO BID 10/05/19 Famotidine [Pepcid AC] 10 mg PO BID 10/05/19 Grape Seed Extract [Meganatural-Bp] 250 mg PO QDDINNER 10/05/19 Propylene Glycol/Peg 400 1 drops EACHEYE TID PRN 10/05/19 Saccharomyces Boulardii [Florastor] 250 mg PO QDBREAKFAST 10/05/19 Vitamin K2 [Menauinone-7] 100 mcg PO QDDINNER 10/05/19 Objective - Vital Signs/Intake & Output Reviewed Vital Signs: Yes Vital Signs: Vital Signs x48h Temp Pulse Pulse Resp BP BP Pulse Ox 10/05/19 07:28 36.7 C 81 16 114/70 97 10/05/19 06:13 36.7 C 79 18 96 10/05/19 04:38 36.7 C 79 18 109/54 L 96 Intake & Output: Intake & Output 10/02/19 10/03/19 10/04/19 10/05/19 23:59 23:59 23:59 23:59 Intake Total 700 Balance 700 - Objective General Appearance: positive: Alert, Mild distress, Anxious Eyes Bilateral: positive: PERRL, No lid inflammation Eyes: OU Conjunctivae pale ENT: positive: Pharyngeal erythema, Dry mucous membranes Neck: positive: No JVD, Trachea midline, Lymphadenopathy (R), Lymphadenopathy (L) Respiratory: positive: Chest non-tender, No respiratory distress, Other (coarse crackles, bilaterally) Cardiovascular: positive: Regular rate & rhythm, Systolic murmur, Decreased pulse(s) Peripheral Pulses: 1+ Radial (R), 1+ Radial (L) Abdomen: positive: Non-tender, Nml bowel sounds Back: positive: Nml inspection Skin: positive: No rash, Warm, Dry Extremities: positive: Non-tender, Full ROM, No pedal edema Neurologic/Psychiatric: positive: Oriented x3, CN's nml (2-12), Motor nml, Sensation nml, Weakness, Sensory loss, Depressed mood/affect (flat) Reflexes: Bicep (R): 3+, Bicep (L): 3+ - Lab Results Fish Bones: 10/05/19 06:10 10/05/19 06:10 Other Labs: Lab Results x24hrs 10/05/19 10/05/19 10/04/19 Range/Units 06:10 06:10 21:00 WBC 5.6 (4.8-10.8) x10^3/uL RBC 3.58 L (4.70-6.10) 10^6/uL Hgb 10.6 L (14.0-18.0) g/dL Hct 32.6 L (42.0-52.0) % MCV 91.1 (80.0-94.0) fL MCH 29.6 (27.0-31.0) pg MCHC 32.5 (32.0-36.0) g/dL RDW 13.5 (12.0-15.0) % Plt Count 209 (130-450) 10^3/uL MPV 8.8 (7.4-11.4) fL Neut # (Auto) 2.4 (1.5-6.6) 10^3/uL Lymph # (Auto) 1.5 (1.5-3.5) 10^3/uL [place] # (Auto) 1.6 H (0.0-1.0) 10^3/uL Eos # (Auto) 0.1 (0.0-0.7) 10^3/uL Baso # (Auto) 0.0 (0.0-0.1) 10^3/uL Absolute Nucleated RBC 0.00 x10^3/uL Nucleated RBC % 0.0 /100WBC Sodium 134 L (135-145) mmol/L Potassium 4.1 (3.5-5.0) mmol/L Chloride 101 (101-111) mmol/L Carbon Dioxide 23 (21-32) mmol/L Anion Gap 10.0 (6-13) BUN 19 (6-20) mg/dL Creatinine 1.1 (0.6-1.2) mg/dL Estimated GFR (MDRD) 63 L (>89) Glucose 92 (70-100) mg/dL Lactic Acid 1.4 (0.5-2.2) mmol/L Calcium 8.0 L (8.5-10.3) mg/dL Total Bilirubin (0.2-1.0) mg/dL AST (10-42) IU/L ALT (10-60) IU/L Alkaline Phosphatase (42-121) IU/L Total Protein (6.7-8.2) g/dL Albumin (3.2-5.5) g/dL Globulin (2.1-4.2) g/dL Albumin/Globulin Ratio (1.0-2.2) Lipase (22-51) U/L Urine Color Urine Clarity (CLEAR) Urine pH (5.0-7.5) PH Ur Specific [place] (1.002-1.030) Urine Protein (NEGATIVE) mg/dL Urine Glucose (UA) (NEGATIVE) mg/dL Urine Ketones (NEGATIVE) mg/dL Urine Occult Blood (NEGATIVE) Urine Nitrite (NEGATIVE) Urine Bilirubin (NEGATIVE) Urine Urobilinogen (NORMAL) E.U./dL Ur Leukocyte Esterase (NEGATIVE) Ur Microscopic Review Urine Culture Comments Influenza A (Rapid) (Negative) Influenza B (Rapid) (Negative) 10/04/19 10/04/19 10/04/19 Range/Units 21:00 21:00 20:30 WBC 6.6 (4.8-10.8) x10^3/uL RBC 3.95 L (4.70-6.10) 10^6/uL Hgb 11.9 L (14.0-18.0) g/dL Hct 35.9 L (42.0-52.0) % MCV 90.9 (80.0-94.0) fL MCH 30.1 (27.0-31.0) pg MCHC 33.1 (32.0-36.0) g/dL RDW 13.6 (12.0-15.0) % Plt Count 260 (130-450) 10^3/uL MPV 8.9 (7.4-11.4) fL Neut # (Auto) 4.6 (1.5-6.6) 10^3/uL Lymph # (Auto) 1.0 L (1.5-3.5) 10^3/uL [place] # (Auto) 0.9 (0.0-1.0) 10^3/uL Eos # (Auto) 0.1 (0.0-0.7) 10^3/uL Baso # (Auto) 0.0 (0.0-0.1) 10^3/uL Absolute Nucleated RBC 0.00 x10^3/uL Nucleated RBC % 0.0 /100WBC Sodium 133 L (135-145) mmol/L Potassium 4.4 (3.5-5.0) mmol/L Chloride 94 L (101-111) mmol/L Carbon Dioxide 26 (21-32) mmol/L Anion Gap 13.0 (6-13) BUN 20 (6-20) mg/dL Creatinine 1.2 (0.6-1.2) mg/dL Estimated GFR (MDRD) 57 L (>89) Glucose 115 H (70-100) mg/dL Lactic Acid (0.5-2.2) mmol/L Calcium 8.6 (8.5-10.3) mg/dL Total Bilirubin 0.5 (0.2-1.0) mg/dL AST 21 (10-42) IU/L ALT 14 (10-60) IU/L Alkaline Phosphatase 84 (42-121) IU/L Total Protein 7.6 (6.7-8.2) g/dL Albumin 3.5 (3.2-5.5) g/dL Globulin 4.1 (2.1-4.2) g/dL Albumin/Globulin Ratio 0.9 L (1.0-2.2) Lipase 43 (22-51) U/L Urine Color Urine Clarity (CLEAR) Urine pH (5.0-7.5) PH Ur Specific [place] (1.002-1.030) Urine Protein (NEGATIVE) mg/dL Urine Glucose (UA) (NEGATIVE) mg/dL Urine Ketones (NEGATIVE) mg/dL Urine Occult Blood (NEGATIVE) Urine Nitrite (NEGATIVE) Urine Bilirubin (NEGATIVE) Urine Urobilinogen (NORMAL) E.U./dL Ur Leukocyte Esterase (NEGATIVE) Ur Microscopic Review Urine Culture Comments Influenza A (Rapid) Negative (Negative) Influenza B (Rapid) Negative (Negative) 10/04/19 Range/Units 19:30 WBC (4.8-10.8) x10^3/uL RBC (4.70-6.10) 10^6/uL Hgb (14.0-18.0) g/dL Hct (42.0-52.0) % MCV (80.0-94.0) fL MCH (27.0-31.0) pg MCHC (32.0-36.0) g/dL RDW (12.0-15.0) % Plt Count (130-450) 10^3/uL MPV (7.4-11.4) fL Neut # (Auto) (1.5-6.6) 10^3/uL Lymph # (Auto) (1.5-3.5) 10^3/uL [place] # (Auto) (0.0-1.0) 10^3/uL Eos # (Auto) (0.0-0.7) 10^3/uL Baso # (Auto) (0.0-0.1) 10^3/uL Absolute Nucleated RBC x10^3/uL Nucleated RBC % /100WBC Sodium (135-145) mmol/L Potassium (3.5-5.0) mmol/L Chloride (101-111) mmol/L Carbon Dioxide (21-32) mmol/L Anion Gap (6-13) BUN (6-20) mg/dL Creatinine (0.6-1.2) mg/dL Estimated GFR (MDRD) (>89) Glucose (70-100) mg/dL Lactic Acid (0.5-2.2) mmol/L Calcium (8.5-10.3) mg/dL Total Bilirubin (0.2-1.0) mg/dL AST (10-42) IU/L ALT (10-60) IU/L Alkaline Phosphatase (42-121) IU/L Total Protein (6.7-8.2) g/dL Albumin (3.2-5.5) g/dL Globulin (2.1-4.2) g/dL Albumin/Globulin Ratio (1.0-2.2) Lipase (22-51) U/L Urine Color YELLOW Urine Clarity CLEAR (CLEAR) Urine pH 8.0 H (5.0-7.5) PH Ur Specific [place] 1.015 (1.002-1.030) Urine Protein NEGATIVE (NEGATIVE) mg/dL Urine Glucose (UA) NEGATIVE (NEGATIVE) mg/dL Urine Ketones NEGATIVE (NEGATIVE) mg/dL Urine Occult Blood NEGATIVE (NEGATIVE) Urine Nitrite NEGATIVE (NEGATIVE) Urine Bilirubin NEGATIVE (NEGATIVE) Urine Urobilinogen 0.2 (NORMAL) (NORMAL) E.U./dL Ur Leukocyte Esterase NEGATIVE (NEGATIVE) Ur Microscopic Review NOT INDICATED Urine Culture Comments NOT INDICATED Influenza A (Rapid) (Negative) Influenza B (Rapid) (Negative) ABX Reporting Has patient been on IV antibiotics over the past 48 hours?: Yes Assessment/Plan - Problem List (1) Fever Impression: -Last documented fever is on 10/04/2019 @ 23:22 -Patients notes that she thinks his forehead feels like he has a fever today -Patient notes that he has been fatigued today -Likely a result of his undertreated pneumonia Bilateral pneumonia -Chest x-ray shows worsening of bilateral infiltrates concerning for pneumonia -A chest CT from 09/25/2019 showed bilateral infiltrates with mediastinal lymphadenopathy although a mass cannot be ruled out -Differential may be postobstructive pneumonia given the concern for possible underlying lung mass -Patient continues on IV antibiotics of Levofloxacin/Flagyl -No oxygen needs today -Await sputum sample -Added duo-nebs & guaifenesin today for complaints of thick sputum -Recommend follow-up with a supervisor pullet farm on October 14, with a possible bronchoscopy -Monitor closely for recurrent fevers, or hypoxia Normocytic anemia -Appears to be chronic, based on records review -Low stable today with an H/H of 10.6/32.6 -Routine labs Coronary artery disease -Status post CABG with coronary stenting (unknown year) -Continues on aspirin, Plavix, & Ezetimibe Glaucoma -Remains on home eyedrops
--- NOTE | 2019-10-05 11:28 | PHARMACY PROGRESS NOTE ---
- Best Possible Medication History Admit Date and Time: 10/05/19 1010 Processed by: Pharmacy Medication History completed: Yes Patient Interview: Completed Secondary Source(s): Written medication list, Spouse/Significant other, Pharmacy records, Insurance records As the person ultimately responsible for medication therapy, providers are able to order a medication from an existing home medication list in [facility] via the "Reconcile Routine" prior to Confirmation of that medication by business support liaison. Such practice is discouraged except when the physician, in their clinical judgment, deems that a medical need exists for a medication without regard to previous use.
[2019-10-05] MEDS: BETAXOLOL 0.25% OPHTH DROPS EACHEYE SCH ×2 (11:37→17:38)
[2019-10-05] MEDS: IPRATROPIUM/ALBUTEROL 3 ML NEB INH SCH ×3 (11:44→20:58)
[2019-10-05] MEDS: CLOPIDOGREL 75 MG TABLET PO SCH (12:03)
[2019-10-05] MEDS: guaiFENesin 600 MG TABLET PO SCH ×2 (12:03→21:00)
[2019-10-05] MEDS: CALCIUM CARBONATE CHEW 500 MG TABLET PO SCH (12:04)
[2019-10-05] MEDS ORDERED: CHOLECALCIFEROL 1,000 UNIT TABLET PO SCH (17:00)
[2019-10-05] MEDS ORDERED: LATANOPROST 0.005% OPHTH DROPS RIGHTEYE SCH (21:00)
[2019-10-05] MEDS: levoFLOXacin 750 MG/150 ML 750 MG/150 ML BAG IV SCH (22:34)
[2019-10-06] MEDS: LACTATED RINGERS 1,000 ML IV SCH (00:12)
[2019-10-06] MEDS: SODIUM CHLORIDE FLUSH 0.9% 10 ML SYRINGE IVP SCH ×2 (01:45→08:33)
[2019-10-06] MEDS: metroNIDAZOLE 500 MG/100 ML 500 MG/100 ML BAG IV SCH (04:12)
[2019-10-06 05:40] LABS: BASOPHILS % (AUTO) 0.5 %; EOSINOPHILS % (AUTO) 0.7 %; LYMPHOCYTES # (AUTO) 1.3 10^3/uL (1.5-3.5); LYMPHOCYTES % (AUTO) 22.8 %; MEAN CORPUSCULAR HEMOGLOBIN 29.2 pg (27.0-31.0); MEAN CORPUSCULAR HGB CONC 32.7 g/dL (32.0-36.0); MEAN CORPUSCULAR VOLUME 89.2 fL (80.0-94.0); MEAN PLATELET VOLUME 9.2 fL (7.4-11.4); MONOCYTES # (AUTO) 1.4 10^3/uL (0.0-1.0); MONOCYTES % (AUTO) 24.6 %; NEUTROPHILS # (AUTO) 2.9 10^3/uL (1.5-6.6); NEUTROPHILS % (AUTO) 50.9 %; PLT - PLATELET COUNT 211 10^3/uL (130-450); RED BLOOD COUNT 3.43 10^6/uL (4.70-6.10); RED CELL DISTRIBUTION WIDTH 13.8 % (12.0-15.0); WHITE BLOOD COUNT 5.7 x10^3/uL (4.8-10.8)
[2019-10-06 05:46] LABS: CALCIUM 8.1 mg/dL (8.5-10.3); CREATININE 1.1 mg/dL (0.6-1.2)
[2019-10-06] MEDS: IPRATROPIUM/ALBUTEROL 3 ML NEB INH SCH (07:16)
[2019-10-06 08:11] VITALS: BP 129/52
[2019-10-06] MEDS: CALCIUM CARBONATE CHEW 500 MG TABLET PO SCH (08:11)
[2019-10-06] MEDS: ENOXAPARIN 40 MG/0.4 ML SYRINGE SUBQ SCH (08:33)
[2019-10-06] MEDS: METOPROLOL SUCCINATE 50 MG TABLET PO SCH (08:33)
[2019-10-06] MEDS: CLOPIDOGREL 75 MG TABLET PO SCH (08:33)
[2019-10-06] MEDS: guaiFENesin 600 MG TABLET PO SCH (08:33)
[2019-10-06] MEDS ORDERED: CLOPIDOGREL 75 MG TABLET PO SCH (09:00)
[2019-10-06] MEDS ORDERED: CALCIUM CARBONATE CHEW 500 MG TABLET PO SCH (09:00)
--- NOTE | 2019-10-06 10:09 | Discharge Plan ---
Discharge Plan Problem Reviewed?: Yes Disposition: Home, Self Care Condition: Good Prescriptions: Benzonatate [Tessalon] 100 mg PO TID PRN #30 capsule PRN Reason: Cough guaiFENesin [Mucinex] 600 mg PO BID #30 tablet Inhaler, Assist Devices [Breatherite] 1 each MC QID PRN #1 spacer PRN Reason: As Needed Per Provider Orders Levalbuterol [Xopenex] 1 puffs INH Q4-6H PRN #1 inhaler PRN Reason: Wheezing levoFLOXacin [Levofloxacin] 500 mg PO DAILY #8 tablet Metronidazole [Flagyl] 500 mg PO Q12H #20 tablet Diet: Regular Activity Restrictions: Activity as Tolerated Instruction Topics: Pneumonia Prevent, Pneumonia Tx Health Concerns: Bilateral pneumonia Cough Fever Plan of Treatment: Continue the Flagyl antibiotic for another 10 days, continue Levofloxacin for another 8 days. See your Molded Goods Controls Operator as planned on 10/14. Take the Xopenex inhaler (spacer if needed) for shortness of breath or wheezing. Take the Guaifenesin twice daily for the next several days as it thins out our secretions in hopes that you will cough this out. Take the Tessalon pills as needed for cough. See your Primary care provider within one week. Have your home CPAP unit checked over by the company who supplies it or take it along to your Pulmonology appointment. Care Goals: Prevent hospital stays or ED visits. Control symptoms. Prevent further episodes of pneumonia. Assessment: You were admitted to the hospital to more aggressively treat your bilateral pneumonia that was found on imaging when you came to the ED. Since you had a fever, this showed inadequate treatment of your pneumonia prior to this hospital stay. You did not require any supplemental oxygen. You have been free of fever s for greater than 24 hours. To assist with breaking up your deep secretions in your lungs, you were started on duo-nebs, which caused some shakiness, so I am prescribing a similar inhaler to be used at home without the shaky, or fast heart rate side effects. You can use this inhaler as needed for shortness of breath or wheezing. You are medically stable and can return home with your today. No Smoking: If you smoke, Please STOP! Call for help. Follow-up with: Nick Nova MD [Primary Care Provider] -
--- NOTE | 2019-10-06 10:31 | DISCHARGE SUMMARY ---
Discharge Summary Admit Date: 10/04/19 Discharge Date: 10/06/19 Discharging Provider: WILL Thibodeaux Primary Care Provider: Nick Nova Code Status: Do Not Attempt Resuscitation Condition at Discharge: Good Discharge Disposition: 01 Home, Self Care - DIAGNOSES Admission Diagnoses: Fever Bilateral pneumonia Coronary artery disease Glaucoma Discharge Diagnoses with Status of Each Condition: Fever-Resolved Bilateral pneumonia-Present on admission, failure of outpatient treatment, continue Flagyl, and Levofloxacin at home, follow up with Pulmonology as scheduled, stable, no oxygen requirements Normocytic anemia-Chronic, stable Coronary artery disease-Chronic, stable Glaucoma-Chronic, stable Cough-Improved with Duo-nebs, remained non-productive, also started on guaifenesin, and Tessalon PRN to continue at home, stable - HPI History of Present Illness: HPI per Dr. Paige: This is a 88-year-old male with a past medical history significant for coronary artery disease with stenting in the past, glaucoma who presents today complaining of fever and chills that began around 4 PM this afternoon. He states he developed severe rigors and shakes this evening and he noticed his temperature was 100.2 F. He states he was diagnosed with pneumonia back in July and was treated with antibiotics twice. The first time was azithromycin and second time was Cefdinir which he took for 10 days and finished the treatment on . He has had a persistent cough over the past few months. The cough is nonproductive. He has had associated dyspnea with exertio n. Denies orthopnea or lower extremity swelling. He was seen in the emerge department in August for the persistent cough and his chest xray at that time showed stable bilateral infiltrates. He underwent a CT of the chest on outpatient basis which also showed these bilateral infiltrates although a mass could not be excluded. There was also mediastinal lymphadenopathy noted. He has been referred to a fish protector and scheduled to see one in [place] on October 14. He states he did smoke 2 packs a day for 15 years but he quit over 40 years ago. He reports no exposures to his knowledge during his working years. He does have a history of prostate cancer but this is in remission. He denies hemoptysis or weight loss. Denies any recent travel. In the emergency department, he is found to have a temperature of 39.6 C. He was tachycardic with a heart rate in the 90s. He was also hypertensive with a blood pressure of 153/67. He was not tachypneic and he was saturating well on room air. His labs were unremarkable. Repeat chest x-ray was obtained which showed increased patchy nodular opacities in the lungs compared to the prior films. Given these findings, medicine was consulted for admission. I did discuss goals of care with the patient he would like to be a DNR. - HOSPITAL COURSE Hospital Course: The patient was admitted to the hospital to more aggressively treat his bilateral pneumonia that was found on imaging upon arrival to the ED. Since he had a fever, this showed inadequate treatment of the pneumonia prior to this hospital stay. The patient did not require any supplemental oxygen. Since the patient was free of fevers for greater than 24 hours, he was free to return home. The patient was started on duo-nebs, which caused some shakiness, so he was prescribed a similar inhaler to be used at home without the shaky, or fast heart rate side effects. Pharmacy called a short time after the patient was discharged and informed us that the Xopenex may not be covered, so Albuterol inhaler was substituted. The patient was medically stable and returned home with his today. - ALLERGIES Allergies/Adverse Reactions: Allergies Allergy/AdvReac Type Severity Reaction Status Date / Time Sulfa (Sulfonamide Allergy Intermediate Hives Verified 09/10/19 13:07 Antibiotics) lansoprazole [From Prevacid] Allergy Mild Diarrhea Verified 09/10/19 13:07 Rzxvjnz-Ejn-Spv Reductase Allergy Mild Indigestion/Chest Verified 09/10/19 13:07 Inhibitor pain tetracycline [Tetracycline] Allergy Mild Unknown Verified 09/10/19 13:07 tree nut Allergy Mild Unknown Verified 09/25/19 15:11 diphenhydramine HCl * AdvReac Mild A-fib Verified 09/10/19 13:07 [From Benadryl] egg AdvReac Mild Indigestion Verified 09/25/19 15:11 oats AdvReac Mild Indigestion Verified 09/25/19 15:11 amlodipine AdvReac Rash Verified 09/10/19 13:07 gluten AdvReac Cramps Verified 09/10/19 13:07 ibuprofen [From Advil] AdvReac Rash Verified 09/10/19 13:07 - MEDICATIONS Home Medications: Ambulatory Orders Medication Instructions Recorded Confirmed Latanoprost 0.005% Ophth Drops 1 drops RIGHTEYE QPM 12/27/12 10/05/19 [Xalatan Ophth Drops] Magnesium 500 mg PO QDDINNER 12/27/12 10/05/19 Nitroglycerin [Nitrostat] 0.4 mg SL Q5M PRN 12/27/12 10/05/19 [place]-3 Fatty Acids/Fish Oil [Fish 500 mg PO QDBREAKFAST 12/27/12 10/05/19 Oil 1,000 mg Capsule] Cyanocobalamin (Vitamin B-12) 1,000 mcg IM .TWICE MONTHLY 06/16/15 10/05/19 [Cyanocobalamin Injection] Metoprolol Succinate 50 mg PO DAILY 11/09/17 10/05/19 Aspirin [Aspirin EC] 81 mg PO 1800 11/10/17 10/05/19 Betaxolol HCl [Betaxolol HCl 0.5%] 1 drops EACHEYE BID 11/10/17 10/05/19 Calcium Carbonate [Tums (Calcium 1,000 mg PO PRN PRN 11/10/17 10/05/19 Carbonate 500mg)] Cholecalciferol (Vitamin D3) 2,000 units PO QDDINNER 11/10/17 10/05/19 [Vitamin D3] Vit A/Vit C/Vit E/Zinc/Copper 2 cap PO QDDINNER 11/10/17 10/05/19 [Preservision Areds Softgel] Clopidogrel [Plavix] 75 mg PO DAILY 06/06/18 10/05/19 Acetaminophen [Tylenol] 650 mg PO DAILY 08/02/19 10/05/19 Ezetimibe 10 mg PO DAILY 08/02/19 10/05/19 Ascorbyl Palmitate 500 mg PO QDBREAKFAST 10/05/19 10/05/19 Calcium Carbonate [Tums (Calcium 1,000 mg PO DAILY 10/05/19 10/05/19 Carbonate 500mg)] Digestive 8/L.acidoph/Pectin 1 each PO BID 10/05/19 10/05/19 [Digestive Enzymes Tablet] Famotidine [Pepcid AC] 10 mg PO BID 10/05/19 10/05/19 Grape Seed Extract [Meganatural-Bp] 250 mg PO QDDINNER 10/05/19 10/05/19 Propylene Glycol/Peg 400 [Systane 1 drops EACHEYE TID PRN 10/05/19 10/05/19 Ultra 0.4-0.3% Eye Drp] Saccharomyces Boulardii [Florastor] 250 mg PO QDBREAKFAST 10/05/19 10/05/19 Vitamin K2 [Menauinone-7] 100 mcg PO QDDINNER 10/05/19 10/05/19 Benzonatate [Tessalon] 100 mg PO TID PRN #30 capsule 10/06/19 Inhaler, Assist Devices 1 each MC QID PRN #1 spacer 10/06/19 [Breatherite] Levalbuterol [Xopenex] 1 puffs INH Q4-6H PRN #1 inhaler 10/06/19 Metronidazole [Flagyl] 500 mg PO Q12H #20 tablet 10/06/19 guaiFENesin [Mucinex] 600 mg PO BID #30 tablet 10/06/19 levoFLOXacin [Levofloxacin] 500 mg PO DAILY #8 tablet 10/06/19 - PHYSICAL EXAM AT DISCHARGE General Appearance: positive: No acute distress, Alert Eyes Bilateral: positive: Normal inspection, No lid inflammation ENT: positive: Pharyngeal erythema, Dry mucous membranes Neck: positive: No JVD, Trachea midline Respiratory: positive: Chest non-tender, No respiratory distress, Other (s cattered crackles which clear after coughing) Cardiovascular: positive: Regular rate & rhythm, No gallop, Systolic murmur (slight/distant), Decreased pulse(s) Peripheral Pulses: positive: 2+ Abdomen: positive: Non-tender, Nml bowel sounds, Hepatomegaly, Other (rounded, soft, enlarged slightly per patient) Back: positive: Nml inspection Skin: positive: No rash, Warm, Dry, Other (mildly bronze, pale toned) Extremities: positive: Non-tender, Full ROM, No pedal edema Neurologic/Psychiatric: positive: Oriented x3, CN's nml (2-12), Motor nml, Sensation nml, Mood/affect nml, Weakness, Other (baseline early dementia) Reflexes: Bicep (R): 3+, Bicep (L): 3+ - LABS Result Diagrams: 10/06/19 05:09 10/06/19 05:09 - FOLLOW UP Follow Up: See your PCP within one week. See your [facility] as scheduled next Saturday 10/14. No follow up labs indicated. - TIME SPENT Time Spent in Discharge (Minutes): 60
[2019-10-09] MEDS ORDERED: CYANOCOBALAMIN 1,000 MCG/ML VIAL IM SCH (11:00)
== END 2019-10-06 11:00 | disposition home or self-care (01) | DRG 195 ==
LOC: ED 20:06 → MS2 22:18 → OBSVTOIN 10-05 10:10
PROVIDERS: ADMIT Internal Medicine; ATTEND Nurse Practitioner
DX: J18.9 Pneumonia, unspecified organism (principal); I25.10 Atherosclerotic heart disease of native coronary artery without angina pectoris; E78.00 Pure hypercholesterolemia, unspecified; I48.91 Unspecified atrial fibrillation; G47.30 Sleep apnea, unspecified; D64.9 Anemia, unspecified; K21.9 Gastro-esophageal reflux disease without esophagitis; K44.9 Diaphragmatic hernia without obstruction or gangrene; M19.90 Unspecified osteoarthritis, unspecified site; R53.83 Other fatigue; H40.9 Unspecified glaucoma; R59.0 Localized enlarged lymph nodes; Z66 Do not resuscitate; Z95.1 Presence of aortocoronary bypass graft; Z79.82 Long term (current) use of aspirin; Z95.5 Presence of coronary angioplasty implant and graft; Z87.891 Personal history of nicotine dependence; Z85.46 Personal history of malignant neoplasm of prostate
CPT/HCPCS: 36415; 71046; 80048; 80053; 81003; 83605; 83690; 85025; 87040; 87275; 87276; 94640; 96361; 96365; 96366; 96367; 96368; 99284; 99285; A9270; G0378; J7120; 81001; 87086

== ENCOUNTER 2020-02-28 13:49 | Outpatient (CLI) | payer MEDICARE, OTHER | END 2020-02-28 13:50 | disposition critical access hospital (66) | LOC: EMS 13:49 | PROVIDERS: ATTEND Surgery | DX: R07.9 Chest pain, unspecified (principal) | CPT/HCPCS: A0425; A0427 ==

== ENCOUNTER 2020-02-28 14:01 | Emergency (ER) | payer MEDICARE, OTHER ==
--- NOTE | 2020-02-28 14:08 | ED Physician Documentation ---
PD HPI CHEST PAIN - Stated complaint Stated Complaint: CHEST PX - History obtained from History obtained from: Patient - Additional information Additional information: This is an 89-year-old gentleman with history of coronary disease, he had a bypass in 1993, subsequently required stenting in around 2013. He also has in geography since then but had non-intervene able coronary disease. This morning around 7 or 730 he developed substernal and epigastric chest pain which was otherwise nonradiating. It increased throughout the morning and he took a couple of nitroglycerin at home with partial relief. On the way here he was given more nitroglycerin and a small amount of morphine with complete resolution of his pain. He is pain-free now. There was no associated shortness of breath, nausea, sweats. Denies pedal edema or calf pain. Prehospital EKGs were nonischemic. There was no radiation to the back, arms or jaw. His lubricating specialist is Dr. Vick at [facility]. Review of Systems Ten Systems: 10 systems reviewed and negative Constitutional: denies: Fever, Chills Throat: reports: Reviewed and negative Cardiac: reports: Chest pain / pressure. denies: Palpitations Respiratory: denies: Dyspnea, Cough PD PAST MEDICAL HISTORY - Past Medical History Cardiovascular: Hypertension, High cholesterol, Coronary artery disease, Atrial fibrillation, Arrhythmia Respiratory: Sleep apnea, CPAP use Neuro: None Endocrine/Autoimmune: None GI: GERD, Hiatal hernia, Diverticulitis : Kidney stones HEENT: None Psych: None Musculoskeletal: Osteoarthritis, Fatigue, Other Derm: Other - Past Surgical History Past Surgical History: Yes General: Colonoscopy, EGD Ortho: Other Cardiovascular: CABG, Coronary stent HEENT: Cataracts, Tonsil/Adenoidectomy - Present Medications Home Medications: Ambulatory Orders Medication Instructions Recorded Confirmed Latanoprost 0.005% Ophth Drops 1 drops RIGHTEYE QPM 12/27/12 10/05/19 [Xalatan Ophth Drops] Magnesium 500 mg PO QDDINNER 12/27/12 10/05/19 Nitroglycerin [Nitrostat] 0.4 mg SL Q5M PRN 12/27/12 10/05/19 [place]-3 Fatty Acids/Fish Oil [Fish 500 mg PO QDBREAKFAST 12/27/12 10/05/19 Oil 1,000 mg Capsule] Cyanocobalamin (Vitamin B-12) 1,000 mcg IM .TWICE MONTHLY 06/16/15 10/05/19 [Cyanocobalamin Injection] Metoprolol Succinate 50 mg PO DAILY 11/09/17 10/05/19 Aspirin [Aspirin EC] 81 mg PO 1800 11/10/17 10/05/19 Betaxolol HCl [Betaxolol HCl 0.5%] 1 drops EACHEYE BID 11/10/17 10/05/19 Calcium Carbonate [Tums (Calcium 1,000 mg PO PRN PRN 11/10/17 10/05/19 Carbonate 500mg)] Cholecalciferol (Vitamin D3) 2,000 units PO QDDINNER 11/10/17 10/05/19 [Vitamin D3] Vit A/Vit C/Vit E/Zinc/Copper 2 cap PO QDDINNER 11/10/17 10/05/19 [Preservision Areds Softgel] Clopidogrel [Plavix] 75 mg PO DAILY 06/06/18 10/05/19 Acetaminophen [Tylenol] 650 mg PO DAILY 08/02/19 10/05/19 Ezetimibe 10 mg PO DAILY 08/02/19 10/05/19 Ascorbyl Palmitate 500 mg PO QDBREAKFAST 10/05/19 10/05/19 Calcium Carbonate [Tums (Calcium 1,000 mg PO DAILY 10/05/19 10/05/19 Carbonate 500mg)] Digestive 8/L.acidoph/Pectin 1 each PO BID 10/05/19 10/05/19 [Digestive Enzymes Tablet] Famotidine [Pepcid AC] 10 mg PO BID 10/05/19 10/05/19 Grape Seed Extract [Meganatural-Bp] 250 mg PO QDDINNER 10/05/19 10/05/19 Propylene Glycol/Peg 400 [Systane 1 drops EACHEYE TID PRN 10/05/19 10/05/19 Ultra 0.4-0.3% Eye Drp] Saccharomyces Boulardii [Florastor] 250 mg PO QDBREAKFAST 10/05/19 10/05/19 Vitamin K2 [Menauinone-7] 100 mcg PO QDDINNER 10/05/19 10/05/19 Benzonatate [Tessalon] 100 mg PO TID PRN #30 capsule 10/06/19 Inhaler, Assist Devices 1 each MC QID PRN #1 spacer 10/06/19 [Breatherite] Levalbuterol [Xopenex] 1 puffs INH Q4-6H PRN #1 inhaler 10/06/19 guaiFENesin [Mucinex] 600 mg PO BID #30 tablet 10/06/19 levoFLOXacin [Levofloxacin] 500 mg PO DAILY #8 tablet 10/06/19 metroNIDAZOLE [Flagyl] 500 mg PO Q12H #20 tablet 10/06/19 - Allergies Allergies/Adverse Reactions: Allergies Allergy/AdvReac Type Severity Reaction Status Date / Time Sulfa (Sulfonamide Allergy Intermediate Hives Verified 02/28/20 14:13 Antibiotics) lansoprazole [From Prevacid] Allergy Mild Diarrhea Verified 02/28/20 14:13 Vkgvqiu-Vsg-Yxn Reductase Allergy Mild Indigestion/Chest Verified 02/28/20 14:13 Inhibitor pain tetracycline [Tetracycline] Allergy Mild Unknown Verified 02/28/20 14:13 tree nut Allergy Mild Unknown Verified 09/25/19 15:11 diphenhydramine HCl * AdvReac Mild A-fib Verified 02/28/20 14:13 [From Benadryl] egg AdvReac Mild Indigestion Verified 02/28/20 14:13 oats AdvReac Mild Indigestion Verified 09/25/19 15:11 amlodipine AdvReac Rash Verified 02/28/20 14:13 gluten AdvReac Cramps Verified 02/28/20 14:13 ibuprofen [From Advil] AdvReac Rash Verified 02/28/20 14:13 - Social History Does the pt smoke?: No Smoking Status: Never smoker Does the pt drink ETOH?: Yes Does the pt have substance abuse?: No - Family History Family history: reports: Non contributory - Immunizations Immunizations are current?: Yes - POLST Patient has POLST: No PD ED PE NORMAL - Vitals Vital signs reviewed: Yes - General General: Alert and oriented X 3, No acute distress - HEENT HEENT: PERRL, EOMI - Neck Neck: Supple, no meningeal sign, No bony TTP - Cardiac Cardiac: RRR, No murmur - Respiratory Respiratory: No respiratory distress, Clear bilaterally - Abdomen Abdomen: Non tender - Back Back: No CVA TTP, No spinal TTP - Derm Derm: Normal color, Warm and dry - Extremities Extremities: No edema, No calf tenderness / cord - Neuro Neuro: Alert and oriented X 3, Normal speech Results - Vitals Vitals: Vital Signs - 24 hr 02/28/20 02/28/20 02/28/20 14:08 14:48 15:33 Temperature 36.5 C Heart Rate 60 59 L 57 L Respiratory 11 L 18 10 L Rate Blood Pressure 153/90 H 122/63 112/63 O2 Saturation 100 97 97 02/28/20 16:15 Temperature Heart Rate 54 L Respiratory 16 Rate Blood Pressure 112/56 L O2 Saturation 98 Oxygen O2 Source Room air - EKG (time done) 1406 Rate: Rate (enter#) (62) Rhythm: NSR [place]: Normal Intervals: Normal ME QRS: Normal Ischemia: Normal ST segments Computer interpretation: Agree with computer - Labs Labs: Laboratory Tests 02/28/20 02/28/20 02/28/20 14:26 14:26 14:26 WBC 4.3 L RBC 3.81 L Hgb 11.9 L Hct 34.5 L MCV 90.6 MCH 31.2 H MCHC 34.5 RDW 12.8 Plt Count 201 MPV 9.3 Neut # (Auto) 1.3 L Lymph # (Auto) 1.9 [place] # (Auto) 0.9 Eos # (Auto) 0.1 Baso # (Auto) 0.0 Absolute Nucleated RBC 0.00 Nucleated RBC % 0.0 PT 11.5 INR 1.0 Sodium 132 L Potassium 4.0 Chloride 94 L Carbon Dioxide 27 Anion Gap 11.0 BUN 23 H Creatinine 1.1 Estimated GFR (MDRD) 63 L Glucose 103 H Calcium 9.5 Total Bilirubin 0.7 AST 19 ALT 17 Alkaline Phosphatase 77 Troponin I High Sens Total Protein 7.0 Albumin 4.1 Globulin 2.9 Albumin/Globulin Ratio 1.4 Lipase 43 02/28/20 02/28/20 14:26 16:30 WBC RBC Hgb Hct MCV MCH MCHC RDW Plt Count MPV Neut # (Auto) Lymph # (Auto) [place] # (Auto) Eos # (Auto) Baso # (Auto) Absolute Nucleated RBC Nucleated RBC % PT INR Sodium Potassium Chloride Carbon Dioxide Anion Gap BUN Creatinine Estimated GFR (MDRD) Glucose Calcium Total Bilirubin AST ALT Alkaline Phosphatase Troponin I High Sens 4.1 4.1 Total Protein Albumin Globulin Albumin/Globulin Ratio Lipase - Rads (name of study) 1v CHEST Radiology: EMP read contemporaneously (NAD) PD MEDICAL DECISION MAKING - ED course ED course: 89-year-old gentleman with known coronary disease presents with a resolved chest pain episode. His EKG is nonischemic and 2 troponins done in the emergency departments were without significant delta change and on the low end of normal. He remained pain-free here. Advise close follow-up with his lubricating specialist and to return for recurrent chest pain. Departure - Departure Disposition: Home, Self Care Clinical Impression: Chest pain Qualifiers: Chest pain type: unspecified Qualified Code(s): R07.9 - Chest pain, unspecified Coronary artery disease Qualifiers: Coronary Disease-Associated Artery/Lesion type: unspecified vessel or lesion type [place] vs. transplanted heart: [place] heart Associated angina: angina presence unspecified Qualified Code(s): I25.10 - Atherosclerotic heart disease of [place] coronary artery without angina pectoris Condition: Good Record reviewed to determine appropriate education?: Yes Instructions: Angina Dc Comments: No evidence of heart attack today, but that does not mean that the pain you experienced earlier today was not from your heart. Continue current medications, call your lubricating specialist on Monday to see if your next appointment should be expedited. Return by 911 if you develop recurrent pain.
[2020-02-28 14:30] LABS: BASOPHILS % (AUTO) 0.9 %; EOSINOPHILS # (AUTO) 0.1 10^3/uL (0.0-0.7); EOSINOPHILS % (AUTO) 3.3 %; HGB - HEMOGLOBIN 11.9 g/dL (14.0-18.0); LYMPHOCYTES # (AUTO) 1.9 10^3/uL (1.5-3.5); LYMPHOCYTES % (AUTO) 44.4 %; MEAN CORPUSCULAR HEMOGLOBIN 31.2 pg (27.0-31.0); MEAN CORPUSCULAR HGB CONC 34.5 g/dL (32.0-36.0); MEAN CORPUSCULAR VOLUME 90.6 fL (80.0-94.0); MEAN PLATELET VOLUME 9.3 fL (7.4-11.4); MONOCYTES # (AUTO) 0.9 10^3/uL (0.0-1.0); MONOCYTES % (AUTO) 20.2 %; NEUTROPHILS # (AUTO) 1.3 10^3/uL (1.5-6.6); PLT - PLATELET COUNT 201 10^3/uL (130-450); RED BLOOD COUNT 3.81 10^6/uL (4.70-6.10); RED CELL DISTRIBUTION WIDTH 12.8 % (12.0-15.0); WHITE BLOOD COUNT 4.3 x10^3/uL (4.8-10.8)
[2020-02-28 14:38] LABS: PT - PROTHROMBIN TIME 11.5 secs (9.9-12.6)
[2020-02-28 14:44] LABS: ALBUMIN 4.1 g/dL (3.2-5.5); ALBUMIN/GLOBULIN RATIO 1.4 (1.0-2.2); BILIRUBIN,TOTAL 0.7 mg/dL (0.2-1.0); CALCIUM 9.5 mg/dL (8.5-10.3); CREATININE 1.1 mg/dL (0.6-1.2)
--- NOTE | 2020-02-28 14:50 | XRAY Report ---
PROCEDURE: Chest 1 View X-Ray INDICATIONS: chest pain TECHNIQUE: One view of the chest was acquired. COMPARISON: Chest x-ray examination dated 10.04.19 FINDINGS: Surgical changes and devices: Median sternotomy. Lungs and pleura: No pleural effusions or pneumotho rax. Lungs are clear. Mediastinum: Mediastinal contours appear normal. Heart size is normal. Bones and chest wall: No suspicious bony lesions. Overlying soft tissues appear unremarkable. IMPRESSION: No acute process. Reviewed by: Cecilia Stallings MD on 02/28/2020 2:49 PM PDT Approved by: Cecilia Stallings MD on 02/28/2020 2:49 PM PDT Station ID: [id number]
[2020-02-28 17:06] VITALS: BP 109/65
== END 2020-02-28 17:05 | disposition home or self-care (01) ==
LOC: EDUNIT# → ED 14:01
DX: R07.9 Chest pain, unspecified (principal); I25.10 Atherosclerotic heart disease of native coronary artery without angina pectoris; I10 Essential (primary) hypertension
CPT/HCPCS: 36415; 71045; 80053; 83690; 84484; 85025; 85610; 93005; 99284

== ENCOUNTER 2020-11-03 15:37 | Outpatient (CLI) | payer MEDICARE, OTHER ==
--- NOTE | 2020-11-03 16:13 | SLEEP CARE CONSULTATION ---
Information from patient questionnaire entered by Darrion Garcia. I have reviewed and concur with the information entered by Darrion Garcia. This document represents the service I personally performed and the decisions made by me, Kim Pike ARNP. History of Present Illness Service Date and Time: 11/03/2020 1537 Previous diagnosis: Severe, Obstructive Sleep Apnea-Hypopnea Syndrome AHI: 52 Reason for follow up: annual (Last seen 10/2019) Equipment type: CPAP Equipment obtained from: Other ([email or web address]; he did once and has no problems) Mask style: Nasal ([employer] - told could not get from [facility]) Backup mask available: Yes (old mask) Last cushion change: maybe 8 months Year and Where[facility] [place] [facility] HPI additional information: [place] was diagnosed to have severe, AHI 52.0, obstructive sleep apnea- hypopnea syndrome and returned today with spouse for CPAP therapy annual follow- up. CPAP Compliance Data - Data Reviewed with Patient Average duration of nightly device use: 7 hours 26 minutes Compliance rate %: 100 Current pressure setting (cmH2O): 6 Average residual AHI: 2.2 Central apnea: 1.0 Obstructive apnea: 0.2 Subjective Patient concerns: reports: nasal congestion, epistaxis (just every now and then gets some blood on tissue or a scab). denies: aerophagia, mask discomfort, air blowing in eyes, mask leak noise, condensation in mask/hose, dry mouth, nose, throat, other Observed to snore while using device: No Current pressure setting perceived as: comfortable On therapy, patient: reports: sleeping better, awakening more refreshed, being more awake and alert during the day, more rested overall. denies: drowsiness while driving (he doesn't drive as much anymore) Initial [place] Sleepiness Scale score: 6 (in 2005) Current [place] Sleepiness Scale score: 9 (has to get up several times a night for bathroom, interrupts sleep) Allergies and Home Medications Drug allergies reviewed: Yes (many) Home medication list reviewed: Yes (new BP medication, can't remember name) Review of Systems Review of systems same as previous: Yes (no changes) Physical Exam Heart Rate: 69 O2 Saturation: 98 Height: 5 ft 11 in Weight: 168 lb Body Mass Index: 23.4 BMI Classification: Healthy weight Impression and Plan 1. Obstructive Sleep Apnea-Hypopnea Syndrome, severe, with good treatment compliance and good apnea control. On CPAP therapy, the patient has better sleep quality and is more rested overall. He has chronic nasal congestion and likes the mask he uses which helps him breathe better during the night. He has tried nasal saline rinses without much improvement of congestion. He has also tried to increase the humidity setting. Nasal congestion can be reduced with increasing the CPAP humidity as shown on sample device. The heated hose can be adjusted higher if condensation with higher humidity setting. He has had minimal blood on tissue but no flowing bloody noses but this is not regular. He has not other concerns or issues today. Patient's apnea severity and rationale for treatment to reduce apnea, improve sleep quality and reduce cardiovascular and cerebrovascular events was reviewed. I also reviewed the benefit of consistent device use of CPAP for hypertension. * Continue autoCPAP pressure at 6 cmH2O * Notify me if snoring with mask or feeling that the pressure is too much or too little * Maintain a healthy weight * Call this office if any problems using CPAP * Return for follow up in 1 year, or sooner if concerns arise Counseling Topics: Spare mask, Weight loss health impact Visit Type: In Office Other Participants: Spouse/Significant Other Time Spent with Patient (minutes): 23 Provider Statement: I spent 100% of the Face to Face Visit with the patient with greater than 50% spent counseling the patient and coordination of care.
== END 2020-11-03 15:38 | disposition home or self-care (01) ==
LOC: SC 15:37
PROVIDERS: ATTEND Nurse Practitioner Family
DX: G47.33 Obstructive sleep apnea (adult) (pediatric) (principal)
CPT/HCPCS: 99213; G0463; 99212

== ENCOUNTER 2021-03-27 09:41 | Emergency (ER) | payer MEDICARE, OTHER ==
[2021-03-27] MEDS ORDERED: SODIUM CHLORIDE 0.9% 1,000 ML IV STA (10:03)
--- NOTE | 2021-03-27 10:06 | ED Physician Documentation ---
History of Present Illness - Stated complaint Stated Complaint: ABD PX - Chief complaint Chief Complaint: Abd Pain - History obtained from History obtained from: Patient, Family () - Additonal information Additional information: 89-year-old man with a history of IBS presents with diarrhea last week and constipation for 5 days followed by a stringy bowel movement yesterday as well as left lower quadrant abdominal pain that at its worst is a 6 out of 10 and currently is 0 out of 10 after taking Tylenol. Pain was gradual in onset about 2 days ago, localized to the left lower quadrant and radiating to the back, aching quality, relieved with tylenol. denies urinary sx, fever, nausea. covid vaccinated in november and has been having loose stools and constipation on and off for months. Review of Systems Ten Systems: 10 systems reviewed and negative Constitutional: denies: Fever, Chills GI: reports: Abdominal Pain, Constipation, Diarrhea. denies: Nausea, Bloody / black stool : denies: Dysuria Musculoskeletal: reports: Back pain PD PAST MEDICAL HISTORY - Past Medical History Cardiovascular: Hypertension, High cholesterol, Coronary artery disease, Atrial fibrillation, Arrhythmia Respiratory: Sleep apnea, CPAP use Neuro: None Endocrine/Autoimmune: None GI: GERD, Hiatal hernia, Diverticulitis : Kidney stones HEENT: None Psych: None Musculoskeletal: Osteoarthritis, Fatigue, Other Derm: Other - Past Surgical History Past Surgical History: Yes General: Colonoscopy, EGD Ortho: Other Cardiovascular: CABG, Coronary stent HEENT: Cataracts, Tonsil/Adenoidectomy - Present Medications Home Medications: Ambulatory Orders Medication Instructions Recorded Confirmed Latanoprost 0.005% Ophth Drops 1 drops RIGHTEYE QPM 12/27/12 03/27/21 [Xalatan Ophth Drops] Magnesium 500 mg PO QDDINNER 12/27/12 03/27/21 [place]-3 Fatty Acids/Fish Oil [Fish 500 mg PO QDBREAKFAST 12/27/12 03/27/21 Oil 1,000 mg Capsule] Cyanocobalamin (Vitamin B-12) 1,000 mcg IM .TWICE MONTHLY 06/16/15 03/27/21 [Cyanocobalamin Injection] Metoprolol Succinate 50 mg PO DAILY 11/09/17 03/27/21 Aspirin [Aspirin EC] 81 mg PO 1800 11/10/17 03/27/21 Betaxolol HCl [Betaxolol HCl 0.5%] 1 drops EACHEYE BID 11/10/17 03/27/21 Calcium Carbonate [Tums (Calcium 1,000 mg PO PRN PRN 11/10/17 03/27/21 Carbonate 500mg)] Cholecalciferol (Vitamin D3) 2,000 units PO QDDINNER 11/10/17 03/27/21 [Vitamin D3] Vit A/Vit C/Vit E/Zinc/Copper 2 cap PO QDDINNER 11/10/17 03/27/21 [Preservision Areds Softgel] Clopidogrel [Plavix] 75 mg PO DAILY 06/06/18 03/27/21 Acetaminophen [Tylenol] 650 mg PO DAILY 08/02/19 03/27/21 Ezetimibe 10 mg PO DAILY 08/02/19 03/27/21 Ascorbyl Palmitate 500 mg PO QDBREAKFAST 10/05/19 03/27/21 Calcium Carbonate [Tums (Calcium 1,000 mg PO DAILY 10/05/19 10/05/19 Carbonate 500mg)] Digestive 8/L.acidoph/Pectin 1 each PO BID 10/05/19 03/27/21 [Digestive Enzymes Tablet] Famotidine [Pepcid AC] 10 mg PO BID 10/05/19 03/27/21 Grape Seed Extract [Meganatural-Bp] 250 mg PO QDDINNER 10/05/19 03/27/21 Propylene Glycol/Peg 400 [Systane 1 drops EACHEYE TID PRN 10/05/19 03/27/21 Ultra 0.4-0.3% Eye Drp] Saccharomyces Boulardii [Florastor] 250 mg PO QDBREAKFAST 10/05/19 03/27/21 Vitamin K2 [Menauinone-7] 100 mcg PO QDDINNER 10/05/19 03/27/21 Inhaler, Assist Devices 1 each MC QID PRN #1 spacer 10/06/19 03/27/21 [Breatherite] Levalbuterol [Xopenex] 1 puffs INH Q4-6H PRN #1 inhaler 10/06/19 03/27/21 Isosorbide Mononitrate [Isosorbide 30 mg PO DAILY 03/27/21 03/27/21 Mononitrate ER] Losartan Potassium 25 mg PO DAILY 03/27/21 03/27/21 Nitroglycerin [Nitrostat] 0.4 mg SL Q5MIN PRN 03/27/21 03/27/21 - Allergies Allergies/Adverse Reactions: Allergies Allergy/AdvReac Type Severity Reaction Status Date / Time Sulfa (Sulfonamide Allergy Intermediate Hives Verified 03/27/21 09:50 Antibiotics) lansoprazole [From Prevacid] Allergy Mild Diarrhea Verified 03/27/21 09:50 Xnmbmat-Veb-Kjj Reductase Allergy Mild Indigestion/Chest Verified 03/27/21 09:50 Inhibitor pain tetracycline [Tetracycline] Allergy Mild Unknown Verified 03/27/21 09:50 tree nut Allergy Mild Unknown Verified 03/27/21 09:50 diphenhydramine HCl * AdvReac Mild A-fib Verified 03/27/21 09:50 [From Benadryl] egg AdvReac Mild Indigestion Verified 03/27/21 09:50 oats AdvReac Mild Indigestion Verified 03/27/21 09:50 amlodipine AdvReac Rash Verified 03/27/21 09:50 gluten AdvReac Cramps Verified 03/27/21 09:50 ibuprofen [From Advil] AdvReac Rash Verified 03/27/21 09:50 - Social History Does the pt smoke?: No Smoking Status: Never smoker Does the pt drink ETOH?: Yes Does the pt have substance abuse?: No - Immunizations Immunizations are current?: Yes - POLST Patient has POLST: No PD ED PE NORMAL - Vitals Vital signs reviewed: Yes - General General: Alert and oriented X 3, No acute distress, Well developed/nourished - HEENT HEENT: Atraumatic, PERRL, EOMI - Neck Neck: Supple, no meningeal sign - Cardiac Cardiac: RRR - Respiratory Respiratory: No respiratory distress, Clear bilaterally - Abdomen Abdomen: Non tender, Non distended, Other (discomfort to LLQ palpation) - Rectal Rectal: Other (brown stool) - Back Back: No CVA TTP - Derm Derm: Normal color - Extremities Extremities: No deformity - Neuro Neuro: No motor deficit, No sensory deficit - Psych Psych: Normal mood, Normal affect Results - Vitals Vitals: Vital Signs - 24 hr 03/27/21 03/27/21 03/27/21 09:50 10:07 10:56 Temperature 36.6 C Heart Rate 80 76 66 Respiratory 18 16 16 Rate Blood Pressure 215/102 H 191/80 H 174/68 H O2 Saturation 100 97 97 Oxygen O2 Source Room air - Labs Labs: Laboratory Tests 03/27/21 03/27/21 03/27/21 10:00 10:00 11:20 WBC 9.6 RBC 4.35 L Hgb 13.6 L Hct 40.8 L MCV 93.8 MCH 31.3 H MCHC 33.3 RDW 12.9 Plt Count 246 MPV 9.0 Neut # (Auto) 4.9 Lymph # (Auto) 3.3 [place] # (Auto) 1.2 H Eos # (Auto) 0.1 Baso # (Auto) 0.1 Absolute Nucleated RBC 0.00 Nucleated RBC % 0.0 Sodium 135 Potassium 4.4 Chloride 98 L Carbon Dioxide 28 Anion Gap 9.0 BUN 15 Creatinine 1.1 Estimated GFR (MDRD) 63 L Glucose 107 H Calcium 9.9 Total Bilirubin 0.7 AST 23 ALT 17 Alkaline Phosphatase 120 Total Protein 7.8 Albumin 4.0 Globulin 3.8 Albumin/Globulin Ratio 1.1 Lipase 48 Urine Color YELLOW Urine Clarity CLEAR Urine pH 7.0 Ur Specific [place] 1.015 Urine Protein NEGATIVE Urine Glucose (UA) NEGATIVE Urine Ketones NEGATIVE Urine Occult Blood NEGATIVE Urine Nitrite NEGATIVE Urine Bilirubin NEGATIVE Urine Urobilinogen 0.2 (NORMAL) Ur Leukocyte Esterase NEGATIVE Ur Microscopic Review NOT INDICATED Urine Culture Comments NOT INDICATED PD MEDICAL DECISION MAKING - ED course ED course: 89-year-old man with IBS presents with abdominal pain, diarrhea and constipation. Will obtain lab work and CT to evaluate further. Declining pain medication or nausea medication at present as he is asymptomatic. d/w patient and need For follow-up CT of the chest in 1 month. He states that he has a chronic cough but is not experiencing any shortness of breath, chest pain or fevers. He does aspirate food frequently. Patient will follow up with his primary doctor in regards to this and have the CT ordered. Return precautions given. Departure - Departure Disposition: 01 Home, Self Care Clinical Impression: Abdominal pain, Back pain Condition: Good Instructions: ED Abdominal Pain Unkn Cause Comments: You were seen in the emergency department for abdominal and back pain. Your labwork and CT did not show concerning findings in the abdomen. Your CT did show abnormal findings in the left lower lung field and the radiologist recommends that you have a follow-up CT of the chest in 1 month. Please follow-up with your primary doctor in regards to these findings and return to the emergency department you have any new or worsening symptoms or other concerns.
[2021-03-27 10:08] LABS: BASOPHILS # (AUTO) 0.1 10^3/uL (0.0-0.1); BASOPHILS % (AUTO) 0.5 %; EOSINOPHILS # (AUTO) 0.1 10^3/uL (0.0-0.7); EOSINOPHILS % (AUTO) 1.4 %; HCT - HEMATOCRIT 40.8 % (42.0-52.0); HGB - HEMOGLOBIN 13.6 g/dL (14.0-18.0); LYMPHOCYTES # (AUTO) 3.3 10^3/uL (1.5-3.5); LYMPHOCYTES % (AUTO) 34.4 %; MEAN CORPUSCULAR HEMOGLOBIN 31.3 pg (27.0-31.0); MEAN CORPUSCULAR HGB CONC 33.3 g/dL (32.0-36.0); MEAN CORPUSCULAR VOLUME 93.8 fL (80.0-94.0); MONOCYTES # (AUTO) 1.2 10^3/uL (0.0-1.0); MONOCYTES % (AUTO) 12.5 %; NEUTROPHILS # (AUTO) 4.9 10^3/uL (1.5-6.6); PLT - PLATELET COUNT 246 10^3/uL (130-450); RED BLOOD COUNT 4.35 10^6/uL (4.70-6.10); RED CELL DISTRIBUTION WIDTH 12.9 % (12.0-15.0); WHITE BLOOD COUNT 9.6 x10^3/uL (4.8-10.8)
[2021-03-27] MEDS ORDERED: IOPAMIDOL-300 100 ML VIAL ONE (10:18)
[2021-03-27 10:22] LABS: ALBUMIN/GLOBULIN RATIO 1.1 (1.0-2.2); BILIRUBIN,TOTAL 0.7 mg/dL (0.2-1.0); CALCIUM 9.9 mg/dL (8.5-10.3); CREATININE 1.1 mg/dL (0.6-1.2); POTASSIUM 4.4 mmol/L (3.5-5.0); TOTAL PROTEIN 7.8 g/dL (6.7-8.2)
--- NOTE | 2021-03-27 11:09 | CT Report ---
PROCEDURE: Abdomen/Pelvis W INDICATIONS: Abdominal pain, acute, nonlocalized CONTRAST: IV CONTRAST: Isovue 300 ml: 100 PO CONTRAST: *NO PO CONTRAST TECHNIQUE: After the administration of IV contrast, 5 mm thick sections acquired from the diaphragms to the symp hysis. 5 mm thick coronal and sagittal reformats were acquired. For radiation dose reduction, the f ollowing was used: automated exposure control, adjustment of mA and/or kV according to patient size. COMPARISON: CT dated 12/31/2013 FINDINGS: Image quality: Excellent. ABDOMEN: Lung bases: There is new multifocal ill-defined patchy nodular opacity within the left lung base, lar gest of which is posterior medial, measuring 9 mm diameter. Finding is most suggestive of an infectio us or inflammatory etiology. Heart size is normal. Solid organs: Liver and spleen are normal in size and enhancement. Gallbladder is grossly unremarka ble Biliary system is non dilated. Pancreas enhances normally. No adrenal nodules. Kidneys demons trate normal size and enhancement, without hydronephrosis. Peritoneum and bowel: Bowel loops demonstrate normal wall thickness and caliber. No free fluid or a ir. Normal appendix. Nodes and vessels: No retroperitoneal or mesenteric adenopathy by size criteria. Aorta and inferior vena cava are normal in size. Miscellaneous: No ventral hernias. 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 This is unchanged. Bladder wall thickness is otherwise normal. Multiple radiation therapy prostate seeds are present. Miscellaneous: No inguinal hernias or adenopathy. Bones: No suspicious bony lesions. No vertebral body compression fractures. IMPRESSION: 1. No acute intra-abdominal process. 2. Findings suggestive of mild multifocal patchy left lower lobe pneumonia. Follow-up chest CT with i ntravenous contrast in one month is recommended to ensure resolution, and to exclude underlying neopl asm. 3. Normal appendix. 4. Right urinary bladder diverticulum. Reviewed by: Cecilia Stallings MD on 03/27/2021 10:08 AM COOKIE Approved by: Cecilia Stallings MD on 03/27/2021 10:08 AM COOKIE Station ID: [id number]
[2021-03-27 11:31] LABS: BILIRUBIN,URINE NEGATIVE (NEGATIVE); GLUCOSE, URINE (UA) NEGATIVE (NEGATIVE); KETONES,URINE (UA) NEGATIVE (NEGATIVE); LEUKOCYTE ESTERASE, URINE NEGATIVE (NEGATIVE); NITRITE,URINE NEGATIVE (NEGATIVE); OCCULT BLOOD,URINE NEGATIVE (NEGATIVE); PROTEIN,URINE NEGATIVE (NEGATIVE); UROBILINOGEN,URINE 0.2 (NORMAL) E.U./dL (NORMAL)
[2021-03-27 11:38] LABS: CLARITY,URINE CLEAR (CLEAR)
[2021-03-27 12:19] VITALS: BP 160/74
== END 2021-03-27 12:24 | disposition home or self-care (01) ==
LOC: ED 09:41
DX: R10.32 Left lower quadrant pain (principal); M54.9 Dorsalgia, unspecified; I10 Essential (primary) hypertension; I48.91 Unspecified atrial fibrillation
CPT/HCPCS: 36415; 74177; 80053; 81003; 83690; 85025; 99284; Q9967; 81001; 87086

== ENCOUNTER 2021-05-01 10:53 | Outpatient (CLI) | payer MEDICARE, OTHER ==
--- NOTE | 2021-05-01 13:24 | CT Report ---
PROCEDURE: CHEST WO INDICATIONS: ABNL CHEST CT LOWER RIGHT, LOWER LEFT ABNL CT TECHNIQUE: Noncontrast images were acquired from the pulmonary apices to the posterior costophrenic angles. Mul tiplanar MIP reformats were then acquired. For radiation dose reduction, the following was used: au tomated exposure control, adjustment of mA and/or kV according to patient size. COMPARISON: 09/25/2019 Correlation is made with the overlapping portions of prior abdomen and pelvis CT, 03/27/2021. FINDINGS: Image quality: Excellent. Lungs and pleura: Bilateral patchy interstitial type infiltrates are seen, which are improved compare d to the 09/25/2019 CT examination. No sebas new pulmonary nodules are seen. No pleural effusions or p neumothorax. Central and peripheral airways are patent and normal in caliber. Mediastinum: Mediastinal clips are seen. Coronary stents and coronary artery calcification can be see n. Heart size is normal. No pericardial effusion. No mediastinal adenopathy by size criteria. Thor acic aorta and central pulmonary arteries are normal in size. Esophagus is normal in caliber. There is a small hiatal hernia. Bones and chest wall: Sternotomy changes are noted. No suspicious bony lesions. No vertebral body compression fractures. Age-appropriate degenerative changes are seen. There is accentuated thoracic kyphosis. No axillary or supraclavicular adenopathy by size criteria. The thyroid is normal in s ize and there are no incidental findings. Abdomen: Visualized upper abdominal solid organs and bowel loops appear normal in the absence of con trast. IMPRESSION: Patchy bilateral infiltrates are seen, which are improved compared to the prior chest CT dated 020. These are felt most likely to be related to chronic infection. Please consider a follow-up chest CT in 3-6 months for further evaluation. Incidental note is made of: Coronary artery stents Coronary artery calcification Post CABG change Small hiatal hernia Reviewed by: Minor Cortez MD on 05/01/2021 12:23 PM COOKIE Approved by: Minor Cortez MD on 05/01/2021 12:23 PM COOKIE Station ID: [id number]
== END 2021-05-01 10:54 | disposition home or self-care (01) ==
LOC: DI 10:53
PROVIDERS: ATTEND Internal Medicine
DX: R91.8 Other nonspecific abnormal finding of lung field (principal)

== ENCOUNTER 2021-05-17 19:59 | Outpatient (CLI) | payer MEDICARE, OTHER | END 2021-05-17 20:00 | disposition critical access hospital (66) | LOC: EMS 19:59 | DX: R07.9 Chest pain, unspecified (principal) | CPT/HCPCS: A0425; A0427 ==

== ENCOUNTER 2021-05-17 20:11 | Inpatient (IN) | payer MEDICARE, OTHER ==
[2021-05-17 20:31] LABS: BASOPHILS % (AUTO) 0.5 %; EOSINOPHILS # (AUTO) 0.2 10^3/uL (0.0-0.7); EOSINOPHILS % (AUTO) 2.7 %; HCT - HEMATOCRIT 38.3 % (42.0-52.0); HGB - HEMOGLOBIN 12.7 g/dL (14.0-18.0); LYMPHOCYTES # (AUTO) 2.3 10^3/uL (1.5-3.5); MEAN CORPUSCULAR HEMOGLOBIN 31.1 pg (27.0-31.0); MEAN CORPUSCULAR HGB CONC 33.2 g/dL (32.0-36.0); MEAN CORPUSCULAR VOLUME 93.6 fL (80.0-94.0); MONOCYTES % (AUTO) 13.3 %; NEUTROPHILS # (AUTO) 4.2 10^3/uL (1.5-6.6); NEUTROPHILS % (AUTO) 54.2 %; PLT - PLATELET COUNT 236 10^3/uL (130-450); RED BLOOD COUNT 4.09 10^6/uL (4.70-6.10); RED CELL DISTRIBUTION WIDTH 12.8 % (12.0-15.0); WHITE BLOOD COUNT 7.8 x10^3/uL (4.8-10.8)
--- NOTE | 2021-05-17 20:43 | XRAY Report ---
PROCEDURE: Chest 1 View X-Ray INDICATIONS: Chest pain TECHNIQUE: One view of the chest was acquired. COMPARISON: Chest x-ray 02/28/2020 FINDINGS: Surgical changes and devices: Sternal wires. Lungs and pleura: No pleural effusions or pneumothorax. Mild coarsened bibasilar opacities. Mediastinum: Mediastinal contours appear normal. Heart size is normal. Bones and chest wall: No suspicious bony lesions. Overlying soft tissues appear unremarkable. IMPRESSION: Mild coarsened bibasilar opacities suggestive of dependent change/edema. Reviewed by: Juana Cherry MD on 05/17/2021 8:41 PM PDT Approved by: Juana Cherry MD on 05/17/2021 8:41 PM PDT Station ID: [id number]
[2021-05-17 20:51] LABS: ALBUMIN 3.6 g/dL (3.2-5.5); ALBUMIN/GLOBULIN RATIO 0.9 (1.0-2.2); BILIRUBIN,TOTAL 0.6 mg/dL (0.2-1.0); CALCIUM 9.5 mg/dL (8.5-10.3); POTASSIUM 4.1 mmol/L (3.5-5.0); TOTAL PROTEIN 7.6 g/dL (6.7-8.2)
--- NOTE | 2021-05-17 21:49 | ED Physician Documentation ---
PD HPI CHEST PAIN - Stated complaint Stated Complaint: CP - Chief complaint Chief Complaint: Cardiac - History obtained from History obtained from: Patient - History of Present Illness Timing - onset: Enter time (15:00), Today Timing - details: Abrupt onset, Intermittant Pain level max: 7 Pain level now: 1 Quality: Pain Location: Substernal Radiation: Left upper extremity Improved by: Other (some episodes have distinct positional component (improved/resolve with simply standing up)) Associated symptoms: No: Shortness of air, Diaphoresis, Nausea, Vomiting, Feeling faint / dizzy, General Weakness, Palpitations Recently seen: Not recently seen - Additional information Additional information: presents c/o episodic chest pain. 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 Today at 3 PM , he had chest pain while pushing a grocery cart and he felt this was more severe and was with less provocation than his typical angina. He had relief with SLNTG. He had two more episodes since then including onset at rest which seemed to resolve simply by standing up, and then an episode tonight that did not respond to SLNTG x 2, which he says is also not typical for him. However, his chest pain has nearly resolved by the time of this H+P (he says it is "maybe one, maybe it's not even there any more"). His loss prevention manager is Dr. Olvera. Danielle rincon has h/o cardiac stents, most recent was 2016 Review of Systems Constitutional: reports: Reviewed and negative Cardiac: reports: Chest pain / pressure. denies: Palpitations, Pedal edema, Calf pain Respiratory: reports: Reviewed and negative GI: reports: Reviewed and negative Musculoskeletal: denies: Extremity swelling Neurologic: denies: Generalized weakness PD PAST MEDICAL HISTORY - Past Medical History Past Medical History: Yes Cardiovascular: Hypertension, High cholesterol, Coronary artery disease, Atrial fibrillation, Arrhythmia Respiratory: Sleep apnea, CPAP use Neuro: None Endocrine/Autoimmune: None GI: GERD, Hiatal hernia, Diverticulitis : Kidney stones HEENT: None Psych: None Musculoskeletal: Osteoarthritis, Fatigue, Other Derm: Other - Past Surgical History Past Surgical History: Yes General: Colonoscopy, EGD Ortho: Other Cardiovascular: CABG, Coronary stent HEENT: Cataracts, Tonsil/Adenoidectomy - Present Medications Home Medications: Ambulatory Orders Medication Instructions Recorded Confirmed Latanoprost 0.005% Ophth Drops 1 drops RIGHTEYE QPM 12/27/12 03/27/21 [Xalatan Ophth Drops] Magnesium 500 mg PO QDDINNER 12/27/12 03/27/21 [place]-3 Fatty Acids/Fish Oil [Fish 500 mg PO QDBREAKFAST 12/27/12 03/27/21 Oil 1,000 mg Capsule] Cyanocobalamin (Vitamin B-12) 1,000 mcg IM .TWICE MONTHLY 06/16/15 03/27/21 [Cyanocobalamin Injection] Metoprolol Succinate 50 mg PO DAILY 11/09/17 03/27/21 Aspirin [Aspirin EC] 81 mg PO 1800 11/10/17 03/27/21 Betaxolol HCl [Betaxolol HCl 0.5%] 1 drops EACHEYE BID 11/10/17 03/27/21 Calcium Carbonate [Tums (Calcium 1,000 mg PO PRN PRN 11/10/17 03/27/21 Carbonate 500mg)] Cholecalciferol (Vitamin D3) 2,000 units PO QDDINNER 11/10/17 03/27/21 [Vitamin D3] Vit A/Vit C/Vit E/Zinc/Copper 2 cap PO QDDINNER 11/10/17 03/27/21 [Preservision Areds Softgel] Clopidogrel [Plavix] 75 mg PO DAILY 06/06/18 03/27/21 Acetaminophen [Tylenol] 650 mg PO DAILY 08/02/19 03/27/21 Ezetimibe 10 mg PO DAILY 08/02/19 03/27/21 Ascorbyl Palmitate 500 mg PO QDBREAKFAST 10/05/19 03/27/21 Calcium Carbonate [Tums (Calcium 1,000 mg PO DAILY 10/05/19 10/05/19 Carbonate 500mg)] Digestive 8/L.acidoph/Pectin 1 each PO BID 10/05/19 03/27/21 [Digestive Enzymes Tablet] Famotidine [Pepcid AC] 10 mg PO BID 10/05/19 03/27/21 Grape Seed Extract [Meganatural-Bp] 250 mg PO QDDINNER 10/05/19 03/27/21 Propylene Glycol/Peg 400 [Systane 1 drops EACHEYE TID PRN 10/05/19 03/27/21 Ultra 0.4-0.3% Eye Drp] Saccharomyces Boulardii [Florastor] 250 mg PO QDBREAKFAST 10/05/19 03/27/21 Vitamin K2 [Menauinone-7] 100 mcg PO QDDINNER 10/05/19 03/27/21 Inhaler, Assist Devices 1 each MC QID PRN #1 spacer 10/06/19 03/27/21 [Breatherite] Levalbuterol [Xopenex] 1 puffs INH Q4-6H PRN #1 inhaler 10/06/19 03/27/21 Isosorbide Mononitrate [Isosorbide 30 mg PO DAILY 03/27/21 03/27/21 Mononitrate ER] Losartan Potassium 25 mg PO DAILY 03/27/21 03/27/21 Nitroglycerin [Nitrostat] 0.4 mg SL Q5MIN PRN 03/27/21 03/27/21 - Allergies Allergies/Adverse Reactions: Allergies Allergy/AdvReac Type Severity Reaction Status Date / Time Sulfa (Sulfonamide Allergy Intermediate Hives Verified 05/17/21 20:17 Antibiotics) lansoprazole [From Prevacid] Allergy Mild Diarrhea Verified 05/17/21 20:17 Trphtim-Ejx-Spl Reductase Allergy Mild Indigestion/Chest Verified 05/17/21 20:17 Inhibitor pain tetracycline [Tetracycline] Allergy Mild Unknown Verified 05/17/21 20:17 tree nut Allergy Mild Unknown Verified 05/17/21 20:17 diphenhydramine HCl * AdvReac Mild A-fib Verified 05/17/21 20:17 [From Benadryl] egg AdvReac Mild Indigestion Verified 05/17/21 20:17 oats AdvReac Mild Indigestion Verified 05/17/21 20:17 amlodipine AdvReac Rash Verified 05/17/21 20:17 gluten AdvReac Cramps Verified 05/17/21 20:17 ibuprofen [From Advil] AdvReac Rash Verified 05/17/21 20:17 - Social History Does the pt smoke?: No Smoking Status: Never smoker Does the pt drink ETOH?: Yes Does the pt have substance abuse?: No - Immunizations Immunizations are current?: Yes - POLST Patient has POLST: No PD ED PE NORMAL - Vitals Vital signs reviewed: Yes - General General: Alert and oriented X 3, No acute distress, Well developed/nourished - Neck Neck: Supple, no meningeal sign - Cardiac Cardiac: RRR, No murmur - Respiratory Respiratory: No respiratory distress, Clear bilaterally - Abdomen Abdomen: Soft, Non tender - Derm Derm: Normal color, Warm and dry - Extremities Extremities: No edema Results - Vitals Vitals: Vital Signs - 24 hr 05/17/21 05/17/21 05/17/21 20:17 20:37 22:20 Temperature 36.0 C L Heart Rate 80 94 89 Respiratory 15 17 18 Rate Blood Pressure 205/100 H 189/74 H 175/104 H O2 Saturation 99 98 98 05/18/21 05/18/21 00:00 02:00 Temperature Heart Rate 68 68 Respiratory 18 18 Rate Blood Pressure 156/78 H 181/92 H O2 Saturation 99 98 Oxygen O2 Source Room air - EKG (time done) No standard instances Rate: Rate (enter#) (77) Rhythm: NSR [place]: Normal Intervals: Normal [place] QRS: Normal Ischemia: Normal ST segments - Labs Labs: Laboratory Tests 05/17/21 05/17/21 05/17/21 20:27 20:27 20:27 WBC 7.8 RBC 4.09 L Hgb 12.7 L Hct 38.3 L MCV 93.6 MCH 31.1 H MCHC 33.2 RDW 12.8 Plt Count 236 MPV 9.0 Neut # (Auto) 4.2 Lymph # (Auto) 2.3 [place] # (Auto) 1.0 Eos # (Auto) 0.2 Baso # (Auto) 0.0 Absolute Nucleated RBC 0.00 Nucleated RBC % 0.0 Sodium 135 Potassium 4.1 Chloride 95 L Carbon Dioxide 31 Anion Gap 9.0 BUN 14 Creatinine 1.0 Estimated GFR (MDRD) 70 L Glucose 117 H Calcium 9.5 Total Bilirubin 0.6 AST 18 ALT 14 Alkaline Phosphatase 107 Troponin I High Sens 10.3 B-Natriuretic Peptide Total Protein 7.6 Albumin 3.6 Globulin 4.0 Albumin/Globulin Ratio 0.9 L Lipase 37 Nasal Adenovirus (PCR) Nasal B. parapertussis DNA (PCR) Nasal Coronavir 229E PCR Nasal Coronavir HKU1 PCR Nasal Coronavir NL63 PCR Nasal Coronavir OC43 PCR Nasal Enterovir/Rhinovir PCR Nasal Influenza B PCR Nasal Influenza A PCR Nasal Parainfluen 1 PCR Nasal Parainfluen 2 PCR Nasal Parainfluen 3 PCR Nasal Parainfluen 4 PCR Nasal RSV (PCR) Nasal B.pertussis DNA PCR Nasal C.pneumoniae (PCR) [place] Human Metapneumo PCR Nasal M.pneumoniae (PCR) Nasal SARS-CoV-2 (PCR) 05/17/21 05/17/21 05/18/21 20:27 23:01 02:00 WBC RBC Hgb Hct MCV MCH MCHC RDW Plt Count MPV Neut # (Auto) Lymph # (Auto) [place] # (Auto) Eos # (Auto) Baso # (Auto) Absolute Nucleated RBC Nucleated RBC % Sodium Potassium Chloride Carbon Dioxide Anion Gap BUN Creatinine Estimated GFR (MDRD) Glucose Calcium Total Bilirubin AST ALT Alkaline Phosphatase Troponin I High Sens 15.4 B-Natriuretic Peptide 99 Total Protein Albumin Globulin Albumin/Globulin Ratio Lipase Nasal Adenovirus (PCR) NOT DETECTED Nasal B. parapertussis DNA (PCR) NOT DETECTED Nasal Coronavir 229E PCR NOT DETECTED Nasal Coronavir HKU1 PCR NOT DETECTED Nasal Coronavir NL63 PCR NOT DETECTED Nasal Coronavir OC43 PCR NOT DETECTED Nasal Enterovir/Rhinovir PCR NOT DETECTED Nasal Influenza B PCR NOT DETECTED Nasal Influenza A PCR NOT DETECTED Nasal Parainfluen 1 PCR NOT DETECTED Nasal Parainfluen 2 PCR NOT DETECTED Nasal Parainfluen 3 PCR NOT DETECTED Nasal Parainfluen 4 PCR NOT DETECTED Nasal RSV (PCR) NOT DETECTED Nasal B.pertussis DNA PCR NOT DETECTED Nasal C.pneumoniae (PCR) NOT DETECTED [place] Human Metapneumo PCR NOT DETECTED Nasal M.pneumoniae (PCR) NOT DETECTED Nasal SARS-CoV-2 (PCR) NOT DETECTED - Rads (name of study) chest xray Radiology: Prelim report reviewed, See rad report PD MEDICAL DECISION MAKING - ED course Complexity details: reviewed results, re-evaluated patient, considered differential, d/w patient ED course: reassuring tests including EKG, CXR, and blood tests that include normal troponin as well as repeat (2 hour) troponin. I discussed results with patient but when I went to discuss the repeat troponin with him, he says the chest pain has returned, 4/10 (thus not as severe as earlier episodes). I discussed this case with Dr. Olvera, patient's loss prevention manager who says patient can be admitted to [facility] for observation. D/W Dr. Reddy who accepts patient to [facility]. Departure - Departure Disposition: ED Place in Observation Clinical Impression: Chest pain Condition: Good Discharge Date/Time: 05/18/21 02:58
[2021-05-18] MEDS ORDERED: ASPIRIN CHEW 81 MG TABLET PO ONE (02:15)
[2021-05-18] MEDS ORDERED: MORPHINE 2 MG/ML CARPUJECT IVP PRN (02:15)
[2021-05-18] MEDS ORDERED: SODIUM CHLORIDE FLUSH 0.9% 10 ML SYRINGE IVP PRN (02:19)
[2021-05-18] MEDS ORDERED: ACETAMINOPHEN 325 MG TABLET PO PRN (02:19)
[2021-05-18] MEDS ORDERED: ONDANSETRON ODT 4 MG TABLET TL PRN (02:19)
[2021-05-18] MEDS ORDERED: FUROSEMIDE 40 MG/4 ML VIAL IVP ONE (02:19)
--- NOTE | 2021-05-18 02:50 | HISTORY & PHYSICAL EXAMINATION ---
History and Physical - History and Physical Chief complaint: Chest pain Source of history: ER signout, patient, medical record review History of present illness: The patient is a pleasant 89-year-old white male with past medical history of coronary artery disease, status post coronary artery bypass graft and stenting who is a good historian and describes still having coronary artery blockage which was not stentable and he was advised to "leave it" or seek evaluation in [place] for possible stenting. Patient describes that he has what he calls "stable angina". He always has chest pain usually once a week. Chest pain is usually exertional and gets better at rest. Patient also describes GI symptoms, he often has reflux-like symptoms and also has history of irritable bowel syndrome. About a month ago he noted increasing frequency of chest pain, longer lasting and stronger. In the past 2 or 3 days the chest pains got really frequent and occurred 2-3 times per day. The pain was 7 out of 10 intensity, mid retrosternal and in the past 24 hours radiated to the left arm. The character of the pain was similar to prior angina. On further questioning the patient describes that his chest pain is not only worse with activity but it is also worse laying down and is made worse by eating certain foods. Patient also mentions that the chest pain gets better or worse on different positions. Further, the patient confirms having history of chronic lung infiltrates which were noted during an ER visit and since then are followed by periodic imaging. Review of the medical record shows patient having interstitial bibasilar infiltrates. Last CT scan of the chest was on May 01, 2021, showed improvement of the infiltrates compared to September 25, 2019. Regarding outpatient cardiac follow-up, the patient sees a inflated pad buffer and usually goes to [facility] in [place]. He is unsure whether he had recent echocardiogram or stress test but when the studies are described he thinks he has not had any similar done recently. Upon presentation to the ER patient was found significantly hypertensive with systolic blood pressure up to the 200s. His heart rate was close to the normal range, notably he is on beta-brandon. His oxygen saturation was high 90s on room air. ER work-up was grossly unremarkable included nonischemic EKG and serial troponins twice negative. The ER physician coordinated the case with the patient's on-call inflated pad buffer sky nicole recommended patient to be admitted under observation to [facility] undergo echocardiogram and stress test if available. 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, followed with periodic imaging which has not worsened/No history of oxygen dependence Allergies Allergy/AdvReac Type Severity Reaction Status Date / Time Sulfa (Sulfonamide Allergy Intermediate Hives Verified 05/17/21 20:17 Antibiotics) lansoprazole [From Prevacid] Allergy Mild Diarrhea Verified 05/17/21 20:17 Gruucja-Fjq-Hfl Reductase Allergy Mild Indigestion/Chest Verified 05/17/21 20:17 Inhibitor pain tetracycline [Tetracycline] Allergy Mild Unknown Verified 05/17/21 20:17 tree nut Allergy Mild Unknown Verified 05/17/21 20:17 diphenhydramine HCl * AdvReac Mild A-fib Verified 05/17/21 20:17 [From Benadryl] egg AdvReac Mild Indigestion Verified 05/17/21 20:17 oats AdvReac Mild Indigestion Verified 05/17/21 20:17 amlodipine AdvReac Rash Verified 05/17/21 20:17 gluten AdvReac Cramps Verified 05/17/21 20:17 ibuprofen [From Advil] AdvReac Rash Verified 05/17/21 20:17 Outpatient medications/the below list is from prior medical records, not yet reconciled: Latanoprost 0.005% Ophth Drops [Xalatan Ophth Drops] 1 drops RIGHTEYE QPM 12/27/12 Magnesium 500 mg PO QDDINNER 12/27/12 [place]-3 Fatty Acids/Fish Oil [Fish Oil 1,000 mg Capsule] 500 mg PO QDBREAKFAST 12/27/12 Cyanocobalamin (Vitamin B-12) [Cyanocobalamin Injection] 1,000 mcg IM .TWICE MON THLY 06/16/15 Metoprolol Succinate 50 mg PO DAILY 11/09/17 Aspirin [Aspirin EC] 81 mg PO 1800 11/10/17 Betaxolol HCl [Betaxolol HCl 0.5%] 1 drops EACHEYE BID 11/10/17 Calcium Carbonate [Tums (Calcium Carbonate 500mg)] 1,000 mg PO PRN PRN 11/10/17 Cholecalciferol (Vitamin D3) [Vitamin D3] 2,000 units PO QDDINNER 11/10/17 Vit A/Vit C/Vit E/Zinc/Copper [Preservision Areds Softgel] 2 cap PO QDDINNER 11/10/17 Clopidogrel [Plavix] 75 mg PO DAILY 06/06/18 Acetaminophen [Tylenol] 650 mg PO DAILY 08/02/19 Ezetimibe 10 mg PO DAILY 08/02/19 Ascorbyl Palmitate 500 mg PO QDBREAKFAST 10/05/19 Calcium Carbonate [Tums (Calcium Carbonate 500mg)] 1,000 mg PO DAILY 10/05/19 Digestive 8/L.acidoph/Pectin [Digestive Enzymes Tablet] 1 each PO BID 10/05/19 Famotidine [Pepcid AC] 10 mg PO BID 10/05/19 Grape Seed Extract [Meganatural-Bp] 250 mg PO QDDINNER 10/05/19 Propylene Glycol/Peg 400 [Systane Ultra 0.4-0.3% Eye Drp] 1 drops EACHEYE TID PRN 10/05/19 Saccharomyces Boulardii [Florastor] 250 mg PO QDBREAKFAST 10/05/19 Vitamin K2 [Menauinone-7] 100 mcg PO QDDINNER 10/05/19 Inhaler, Assist Devices [Breatherite] 1 each MC QID PRN #1 spacer 10/06/19 Levalbuterol [Xopenex] 1 puffs INH Q4-6H PRN #1 inhaler 10/06/19 Isosorbide Mononitrate [Isosorbide Mononitrate ER] 30 mg PO DAILY 03/27/21 Losartan Potassium 25 mg PO DAILY 03/27/21 Nitroglycerin [Nitrostat] 0.4 mg SL Q5MIN PRN 03/27/21 Family history: Not pertinent to current presentation. Social history and functional status: The patient is a functional adult, lives with his . He does not drive much, his does most of the driving. He however is active and usually walks the treadmill. Recently had to reduce his physical activities due to exertional symptoms. About a month ago he could easi ly walk a block. CODE STATUS: DNR Per prior medical record, patient confirms Review of symptoms: 12 point review done, pertinent positives and negatives listed above at history present illness, there was no additional positive. Vital Signs - 24 hr 05/17/21 05/17/21 05/17/21 20:17 20:37 22:20 Temperature 36.0 C L Heart Rate 80 94 89 Heart Rate [ Brachial] Respiratory 15 17 18 Rate Blood Pressure 205/100 H 189/74 H 175/104 H Blood Pressure [Right Brachial artery] O2 Saturation 99 98 98 05/18/21 05/18/21 05/18/21 00:00 02:00 02:56 Temperature 36.5 C Heart Rate 68 68 Heart Rate [ 77 Brachial] Respiratory 18 18 18 Rate Blood Pressure 156/78 H 181/92 H Blood Pressure 176/89 H [Right Brachial artery] O2 Saturation 99 98 99 Oxygen O2 Source Room air Physical exam: General: Well-developed elderly male who complains of ongoing chest pain but otherwise is not in distress HEENT: Dry oral mucosa Respiratory: No increased work of breathing, comfortable without oxygen, good air entry throughout CVS: S1, S2, regular/Without chest wall tenderness Abdomen: Benign abdomen, bowel tones present, nontender, nondistended Neurologic: Alert, oriented; no focal lateralizing sign Psych: Cooperative. Lymph: No edema. Skin: No jaundice, no rash Musculoskeltal: No muscle tenderness or joint swelling Diagnostic work-up: Reviewed per electronic medical record Laboratory Tests 05/17/21 05/17/21 05/17/21 20:27 20:27 20:27 WBC 7.8 RBC 4.09 L Hgb 12.7 L Hct 38.3 L MCV 93.6 MCH 31.1 H MCHC 33.2 RDW 12.8 Plt Count 236 MPV 9.0 Neut # (Auto) 4.2 Lymph # (Auto) 2.3 Lawrence # (Auto) 1.0 Eos # (Auto) 0.2 Baso # (Auto) 0.0 Absolute Nucleated RBC 0.00 Nucleated RBC % 0.0 Sodium 135 Potassium 4.1 Chloride 95 L Carbon Dioxide 31 Anion Gap 9.0 BUN 14 Creatinine 1.0 Estimated GFR (MDRD) 70 L Glucose 117 H Calcium 9.5 Total Bilirubin 0.6 AST 18 ALT 14 Alkaline Phosphatase 107 Troponin I High Sens 10.3 B-Natriuretic Peptide Total Protein 7.6 Albumin 3.6 Globulin 4.0 Albumin/Globulin Ratio 0.9 L Lipase 37 05/17/21 05/17/21 20:27 23:01 WBC RBC Hgb Hct MCV MCH MCHC RDW Plt Count MPV Neut # (Auto) Lymph # (Auto) Lawrence # (Auto) Eos # (Auto) Baso # (Auto) Absolute Nucleated RBC Nucleated RBC % Sodium Potassium Chloride Carbon Dioxide Anion Gap BUN Creatinine Estimated GFR (MDRD) Glucose Calcium Total Bilirubin AST ALT Alkaline Phosphatase Troponin I High Sens 15.4 B-Natriuretic Peptide 99 Total Protein Albumin Globulin Albumin/Globulin Ratio Lipase Imaging and EKG reviewed per electronic medical record Assessment and plan: Active issues/diagnoses Complex chest pain with mixed features including cardiac, GI, possibly musculoskeletal History of chronic angina with probable worsening/unstable angina History of coronary artery disease, high cardiac risk /patient still having blockage which was not stented Uncontrolled hypertension Chronic/subacute pulmonary infiltrates unknown etiology Multiple chronic medical problems as outlined at past medical history Extensive outpatient medication list which is not yet reconciled Obstructive sleep apnea Plan and orders: Admitted under observation, will complete cardiac work-up and subsequently either discharges for outpatient follow-up or gets admitted as inpatient Telemetry monitoring, echocardiogram Stress test inpatient or outpatient as available For probable unstable angina we will order Nitropaste, frequent and increased doses of metoprolol and 1 loading dose of Lovenox; Chewable aspirin; Continue Plavix and statin GI cocktail/proton pump inhibitor for GERD, hiatal hernia Request medication reconciliation Continue eyedrops for glaucoma Home CPAP Request records from [facility] regarding recent echocardiogram or cardiac work-up Covid test pending DVT prophylaxis/SCDs DNR Attestation: I certify that the patient meets criteria for observation based on the admission diagnosis, and the above assessment, findings and plan; he is expected to be hospitalized for less than 48 hours, subsequently to discharge or upgraded to inpatient status based on the clinical course Time: 55 minutes
[2021-05-18] MEDS ORDERED: GI COCKTAIL 120 ML BOTTLE PO SCH (03:00)
[2021-05-18] MEDS ORDERED: NITROGLYCERIN 2% PASTE TOP SCH (03:00)
[2021-05-18 03:16] LABS: B. PARAPERTUSSIS- RESP PCR PAN NOT DETECTED; B. PERTUSSIS- RESP PCR PANEL NOT DETECTED; C. PNEUMONIAE- RESP PCR PANEL NOT DETECTED; CORONAVIRUS 229E-RESP PCR NOT DETECTED; CORONAVIRUS HKU1-RESP PCR NOT DETECTED; CORONAVIRUS NL63-RESP PCR NOT DETECTED; CORONAVIRUS OC43-RESP PCR NOT DETECTED; HUMAN METAPNEUMOVIRUS NOT DETECTED; INFLUENZA A- RESP PCR PANEL NOT DETECTED; INFLUENZA B - RESP PCR PANEL NOT DETECTED; M. PNEUMONIAE- RESP PCR PANEL NOT DETECTED; PARAINFLUENZA VIRUS 1 NOT DETECTED; PARAINFLUENZA VIRUS 2 NOT DETECTED; PARAINFLUENZA VIRUS 3 NOT DETECTED; PARAINFLUENZA VIRUS 4 NOT DETECTED; RHINOVIRUS/ENTEROVIRUS NOT DETECTED; RSV- RESP PCR PANEL NOT DETECTED; SARS-CoV-2 -RESP PCR PANEL NOT DETECTED
[2021-05-18] MEDS: PANTOPRAZOLE 40 MG TABLET PO SCH ×2 (03:48→07:32)
[2021-05-18] MEDS: ATORVASTATIN 40 MG TABLET PO SCH ×3 (03:48→21:56)
[2021-05-18] MEDS: METOPROLOL TARTRATE 25 MG TABLET PO SCH ×4 (03:49→17:28)
[2021-05-18] MEDS ORDERED: ENOXAPARIN 60 MG/0.6 ML SYRINGE SUBQ SCH (04:00)
[2021-05-18 05:38] LABS: CALCIUM 9.6 mg/dL (8.5-10.3)
[2021-05-18 06:03] LABS: CHOL/HDL RATIO 3.9 (<5.0); CHOLESTEROL 155 mg/dL; HDL CHOLESTEROL 40 mg/dL; LDL CHOLESTEROL,CALCULATED 94 mg/dL; LDL/HDL RATIO 2.4 (<3.6); TRIGLYCERIDES 106 mg/dL; VLDL CHOLESTEROL 21 mg/dL
[2021-05-18] MEDS ORDERED: LEVALBUTEROL 1.25 MG/3 ML NEB INH PRN (07:14)
[2021-05-18] MEDS: LOSARTAN 50 MG TABLET PO SCH (09:00)
[2021-05-18] MEDS ORDERED: ISOSORBIDE MONONITRATE ER 30 MG TABLET PO SCH (09:00)
[2021-05-18] MEDS: CLOPIDOGREL 75 MG TABLET PO SCH (09:03)
[2021-05-18] MEDS: SODIUM CHLORIDE FLUSH 0.9% 10 ML SYRINGE IVP SCH ×2 (09:04→17:28)
[2021-05-18] MEDS ORDERED: MAGNESIUM HYDROXIDE 2,400 MG/30 ML UDC PO ONE (09:12)
[2021-05-18 10:06] LABS: ESTIMATED AVERAGE GLUCOSE 137 mg/dL (70-100); HEMOGLOBIN A1c% 6.4 % (4.27-6.07)
--- NOTE | 2021-05-18 13:28 | PHARMACY PROGRESS NOTE ---
- Best Possible Medication History Admit Date and Time: 05/18/21 0219 Processed by: Pharmacy Medication History completed: Yes Patient Interview: Completed Secondary Source(s): Written medication list, Insurance records As the person ultimately responsible for medication therapy, providers are able to order a medication from an existing home medication list in [facility] via the "Reconcile Routine" prior to Confirmation of that medication by whanau support worker. Such practice is discouraged except when the physician, in their clinical judgment, deems that a medical need exists for a medication without regard to previous use.
[2021-05-18] MEDS ORDERED: LATANOPROST 0.005% OPHTH DROPS RIGHTEYE SCH (21:00)
[2021-05-18] MEDS: ISOSORBIDE MONONITRATE ER 30 MG TABLET PO SCH (21:55)
[2021-05-18] MEDS: BETAXOLOL 0.5% RIGHTEYE SCH (21:57)
[2021-05-18] MEDS ORDERED: NITROGLYCERIN SL 0.4 MG TABLET SL PRN (22:58)
[2021-05-19 05:47] LABS: BASOPHILS % (AUTO) 0.5 %; EOSINOPHILS # (AUTO) 0.2 10^3/uL (0.0-0.7); EOSINOPHILS % (AUTO) 2.4 %; HCT - HEMATOCRIT 35.4 % (42.0-52.0); HGB - HEMOGLOBIN 12.2 g/dL (14.0-18.0); LYMPHOCYTES # (AUTO) 2.1 10^3/uL (1.5-3.5); LYMPHOCYTES % (AUTO) 24.5 %; MEAN CORPUSCULAR HEMOGLOBIN 32.7 pg (27.0-31.0); MEAN CORPUSCULAR HGB CONC 34.5 g/dL (32.0-36.0); MEAN CORPUSCULAR VOLUME 94.9 fL (80.0-94.0); MEAN PLATELET VOLUME 9.7 fL (7.4-11.4); MONOCYTES # (AUTO) 1.1 10^3/uL (0.0-1.0); MONOCYTES % (AUTO) 13.3 %; NEUTROPHILS # (AUTO) 4.9 10^3/uL (1.5-6.6); NEUTROPHILS % (AUTO) 58.8 %; PLT - PLATELET COUNT 227 10^3/uL (130-450); RED BLOOD COUNT 3.73 10^6/uL (4.70-6.10); RED CELL DISTRIBUTION WIDTH 12.6 % (12.0-15.0); WHITE BLOOD COUNT 8.4 x10^3/uL (4.8-10.8)
[2021-05-19] MEDS: PANTOPRAZOLE 40 MG TABLET PO SCH (05:49)
[2021-05-19] MEDS: SODIUM CHLORIDE FLUSH 0.9% 10 ML SYRINGE IVP SCH ×2 (05:49→08:21)
[2021-05-19 06:13] LABS: CALCIUM 8.8 mg/dL (8.5-10.3); POTASSIUM 4.1 mmol/L (3.5-5.0)
[2021-05-19] MEDS: CLOPIDOGREL 75 MG TABLET PO SCH (08:20)
[2021-05-19] MEDS: LOSARTAN 50 MG TABLET PO SCH (08:27)
[2021-05-19] MEDS: ISOSORBIDE MONONITRATE ER 30 MG TABLET PO SCH (08:27)
[2021-05-19] MEDS: BETAXOLOL 0.5% RIGHTEYE SCH (08:31)
--- NOTE | 2021-05-19 08:43 | Discharge Plan ---
Discharge Plan Problem Reviewed?: Yes Disposition: Home, Self Care Condition: Stable Diet: Cardiac Activity Restrictions: Activity as Tolerated Shower Restrictions: No (fall precaution) Instruction Topics: ED Chest Pain Atypical Unkn Cause Health Concerns: chest pain Plan of Treatment: You may resume your home medications. Your ECHO, troponin, and EKG study are unremarkable for acute finding. You may followup to have stress test as out-pt, continue to followup with your tobacco stemmer as out-pt. Care Goals: Stabilization and improvement of your medical conditions Assessment: Discussed the care plan with you, answered your questions, you understood Additional Instructions or Follow Up instructions: You may follow-up with your PCP in 1 week, to have stress test as outpatient. Should your symptoms return or worsen, you may present to ER or call 911 for hel p. No Smoking: If you smoke, Please STOP! Call for help. Follow-up with: Nick Nova MD [Primary Care Provider] -
--- NOTE | 2021-05-19 08:49 | DISCHARGE SUMMARY ---
Discharge Summary Admit Date: 05/18/21 Discharge Date: 05/19/21 Discharging Provider: Сергей Jennings Primary Care Provider: Dr. Nick Nova Condition at Discharge: Stable Discharge Disposition: 01 Home, Self Care Discharge Facility Name: home - DIAGNOSES Discharge Diagnoses with Status of Each Condition: 1, chest pain Patient reported his chest pain is subsided. Patient had echo study, troponin study and the EKG study Which all essentially are unremarkable for acute finding. Unfortunately we cannot provide stress test on today for patient, because Dr. Wanda Blandon has Family emergency and left the hospital. I explained those condition to the patient, patient understand. patient agree to follow-up with his PCP to schedule for outpatient stress test 2, hx of CAD Patient has history of CAD, cardiac stenting. we will resume patient home medication aspirin, Plavix, statin, Metoprolol and Losartan. Patient may continue to follow-up with his housekeeping supervisor as outpatient 3, HTN Stable, will resume patient home medications 4, GERD Stable, resume patient home medications. 5,Glaucoma Stable, resume patient home eye drop mediations. - HPI History of Present Illness: refer from Dr Reddy's HPI on 05/18/21 The patient is a pleasant 89-year-old white male with past medical history of coronary artery disease, status post coronary artery bypass graft and stenting who is a good historian and describes still having coronary artery blockage which was not stentable and he was advised to "leave it" or seek evaluation in [place] for possible stenting. Patient describes that he has what he calls "s table angina". He always has chest pain usually once a week. Chest pain is usually exertional and gets better at rest. Patient also describes GI symptoms, he often has reflux-like symptoms and also has history of irritable bowel syndrome. About a month ago he noted increasing frequency of chest pain, longer lasting and stronger. In the past 2 or 3 days the chest pains got really frequent and occurred 2-3 times per day. The pain was 7 out of 10 intensity, mid retrosternal and in the past 24 hours radiated to the left arm. The character of the pain was similar to prior angina. On further questioning the patient describes that his chest pain is not only worse with activity but it is also worse laying down and is made worse by eating certain foods. Patient also mentions that the chest pain gets better or worse on different positions. Further, the patient confirms having history of chronic lung infiltrates which were noted during an ER visit and since then are followed by periodic imaging. Review of the medical record shows patient having interstitial bibasilar infiltrates. Last CT scan of the chest was on May 01, 2021, showed improvement of the infiltrates compared to September 25, 2019. Regarding outpatient cardiac follow-up, the patient sees a housekeeping supervisor and usually goes to [facility] in [place]. He is unsure whether he had recent echocardiogram or stress test but when the studies are described he thinks he has not had any similar done recently. Upon presentation to the ER patient was found significantly hypertensive with systolic blood pressure up to the 200s. His heart rate was close to the normal range, notably he is on beta-brandon. His oxygen saturation was high 90s on room air. ER work-up was grossly unremarkable included nonischemic EKG and serial troponins twice negative. The ER physician coordinated the case with the patient's on-call housekeeping supervisor who recommended patient to be admitted under observation to [facility] undergo echocardiogram and stress test if available. - ALLERGIES Allergies/Adverse Reactions: Allergies Allergy/AdvReac Type Severity Reaction Status Date / Time Sulfa (Sulfonamide Allergy Intermediate Hives Verified 05/17/21 20:17 Antibiotics) lansoprazole [From Prevacid] Allergy Mild Diarrhea Verified 05/17/21 20:17 Abnigfm-Ifu-Gms Reductase Allergy Mild Indigestion/Chest Verified 05/17/21 20:17 Inhibitor pain tetracycline [Tetracycline] Allergy Mild Unknown Verified 05/17/21 20:17 tree nut Allergy Mild Unknown Verified 05/17/21 20:17 diphenhydramine HCl * AdvReac Mild A-fib Verified 05/17/21 20:17 [From Benadryl] egg AdvReac Mild Indigestion Verified 05/17/21 20:17 oats AdvReac Mild Indigestion Verified 05/17/21 20:17 amlodipine AdvReac Rash Verified 05/17/21 20:17 gluten AdvReac Cramps Verified 05/17/21 20:17 ibuprofen [From Advil] AdvReac Rash Verified 05/17/21 20:17 - MEDICATIONS Home Medications: Ambulatory Orders Medication Instructions Recorded Confirmed Latanoprost 0.005% Ophth Drops 1 drops EACHEYE QPM 12/27/12 05/18/21 [Xalatan Ophth Drops] Magnesium 350 mg PO QDDINNER 12/27/12 05/18/21 Cyanocobalamin (Vitamin B-12) 1,000 mcg IM .TWICE MONTHLY 06/16/15 05/18/21 [Cyanocobalamin Injection] Metoprolol Succinate 50 mg PO DAILY 11/09/17 05/18/21 Aspirin [Aspirin EC] 81 mg PO 1800 11/10/17 05/18/21 Betaxolol HCl [Betaxolol HCl 0.5%] 1 drops RIGHTEYE BID 11/10/17 05/18/21 Calcium Carbonate [Tums (Calcium 1,000 mg PO PRN PRN 11/10/17 05/18/21 Carbonate 500mg)] Cholecalciferol (Vitamin D3) 2,000 units PO QDDINNER 11/10/17 05/18/21 [Vitamin D3] Clopidogrel [Plavix] 75 mg PO DAILY 06/06/18 05/18/21 Acetaminophen [Tylenol] 650 mg PO DAILY 08/02/19 05/18/21 Ezetimibe 10 mg PO DAILY 08/02/19 05/18/21 Ascorbyl Palmitate 500 mg PO QDBREAKFAST 10/05/19 05/18/21 Digestive 8/L.acidoph/Pectin 1 each PO BID 10/05/19 05/18/21 [Digestive Enzymes Tablet] Famotidine [Pepcid AC] 10 mg PO BID 10/05/19 05/18/21 Grape Seed Extract [Meganatural-Bp] 250 mg PO QDDINNER 10/05/19 05/18/21 Propylene Glycol/Peg 400 [Systane 1 drops EACHEYE TID PRN 10/05/19 05/18/21 Ultra 0.4-0.3% Eye Drp] Saccharomyces Boulardii [Florastor] 250 mg PO QDBREAKFAST 10/05/19 05/18/21 Vitamin K2 [Menauinone-7] 100 mcg PO QDDINNER 10/05/19 05/18/21 Isosorbide Mononitrate [Isosorbide 60 mg PO QPM 03/27/21 05/18/21 Mononitrate ER] Losartan Potassium 25 mg PO DAILY 03/27/21 05/18/21 Nitroglycerin [Nitrostat] 0.4 mg SL Q5MIN PRN 03/27/21 05/18/21 Ubidecarenone [Co Q-10] 100 mg PO QDBREAKFAST 05/18/21 05/18/21 Vit C/E/Zn/Coppr/Lutein/Zeaxan 1 cap PO QDDINNER 05/18/21 05/18/21 [[facility] Softgel] - PHYSICAL EXAM AT DISCHARGE General Appearance: positive: No acute distress, Alert. negative: Lethargic Eyes Bilateral: positive: Normal inspection, No lid inflammation ENT: positive: ENT inspection nml, No signs of dehydration. negative: Purulent nasal drainage Neck: positive: Thyroid nml, Trachea midline. negative: Thyromegaly, Tracheal deviation Respiratory: positive: Chest non-tender, No respiratory distress. negative: Wheezes, Rales Cardiovascular: positive: Regular rate & rhythm. negative: Tachycardia, Bradyc ardia, Systolic murmur Peripheral Pulses: positive: 2+ Abdomen: positive: Non-tender, Nml bowel sounds, No distention. negative: Tenderness Back: positive: Nml inspection Skin: positive: Color nml, Warm, Dry. negative: Cyanosis, Diaphoresis Extremities: positive: Non-tender, Full ROM, Nml appearance. negative: Calf tenderness Neurologic/Psychiatric: positive: Oriented x3, Motor nml, Sensation nml, Mood/affect nml. negative: Weakness, Sensory loss, Facial droop, Slurred/abnml speech, Depressed mood/affect - LABS Result Diagrams: 05/19/21 04:53 05/19/21 04:53 - FOLLOW UP Follow Up: You may resume your home medications. Your ECHO, troponin, and EKG study are unremarkable for acute finding. You may followup to have stress test as out-pt, continue to followup with your housekeeping supervisor as out-pt. You may follow-up with your PCP in 1 week, to have stress test as outpatient. Should your symptoms return or worsen, you may present to ER or call 911 for help. - TIME SPENT Time Spent in Discharge (Minutes): 30
[2021-05-19] MEDS ORDERED: METOPROLOL SUCCINATE 50 MG TABLET PO SCH (09:00)
[2021-05-19] MEDS ORDERED: ENOXAPARIN 40 MG/0.4 ML SYRINGE SUBQ SCH (09:00)
[2021-05-19] MEDS ORDERED: ASPIRIN CHEW 81 MG TABLET PO SCH (09:00)
[2021-05-19] MEDS ORDERED: polyethylene glycoL 3350 17 GM PACKET PO SCH (09:00)
[2021-05-19] MEDS ORDERED: EZETIMIBE 10 MG PO SCH (09:00)
[2021-05-19 11:25] VITALS: BP 142/73
== END 2021-05-19 12:00 | disposition home or self-care (01) | DRG 313 ==
LOC: EDUNIT# → SUPCPDRO 20:11 → ED 20:11 → MS2 05-18 02:19 → OBSVTOIN 05-18 10:47
PROVIDERS: ADMIT Internal Medicine; ATTEND Nurse Practitioner Gerontology
DX: R07.9 Chest pain, unspecified (principal); I25.10 Atherosclerotic heart disease of native coronary artery without angina pectoris; I10 Essential (primary) hypertension; K21.9 Gastro-esophageal reflux disease without esophagitis; H40.9 Unspecified glaucoma; Z95.1 Presence of aortocoronary bypass graft; Z95.5 Presence of coronary angioplasty implant and graft; Z66 Do not resuscitate; Z79.82 Long term (current) use of aspirin; Z79.899 Other long term (current) drug therapy; K58.9 Irritable bowel syndrome, unspecified; R91.8 Other nonspecific abnormal finding of lung field; G47.33 Obstructive sleep apnea (adult) (pediatric); K44.9 Diaphragmatic hernia without obstruction or gangrene; Z20.822 Contact with and (suspected) exposure to COVID-19; Z85.46 Personal history of malignant neoplasm of prostate
CPT/HCPCS: 36415; 71045; 80048; 80053; 80061; 83036; 83690; 83880; 84484; 85025; 87631; 93005; 93306; 96372; 99284; 99285; A9270; G0378; J1650; 0202U; 83721; 87635

== ENCOUNTER 2021-05-26 19:20 | Outpatient (CLI) | payer MEDICARE, OTHER | END 2021-05-26 19:21 | disposition critical access hospital (66) | LOC: EMS 19:20 | DX: R07.9 Chest pain, unspecified (principal) | CPT/HCPCS: A0425; A0427 ==

== ENCOUNTER 2021-05-26 19:32 | Emergency (ER) | payer MEDICARE, OTHER ==
--- NOTE | 2021-05-26 19:52 | ED Physician Documentation ---
History of Present Illness - Stated complaint Stated Complaint: CHEST PX - Chief complaint Chief Complaint: Cardiac - Additonal information Additional information: 89 year-old male presents the emergency department for evaluation of cute onset midsternal chest pain that radiated to his left arm. This began this evening after he lifted a heavy box. José Miguel however was admitted to the hospital last week for chest pain. He has a longstanding history of coronary artery disease, status post CABG and stenting. He reports that his mud jack nozzle worker has told him that though he has coronary artery blockage it is not distensible and he was advised to leave it or be seen by doctors in [place]. With admission last week he did undergo echocardiogram that was unremarkable but due to family emergency and provider he was unable to obtain the stress test. Patient reports that when the pain began this evening he took 5 nitroglycerin over the course of about an hour that failed to resolve the chest pain thus he called 911. EMS gave him nitroglycerin and he is now free of chest pain. Review of Systems Constitutional: reports: Reviewed and negative Ears: reports: Reviewed and negative Nose: reports: Reviewed and negative Throat: reports: Reviewed and negative Cardiac: reports: Chest pain / pressure Respiratory: reports: Reviewed and negative GI: reports: Reviewed and negative : reports: Reviewed and negative Skin: reports: Reviewed and negative PD PAST MEDICAL HISTORY - Past Medical History Past Medical History: Yes Cardiovascular: Hypertension, High cholesterol, Coronary artery disease, Atrial fibrillation, Arrhythmia Respiratory: Sleep apnea, CPAP use Neuro: None Endocrine/Autoimmune: None GI: GERD, Hiatal hernia, Diverticulitis : Kidney stones HEENT: None Psych: None Musculoskeletal: Osteoarthritis, Fatigue, Other Derm: Other - Past Surgical History Past Surgical History: Yes General: Colonoscopy, EGD Ortho: Other Cardiovascular: CABG, Coronary stent HEENT: Cataracts, Tonsil/Adenoidectomy - Present Medications Home Medications: Ambulatory Orders Medication Instructions Recorded Confirmed Latanoprost 0.005% Ophth Drops 1 drops EACHEYE QPM 12/27/12 05/18/21 [Xalatan Ophth Drops] Magnesium 350 mg PO QDDINNER 12/27/12 05/18/21 Cyanocobalamin (Vitamin B-12) 1,000 mcg IM .TWICE MONTHLY 06/16/15 05/18/21 [Cyanocobalamin Injection] Metoprolol Succinate 50 mg PO DAILY 11/09/17 05/18/21 Aspirin [Aspirin EC] 81 mg PO 1800 11/10/17 05/18/21 Betaxolol HCl [Betaxolol HCl 0.5%] 1 drops RIGHTEYE BID 11/10/17 05/18/21 Calcium Carbonate [Tums (Calcium 1,000 mg PO PRN PRN 11/10/17 05/18/21 Carbonate 500mg)] Cholecalciferol (Vitamin D3) 2,000 units PO QDDINNER 11/10/17 05/18/21 [Vitamin D3] Clopidogrel [Plavix] 75 mg PO DAILY 06/06/18 05/18/21 Acetaminophen [Tylenol] 650 mg PO DAILY 08/02/19 05/18/21 Ezetimibe 10 mg PO DAILY 08/02/19 05/18/21 Ascorbyl Palmitate 500 mg PO QDBREAKFAST 10/05/19 05/18/21 Digestive 8/L.acidoph/Pectin 1 each PO BID 10/05/19 05/18/21 [Digestive Enzymes Tablet] Famotidine [Pepcid AC] 10 mg PO BID 10/05/19 05/18/21 Grape Seed Extract [Meganatural-Bp] 250 mg PO QDDINNER 10/05/19 05/18/21 Propylene Glycol/Peg 400 [Systane 1 drops EACHEYE TID PRN 10/05/19 05/18/21 Ultra 0.4-0.3% Eye Drp] Saccharomyces Boulardii [Florastor] 250 mg PO QDBREAKFAST 10/05/19 05/18/21 Vitamin K2 [Menauinone-7] 100 mcg PO QDDINNER 10/05/19 05/18/21 Isosorbide Mononitrate [Isosorbide 60 mg PO QPM 03/27/21 05/18/21 Mononitrate ER] Losartan Potassium 25 mg PO DAILY 03/27/21 05/18/21 Nitroglycerin [Nitrostat] 0.4 mg SL Q5MIN PRN 03/27/21 05/18/21 Ubidecarenone [Co Q-10] 100 mg PO QDBREAKFAST 05/18/21 05/18/21 Vit C/E/Zn/Coppr/Lutein/Zeaxan 1 cap PO QDDINNER 05/18/21 05/18/21 [[facility] Softgel] Metoprolol Succinate [Toprol Xl] 100 mg PO DAILY #60 tablet 05/26/21 - Allergies Allergies/Adverse Reactions: Allergies Allergy/AdvReac Type Severity Reaction Status Date / Time Sulfa (Sulfonamide Allergy Intermediate Hives Verified 05/26/21 19:39 Antibiotics) lansoprazole [From Prevacid] Allergy Mild Diarrhea Verified 05/26/21 19:39 Jhbpkqk-Ank-Rlk Reductase Allergy Mild Indigestion/Chest Verified 05/26/21 19:39 Inhibitor pain tetracycline [Tetracycline] Allergy Mild Unknown Verified 05/26/21 19:39 tree nut Allergy Mild Unknown Verified 05/26/21 19:39 diphenhydramine HCl * AdvReac Mild A-fib Verified 05/26/21 19:39 [From Benadryl] egg AdvReac Mild Indigestion Verified 05/26/21 19:39 oats AdvReac Mild Indigestion Verified 05/26/21 19:39 amlodipine AdvReac Rash Verified 05/26/21 19:39 atorvastatin AdvReac Unknown Verified 05/26/21 19:39 gluten AdvReac Cramps Verified 05/26/21 19:39 ibuprofen [From Advil] AdvReac Rash Verified 05/26/21 19:39 rosuvastatin AdvReac Emesis Verified 05/26/21 19:39 - Social History Does the pt smoke?: No Smoking Status: Never smoker Does the pt drink ETOH?: Yes Does the pt have substance abuse?: No - Immunizations Immunizations are current?: Yes - POLST Patient has POLST: No PD ED PE NORMAL - General General: Alert and oriented X 3, No acute distress - HEENT HEENT: PERRL - Neck Neck: Supple, no meningeal sign - Cardiac Cardiac: RRR, No murmur - Respiratory Respiratory: Clear bilaterally - Abdomen Abdomen: Normal bowel sounds, Soft, Non tender, Non distended - Back Back: No CVA TTP, No spinal TTP Results - Vitals Vitals: Vital Signs - 24 hr 05/26/21 05/26/21 19:39 20:57 Temperature 36.4 C L Heart Rate 76 88 Respiratory 18 16 Rate Blood Pressure 189/89 H 140/75 H O2 Saturation 100 98 Oxygen O2 Source Room air - EKG (time done) 1934 Rate: Rate (enter#) (71) Rhythm: NSR Mayo: Normal Intervals: Normal MN. No: Prolonged QT QRS: Normal Ischemia: Normal ST segments Compare to prior EKG: Unchanged from prior EKG Computer interpretation: Agree with computer - Labs Labs: Laboratory Tests 05/26/21 05/26/21 05/26/21 19:51 19:51 19:51 WBC 7.3 RBC 4.36 L Hgb 13.3 L Hct 40.4 L MCV 92.7 MCH 30.5 MCHC 32.9 RDW 12.6 Plt Count 264 MPV 8.9 Neut # (Auto) 4.3 Lymph # (Auto) 2.0 Elk # (Auto) 0.8 Eos # (Auto) 0.2 Baso # (Auto) 0.1 Absolute Nucleated RBC 0.00 Nucleated RBC % 0.0 Sodium 133 L Potassium 4.0 Chloride 93 L Carbon Dioxide 29 Anion Gap 11.0 BUN 12 Creatinine 1.0 Estimated GFR (MDRD) 70 L Glucose 108 H Calcium 9.2 Total Bilirubin 0.8 AST 20 ALT 18 Alkaline Phosphatase 113 Troponin I High Sens 7.8 B-Natriuretic Peptide Total Protein 7.8 Albumin 3.7 Globulin 4.1 Albumin/Globulin Ratio 0.9 L Lipase 44 05/26/21 19:51 WBC RBC Hgb Hct MCV MCH MCHC RDW Plt Count MPV Neut # (Auto) Lymph # (Auto) Elk # (Auto) Eos # (Auto) Baso # (Auto) Absolute Nucleated RBC Nucleated RBC % Sodium Potassium Chloride Carbon Dioxide Anion Gap BUN Creatinine Estimated GFR (MDRD) Glucose Calcium Total Bilirubin AST ALT Alkaline Phosphatase Troponin I High Sens B-Natriuretic Peptide 106 H Total Protein Albumin Globulin Albumin/Globulin Ratio Lipase - Rads (name of study) CXR Radiology: Final report received (no acute cardiopulmonary process) PD MEDICAL DECISION MAKING - ED course Complexity details: reviewed results, d/w patient, d/w income tax consultant ([facility]) ED course: 89-year-old male who has a longstanding history of coronary artery disease status post CABG as well as stenting presents to the emergency department for evaluation of chest pain that occurred this evening when he lifted a heavy box. The chest pain was substernal and radiated to the left arm. It was consistent with his previous history of angina. This is this gentleman's second ED visit in 9 days for chest pain. He was admitted to the hospital on 18 May for chest pain had an unremarkable EKG, negative troponins as well as a negative echocardiogram. A stress test could not be completed. The patient had attempted to follow-up with cardiology as an outpatient but had been unsuccessful. Today in the emergency department he did present fairly hypertensive with a blood pressure of approximating 190/90. He is fully compliant with his metoprolol, aspirin Plavix Imdur and lisinopril. Today's screening EKG is essentially unchanged from 1 week ago and is nonischemic. High-sensitivity troponin is negative. Other screening labs are unremarkable. However given high risk features of angina as well as known coronary artery disease with plaque formation I did discuss this case with Dr. Spann on-call mud jack nozzle worker with [facility]. She was able to review his chart. She indicates to me that the patient had a catheterization in 2016 that did show fairly significant coronary artery disease. However he did have an exercise stress test in October 2020 that did not show ischemic changes. He also followed up with his mud jack nozzle worker in March 2021 and was not reporting increasing angina. Given that this gentleman has high risk features and now two presentations to the ER in the last week for chest pain Dr. Spann felt that follow-up this week at the cardiology office was warranted therefore they will see him on Monday to discuss stress testing then versus admission to the hospital. She did request that we increase his metoprolol succinate to 100 mg daily for better blood pressure control. These plan and findings were discussed with the patient and he is in agreement. Emergent worrisome return precautions were discussed for worsening chest pain, syncope or dyspnea. Departure - Departure Disposition: 01 Home, Self Care Clinical Impression: Chest pain due to CAD Condition: Stable Record reviewed to determine appropriate education?: Yes Instructions: ED Heart Disease Risk Factors Prescriptions: Metoprolol Succinate [Toprol Xl] 100 mg PO DAILY #60 tablet Comments: Syed you were seen today for chest pain. Your EKG, chest x-ray and labs are all essentially normal. I discussed this visit with Dr. Spann a mud jack nozzle worker who works with Dr. Xiomara [employer]. Dr. Spann has requested that you be seen in follow-up at the [place] office on Monday. The mud jack nozzle worker office will be giving you a call tomorrow. We would like to improve your blood pressure control. Please increase your metoprolol to 100 mg once daily. You can take 2 of your 50 mg tablets. If between now and Monday you are having worsening symptoms, chest pain that causes you to feel short of breath or any fainting episodes please return immediately to the ER for a second evaluation
[2021-05-26 20:00] LABS: BASOPHILS # (AUTO) 0.1 10^3/uL (0.0-0.1); BASOPHILS % (AUTO) 0.8 %; EOSINOPHILS # (AUTO) 0.2 10^3/uL (0.0-0.7); EOSINOPHILS % (AUTO) 2.2 %; HCT - HEMATOCRIT 40.4 % (42.0-52.0); HGB - HEMOGLOBIN 13.3 g/dL (14.0-18.0); LYMPHOCYTES % (AUTO) 26.8 %; MEAN CORPUSCULAR HEMOGLOBIN 30.5 pg (27.0-31.0); MEAN CORPUSCULAR HGB CONC 32.9 g/dL (32.0-36.0); MEAN CORPUSCULAR VOLUME 92.7 fL (80.0-94.0); MEAN PLATELET VOLUME 8.9 fL (7.4-11.4); MONOCYTES # (AUTO) 0.8 10^3/uL (0.0-1.0); MONOCYTES % (AUTO) 11.4 %; NEUTROPHILS # (AUTO) 4.3 10^3/uL (1.5-6.6); NEUTROPHILS % (AUTO) 58.3 %; PLT - PLATELET COUNT 264 10^3/uL (130-450); RED BLOOD COUNT 4.36 10^6/uL (4.70-6.10); RED CELL DISTRIBUTION WIDTH 12.6 % (12.0-15.0); WHITE BLOOD COUNT 7.3 x10^3/uL (4.8-10.8)
[2021-05-26 20:17] LABS: ALBUMIN 3.7 g/dL (3.2-5.5); ALBUMIN/GLOBULIN RATIO 0.9 (1.0-2.2); BILIRUBIN,TOTAL 0.8 mg/dL (0.2-1.0); CALCIUM 9.2 mg/dL (8.5-10.3); TOTAL PROTEIN 7.8 g/dL (6.7-8.2)
[2021-05-26] MEDS ORDERED: METOPROLOL SUCCINATE 50 MG TABLET PO STA (20:57)
--- NOTE | 2021-05-26 21:33 | XRAY Report ---
PROCEDURE: Chest 1 View X-Ray INDICATIONS: Chest Pain TECHNIQUE: One view of the chest was acquired. COMPARISON: 05/17/2021 FINDINGS: Surgical changes and devices: Median sternotomy changes.. Lungs and pleura: No pleural effusions or pneumothorax. Scattered multifocal alveolar opacities, mor e confluent in the right upper lobe. Less thickening of the interstitial markings. Mediastinum: Mediastinal contours appear normal. Heart size is normal. Bones and chest wall: No suspicious bony lesions. Overlying soft tissues appear unremarkable. IMPRESSION: 1. Persistent bilateral patchy alveolar opacities raising the possibility of pneumonia or edema. 2. Prior CABG. Reviewed by: Nicolasa Garces MD on 05/26/2021 9:32 PM PDT Approved by: Nicolasa Garces MD on 05/26/2021 9:32 PM PDT Station ID: [id number]
[2021-05-26 22:09] VITALS: BP 155/84
== END 2021-05-26 22:09 | disposition home or self-care (01) ==
LOC: EDUNIT# → ED 19:32
DX: I25.119 Atherosclerotic heart disease of native coronary artery with unspecified angina pectoris (principal); Z95.5 Presence of coronary angioplasty implant and graft; Z95.1 Presence of aortocoronary bypass graft; I10 Essential (primary) hypertension; Z79.02 Long term (current) use of antithrombotics/antiplatelets; Z79.82 Long term (current) use of aspirin
CPT/HCPCS: 36415; 71045; 80053; 83690; 83880; 84484; 85025; 93005; 99284; A9270

== ENCOUNTER 2021-06-18 11:16 | Emergency (ER) | payer MEDICARE, OTHER ==
--- NOTE | 2021-06-18 13:31 | ED Physician Documentation ---
History of Present Illness - Stated complaint Stated Complaint: SOA/COUGH/FEVER - Chief complaint Chief Complaint: Resp - History obtained from History obtained from: Patient, Family - History of Present Illness Timing: How many days ago (2) - Additonal information Additional information: 89 y/o male with a history of angina s/p CABG and stenting has a history of recurrent pneumonia and esophageal symptoms with chronic reflux. The patient feels his reflux symptoms have been worse recently. He is having a problem with cough and sputum production and he has had recurrent atypical pneumonia. Last year it took 3 ED visits and a hospital stay to resolve his pneumonia. Review of Systems Constitutional: reports: Fever, Chills Eyes: denies: Decreased vision Ears: denies: Ear pain Nose: denies: Rhinorrhea / runny nose, Congestion Throat: denies: Dental pain / toothache Cardiac: denies: Chest pain / pressure, Palpitations, Pedal edema, Calf pain Respiratory: reports: Dyspnea, Cough GI: denies: Abdominal Pain, Nausea, Vomiting : denies: Dysuria, Frequency PD PAST MEDICAL HISTORY - Past Medical History Cardiovascular: Hypertension, High cholesterol, Coronary artery disease, Atrial fibrillation, Arrhythmia Respiratory: Sleep apnea, CPAP use Neuro: None Endocrine/Autoimmune: None GI: GERD, Hiatal hernia, Diverticulitis : Kidney stones HEENT: None Psych: None Musculoskeletal: Osteoarthritis, Fatigue, Other Derm: Other - Past Surgical History Past Surgical History: Yes General: Colonoscopy, EGD Ortho: Other Cardiovascular: CABG, Coronary stent HEENT: Cataracts, Tonsil/Adenoidectomy - Present Medications Home Medications: Ambulatory Orders Medication Instructions Recorded Confirmed Latanoprost 0.005% Ophth Drops 1 drops EACHEYE QPM 12/27/12 05/18/21 [Xalatan Ophth Drops] Magnesium 350 mg PO QDDINNER 12/27/12 05/18/21 Cyanocobalamin (Vitamin B-12) 1,000 mcg IM .TWICE MONTHLY 06/16/15 05/18/21 [Cyanocobalamin Injection] Metoprolol Succinate 50 mg PO DAILY 11/09/17 05/18/21 Aspirin [Aspirin EC] 81 mg PO 1800 11/10/17 05/18/21 Betaxolol HCl [Betaxolol HCl 0.5%] 1 drops RIGHTEYE BID 11/10/17 05/18/21 Calcium Carbonate [Tums (Calcium 1,000 mg PO PRN PRN 11/10/17 05/18/21 Carbonate 500mg)] Cholecalciferol (Vitamin D3) 2,000 units PO QDDINNER 11/10/17 05/18/21 [Vitamin D3] Clopidogrel [Plavix] 75 mg PO DAILY 06/06/18 05/18/21 Acetaminophen [Tylenol] 650 mg PO DAILY 08/02/19 05/18/21 Ezetimibe 10 mg PO DAILY 08/02/19 05/18/21 Ascorbyl Palmitate 500 mg PO QDBREAKFAST 10/05/19 05/18/21 Digestive 8/L.acidoph/Pectin 1 each PO BID 10/05/19 05/18/21 [Digestive Enzymes Tablet] Famotidine [Pepcid AC] 10 mg PO BID 10/05/19 05/18/21 Grape Seed Extract [Meganatural-Bp] 250 mg PO QDDINNER 10/05/19 05/18/21 Propylene Glycol/Peg 400 [Systane 1 drops EACHEYE TID PRN 10/05/19 05/18/21 Ultra 0.4-0.3% Eye Drp] Saccharomyces Boulardii [Florastor] 250 mg PO QDBREAKFAST 10/05/19 05/18/21 Vitamin K2 [Menauinone-7] 100 mcg PO QDDINNER 10/05/19 05/18/21 Isosorbide Mononitrate [Isosorbide 60 mg PO QPM 03/27/21 05/18/21 Mononitrate ER] Losartan Potassium 25 mg PO DAILY 03/27/21 05/18/21 Nitroglycerin [Nitrostat] 0.4 mg SL Q5MIN PRN 03/27/21 05/18/21 Ubidecarenone [Co Q-10] 100 mg PO QDBREAKFAST 05/18/21 05/18/21 Vit C/E/Zn/Coppr/Lutein/Zeaxan 1 cap PO QDDINNER 05/18/21 05/18/21 [[facility] Softgel] Metoprolol Succinate [Toprol Xl] 100 mg PO DAILY #60 tablet 05/26/21 Doxycycline Hyclate 100 mg PO BID #20 tab 06/18/21 - Allergies Allergies/Adverse Reactions: Allergies Allergy/AdvReac Type Severity Reaction Status Date / Time Sulfa (Sulfonamide Allergy Intermediate Hives Verified 05/26/21 19:39 Antibiotics) lansoprazole [From Prevacid] Allergy Mild Diarrhea Verified 05/26/21 19:39 Vwpnfrh-ERP-RkR Reductase Allergy Mild Indigestion/Chest Verified 05/26/21 19:39 Inhibitor pain [Vfyfene-Dqt-Sms Reductase Inhibitor] tetracycline [Tetracycline] Allergy Mild Unknown Verified 05/26/21 19:39 tree nut Allergy Mild Unknown Verified 05/26/21 19:39 diphenhydramine HCl * AdvReac Mild A-fib Verified 05/26/21 19:39 [From Benadryl] egg AdvReac Mild Indigestion Verified 05/26/21 19:39 oats AdvReac Mild Indigestion Verified 05/26/21 19:39 amlodipine AdvReac Rash Verified 05/26/21 19:39 atorvastatin AdvReac Unknown Verified 05/26/21 19:39 gluten AdvReac Cramps Verified 05/26/21 19:39 ibuprofen [From Advil] AdvReac Rash Verified 05/26/21 19:39 rosuvastatin AdvReac Emesis Verified 05/26/21 19:39 - Social History Does the pt smoke?: No Smoking Status: Never smoker Does the pt drink ETOH?: Yes Does the pt have substance abuse?: No - Immunizations Immunizations are current?: Yes - POLST Patient has POLST: No PD ED PE NORMAL - Vitals Vital signs reviewed: Yes (hypertensive ) - General General: Alert and oriented X 3, No acute distress, Well developed/nourished - HEENT HEENT: Atraumatic, PERRL, EOMI - Neck Neck: Supple, no meningeal sign, No bony TTP - Cardiac Cardiac: RRR, No murmur - Respiratory Respiratory: No respiratory distress, Other (rhonchi in left base) - Abdomen Abdomen: Soft, Non tender - Back Back: No CVA TTP, No spinal TTP - Derm Derm: Normal color, Warm and dry, No rash - Extremities Extremities: No deformity, No edema - Neuro Neuro: Alert and oriented X 3, cooker sulfate 2-12 intact, No motor deficit, No sensory deficit, Normal speech Eye Opening: Spontaneous Motor: Obeys Commands Verbal: Oriented GCS Score: 15 - Psych Psych: Normal mood, Normal affect Results - Vitals Vitals: Vital Signs - 24 hr 06/18/21 06/18/21 12:09 14:15 Temperature 36.6 C Heart Rate 94 70 Respiratory 18 17 Rate Blood Pressure 133/67 H 127/57 L O2 Saturation 96 99 Oxygen O2 Source Room air - Labs Labs: Laboratory Tests 06/18/21 06/18/21 06/18/21 13:42 13:42 13:42 WBC 10.6 RBC 4.12 L Hgb 12.9 L Hct 38.7 L MCV 93.9 MCH 31.3 H MCHC 33.3 RDW 13.2 Plt Count 242 MPV 9.3 Neut # (Auto) Not Reportable Lymph # (Auto) Not Reportable Chambers # (Auto) Not Reportable Eos # (Auto) Not Reportable Baso # (Auto) Not Reportable Absolute Nucleated RBC Not Reportable Total Counted 100 Band Neuts % (Manual) 0 Reactive Lymphs % (Man) 7 Abnorm Lymph % (Manual) 0 Nucleated RBC % Not Reportable Neutrophils # (Manual) 6.5 Lymphocytes # (Manual) 2.3 Monocytes # (Manual) 1.8 H Eosinophils # (Manual) 0.0 Basophils # (Manual) 0.0 Differential Comment MANUAL DIFFERENTIAL Platelet Estimate NORMAL (130-450,000) Platelet Morphology NORMAL APPEARANCE RBC Morph Micro Appear NORMAL APPEARANCE Sodium 133 L Potassium 4.0 Chloride 96 L Carbon Dioxide 26 Anion Gap 11.0 BUN 12 Creatinine 1.0 Estimated GFR (MDRD) 70 L Glucose 116 H Lactic Acid 1.1 Calcium 9.5 Total Bilirubin 0.8 AST 21 ALT 16 Alkaline Phosphatase 110 Total Protein 8.2 Albumin 3.8 Globulin 4.4 H Albumin/Globulin Ratio 0.9 L Lipase 32 - Rads (name of study) chest Radiology: Prelim report reviewed (Impression: 1. Bilateral reticulonodular densities, likely reflecting chronic interstitial change. An acute superimposed infectious process cannot be excluded.), EMP read indepedently, See rad report PD MEDICAL DECISION MAKING - ED course Complexity details: reviewed results, re-evaluated patient, considered differential, d/w patient, d/w family ED course: 89-year-old male with a history of coronary artery disease and chronic stable angina has had a problem with pneumonia recurring and today he has what appears to be interstitial infiltrate on his chest x-ray. Does have appearance of atypical pneumonia. He is immunized against Covid and does not believe he has been exposed. Today we will start him on some doxycycline and swab his nose for Covid as a send out. He will follow up with Dr. Nova next week. Pharmacist called back patient is allergic to tetracycline uncertain whether he gets a rash or not the pharmacist recommended not giving doxycycline. He has had rash and vomiting with tetracycline and Septra unsure which is which. So we have switched him back to azithromycin. Departure - Departure Disposition: 01 Home, Self Care Clinical Impression: Atypical pneumonia Condition: Stable Instructions: ED Pneumonia Adult Follow-Up: Nick Nova MD [Primary Care Provider] - Prescriptions: Doxycycline Hyclate 100 mg PO BID #20 tab Discharge Date/Time: 06/18/21 14:59
--- NOTE | 2021-06-18 13:43 | XRAY Report ---
PROCEDURE: Chest 1 View X-Ray INDICATIONS: Chest pain TECHNIQUE: One view of the chest was acquired. COMPARISON: May 26, 2021. Reference is made to the CT chest dated May 01, 2021. FINDINGS: SUPPORT DEVICES: None. LUNG/PLEURA: Redemonstrated reticulonodular densities, likely reflecting chronic interstitial change. No lobar consolidation, pleural effusion or pneumothorax. MEDIASTINUM: The cardiomediastinal silhouette is within normal limits. BONES/SOFT TISSUES: No acute abnormality. IMPRESSION: 1.Bilateral reticulonodular densities, likely reflecting chronic interstitial change. An acute superi mposed infectious process cannot be excluded. Reviewed by: Gee Leavitt MD on 06/18/2021 1:42 PM PDT Approved by: Gee Leavitt MD on 06/18/2021 1:42 PM PDT Station ID: [id number]
[2021-06-18 13:55] LABS: BASOPHILS % (AUTO) 0.5 %; EOSINOPHILS % (AUTO) 0.5 %; HCT - HEMATOCRIT 38.7 % (42.0-52.0); HGB - HEMOGLOBIN 12.9 g/dL (14.0-18.0); LYMPHOCYTES % (AUTO) 19.8 %; MEAN CORPUSCULAR HEMOGLOBIN 31.3 pg (27.0-31.0); MEAN CORPUSCULAR HGB CONC 33.3 g/dL (32.0-36.0); MEAN CORPUSCULAR VOLUME 93.9 fL (80.0-94.0); MEAN PLATELET VOLUME 9.3 fL (7.4-11.4); MONOCYTES % (AUTO) 15.7 %; NEUTROPHILS % (AUTO) 63.1 %; PLT - PLATELET COUNT 242 10^3/uL (130-450); RED BLOOD COUNT 4.12 10^6/uL (4.70-6.10); RED CELL DISTRIBUTION WIDTH 13.2 % (12.0-15.0); WHITE BLOOD COUNT 10.6 x10^3/uL (4.8-10.8)
[2021-06-18 14:05] LABS: ALBUMIN 3.8 g/dL (3.2-5.5); ALBUMIN/GLOBULIN RATIO 0.9 (1.0-2.2); BILIRUBIN,TOTAL 0.8 mg/dL (0.2-1.0); CALCIUM 9.5 mg/dL (8.5-10.3); TOTAL PROTEIN 8.2 g/dL (6.7-8.2)
[2021-06-18 14:59] VITALS: BP 127/57
[2021-06-18 15:07] LABS: ABNORMAL LYMPHS % (MANUAL) 0 %; BAND NEUTROPHILS % (MANUAL) 0 %
[2021-06-18 15:27] LABS: DIFFERENTIAL COMMENT MANUAL DIFFERENTIAL; LYMPHOCYTES # (MANUAL) 2.3 10^3/uL (1.5-3.5); LYMPHOCYTES % (MANUAL) 15 %; MONOCYTES # (MANUAL) 1.8 10^3/uL (0.0-1.0); NEUTROPHILS # (MANUAL) 6.5 10^3/uL (1.5-6.6); PLATELET ESTIMATE, MANUAL NORMAL (130-450,000) (NORMAL); PLATELET MORPHOLOGY NORMAL APPEARANCE (NORMAL); RBC MORPHOLOGY (MULTIPLE) NORMAL APPEARANCE (NORMAL); REACTIVE LYMPHS % (MANUAL) 7 %
== END 2021-06-18 14:59 | disposition home or self-care (01) ==
LOC: ED 11:16
DX: J18.9 Pneumonia, unspecified organism (principal); Z88.1 Allergy status to other antibiotic agents; K21.9 Gastro-esophageal reflux disease without esophagitis; I10 Essential (primary) hypertension; I48.91 Unspecified atrial fibrillation; G47.30 Sleep apnea, unspecified; K44.9 Diaphragmatic hernia without obstruction or gangrene; R53.83 Other fatigue; Z20.822 Contact with and (suspected) exposure to COVID-19; Z95.5 Presence of coronary angioplasty implant and graft; Z87.01 Personal history of pneumonia (recurrent); Z79.82 Long term (current) use of aspirin; Z79.899 Other long term (current) drug therapy; Z79.01 Long term (current) use of anticoagulants
CPT/HCPCS: 36415; 71045; 80053; 83605; 83690; 85025; 87040; 99283; 99284; U0004

== ENCOUNTER 2021-06-28 16:12 | Emergency (ER) | payer MEDICARE, OTHER ==
--- NOTE | 2021-06-28 16:52 | XRAY Report ---
PROCEDURE: Chest 2 View X-Ray INDICATIONS: cough TECHNIQUE: 2 view(s) of the chest. COMPARISON: Chest x-ray 06/18/2021 FINDINGS: Surgical changes and devices: Sternal wires. Lungs and pleura: Bilateral pulmonary opacities appearing slightly improved. Mediastinum: Mediastinal contours are normal. Heart size is normal. Bones and chest wall: No suspicious bony abnormalities. Soft tissues appear unremarkable. IMPRESSION: Patchy bilateral pulmonary opacities slightly improved suggestive of pneumonia. Reviewed by: Juana Cherry MD on 06/28/2021 4:51 PM PDT Approved by: Juana Cherry MD on 06/28/2021 4:51 PM PDT Station ID: [id number]
[2021-06-28] MEDS ORDERED: cefTRIAXone 1 GM VIAL IM STA (17:52)
[2021-06-28] MEDS ORDERED: LIDOCAINE 1% 2 ML VIAL MC ONE (17:52)
--- NOTE | 2021-06-28 17:55 | ED Physician Documentation ---
History of Present Illness - Stated complaint Stated Complaint: PAIN W/ BREATHING - Chief complaint Chief Complaint: Resp - History obtained from History obtained from: Patient - History of Present Illness Timing: Today Pain level max: 3 Pain level now: 3 - Additonal information Additional information: 89-year-old male recently diagnosed with pneumonia, placed on azithromycin, states his cough has improved but he is still having occasional chest pain when taking a deep breath. Concerned that the pneumonia has not fully resolved. Worse with taking a deep breath, nothing makes it better. No fevers. No chills. Review of Systems Constitutional: denies: Fever, Chills Cardiac: denies: Chest pain / pressure Respiratory: reports: Cough (Dry) GI: denies: Vomiting, Diarrhea Skin: denies: Rash Musculoskeletal: denies: Neck pain, Back pain Neurologic: denies: Headache PD PAST MEDICAL HISTORY - Past Medical History Cardiovascular: Hypertension, High cholesterol, Coronary artery disease, Atrial fibrillation, Arrhythmia Respiratory: Sleep apnea, CPAP use Neuro: None Endocrine/Autoimmune: None GI: GERD, Hiatal hernia, Diverticulitis : Kidney stones HEENT: None Psych: None Musculoskeletal: Osteoarthritis, Fatigue, Other Derm: Other - Past Surgical History Past Surgical History: Yes General: Colonoscopy, EGD Ortho: Other Cardiovascular: CABG, Coronary stent HEENT: Cataracts, Tonsil/Adenoidectomy - Present Medications Home Medications: Ambulatory Orders Medication Instructions Recorded Confirmed Latanoprost 0.005% Ophth Drops 1 drops EACHEYE QPM 12/27/12 05/18/21 [Xalatan Ophth Drops] Magnesium 350 mg PO QDDINNER 12/27/12 05/18/21 Cyanocobalamin (Vitamin B-12) 1,000 mcg IM .TWICE MONTHLY 06/16/15 05/18/21 [Cyanocobalamin Injection] Metoprolol Succinate 50 mg PO DAILY 11/09/17 05/18/21 Aspirin [Aspirin EC] 81 mg PO 1800 11/10/17 05/18/21 Betaxolol HCl [Betaxolol HCl 0.5%] 1 drops RIGHTEYE BID 11/10/17 05/18/21 Calcium Carbonate [Tums (Calcium 1,000 mg PO PRN PRN 11/10/17 05/18/21 Carbonate 500mg)] Cholecalciferol (Vitamin D3) 2,000 units PO QDDINNER 11/10/17 05/18/21 [Vitamin D3] Clopidogrel [Plavix] 75 mg PO DAILY 06/06/18 05/18/21 Acetaminophen [Tylenol] 650 mg PO DAILY 08/02/19 05/18/21 Ezetimibe 10 mg PO DAILY 08/02/19 05/18/21 Ascorbyl Palmitate 500 mg PO QDBREAKFAST 10/05/19 05/18/21 Digestive 8/L.acidoph/Pectin 1 each PO BID 10/05/19 05/18/21 [Digestive Enzymes Tablet] Famotidine [Pepcid AC] 10 mg PO BID 10/05/19 05/18/21 Grape Seed Extract [Meganatural-Bp] 250 mg PO QDDINNER 10/05/19 05/18/21 Propylene Glycol/Peg 400 [Systane 1 drops EACHEYE TID PRN 10/05/19 05/18/21 Ultra 0.4-0.3% Eye Drp] Saccharomyces Boulardii [Florastor] 250 mg PO QDBREAKFAST 10/05/19 05/18/21 Vitamin K2 [Menauinone-7] 100 mcg PO QDDINNER 10/05/19 05/18/21 Isosorbide Mononitrate [Isosorbide 60 mg PO QPM 03/27/21 05/18/21 Mononitrate ER] Losartan Potassium 25 mg PO DAILY 03/27/21 05/18/21 Nitroglycerin [Nitrostat] 0.4 mg SL Q5MIN PRN 03/27/21 05/18/21 Ubidecarenone [Co Q-10] 100 mg PO QDBREAKFAST 05/18/21 05/18/21 Vit C/E/Zn/Coppr/Lutein/Zeaxan 1 cap PO QDDINNER 05/18/21 05/18/21 [[facility] Softgel] Metoprolol Succinate [Toprol Xl] 100 mg PO DAILY #60 tablet 05/26/21 Doxycycline Hyclate 100 mg PO BID #20 tab 06/18/21 Azithromycin [Zithromax] 0 mg PO DAILY #6 tablet 06/28/21 Cefpodoxime Proxetil [Vantin] 200 mg PO Q12H #20 tablet 06/28/21 - Allergies Allergies/Adverse Reactions: Allergies Allergy/AdvReac Type Severity Reaction Status Date / Time Sulfa (Sulfonamide Allergy Intermediate Hives Verified 06/28/21 16:18 Antibiotics) lansoprazole [From Prevacid] Allergy Mild Diarrhea Verified 06/28/21 16:18 [id number]-AwU Reductase Allergy Mild Indigestion/Chest Verified 06/28/21 16:18 Inhibitor pain [Hinebeb-Aft-Zpt Reductase Inhibitor] tetracycline [Tetracycline] Allergy Mild Unknown Verified 06/28/21 16:18 tree nut Allergy Mild Unknown Verified 06/28/21 16:18 diphenhydramine HCl * AdvReac Mild A-fib Verified 06/28/21 16:18 [From Benadryl] egg AdvReac Mild Indigestion Verified 06/28/21 16:18 oats AdvReac Mild Indigestion Verified 06/28/21 16:18 amlodipine AdvReac Rash Verified 06/28/21 16:18 atorvastatin AdvReac Unknown Verified 06/28/21 16:18 gluten AdvReac Cramps Verified 06/28/21 16:18 ibuprofen [From Advil] AdvReac Rash Verified 06/28/21 16:18 rosuvastatin AdvReac Emesis Verified 06/28/21 16:18 - Social History Does the pt smoke?: No Smoking Status: Never smoker Does the pt drink ETOH?: Yes Does the pt have substance abuse?: No - Immunizations Immunizations are current?: Yes - POLST Patient has POLST: No PD ED PE NORMAL - Vitals Vital signs reviewed: Yes - General General: Alert and oriented X 3, No acute distress - HEENT HEENT: Moist mucous membranes - Neck Neck: Supple, no meningeal sign - Cardiac Cardiac: RRR, Strong equal pulses - Respiratory Respiratory: No respiratory distress, Clear bilaterally - Abdomen Abdomen: Soft, Non tender, Non distended - Derm Derm: Warm and dry - Extremities Extremities: No edema - Neuro Neuro: Alert and oriented X 3 Results - Vitals Vitals: Vital Signs - 24 hr 06/28/21 06/28/21 16:18 18:10 Temperature 36.5 C Heart Rate 82 72 Respiratory 18 18 Rate Blood Pressure 170/78 H 180/75 H O2 Saturation 96 97 Oxygen O2 Source Room air - Rads (name of study) cxr Radiology: Final report received, EMP read contemporaneously, See rad report (MPRESSION: Patchy bilateral pulmonary opacities slightly improved suggestive of pneumonia.) PD MEDICAL DECISION MAKING - ED course Complexity details: reviewed old records, reviewed results, re-evaluated patient, considered differential, d/w patient, d/w family ED course: Patient has had a negative recent Covid test. Chest x-ray shows persistent bilateral pneumonia. We will place on a cephalosporin and azithromycin together. We will have him follow-up with his doctor for further care. No hypoxia or respiratory distress. Patient counseled regarding signs and symptoms for which I believe and urgent re-evaluation would be necessary. Patient with good understanding of and agreement to plan and is comfortable going home at this time This document was made in part using voice recognition software. While efforts are made to proofread this document, sound alike and grammatical errors may occur. Departure - Departure Disposition: 01 Home, Self Care Clinical Impression: Pneumonia Qualifiers: Pneumonia type: due to unspecified organism Laterality: bilateral Lung location: lower lobe of lung Qualified Code(s): J18.9 - Pneumonia, unspecified organism Condition: Good Instructions: ED Pneumonia Adult Follow-Up: Nick Nova MD [Primary Care Provider] - Within 1 week Prescriptions: Cefpodoxime Proxetil [Vantin] 200 mg PO Q12H #20 tablet Azithromycin [Zithromax] 0 mg PO DAILY #6 tablet Comments: Your prescriptions were sent to the [facility] pharmacy. Please start these tomorrow. You should have a repeat x-ray in 1 week with your doctor. Please return if you worsen. Discharge Date/Time: 06/28/21 18:52
[2021-06-28 18:11] VITALS: BP 180/75
== END 2021-06-28 18:52 | disposition home or self-care (01) ==
LOC: ED 16:12
DX: J18.9 Pneumonia, unspecified organism (principal); I10 Essential (primary) hypertension; I48.91 Unspecified atrial fibrillation; Z20.822 Contact with and (suspected) exposure to COVID-19
CPT/HCPCS: 96372; 99283; 99284

== ENCOUNTER 2021-07-05 14:08 | Outpatient (CLI) | payer MEDICARE, OTHER ==
--- NOTE | 2021-07-05 15:57 | XRAY Report ---
PROCEDURE: Chest 2 View X-Ray INDICATIONS: PNEUMONIA TECHNIQUE: 2 view(s) of the chest. COMPARISON: None. FINDINGS: Surgical changes and devices: Sternal wires. Lungs and pleura: Improved although incompletely resolved appearance of bilateral pulmonary opacities . Mediastinum: Mediastinal contours are normal. Heart size is normal. Bones and chest wall: No suspicious bony abnormalities. Soft tissues appear unremarkable. IMPRESSION: Improved, although incompletely resolved appearance of previously identified pneumonia. Continued int erval imaging follow-up is recommended to document complete resolution. Reviewed by: Juana Cherry MD on 07/05/2021 3:56 PM PST Approved by: Juana Cherry MD on 07/05/2021 3:56 PM [facility] Station ID: [id number]
== END 2021-07-05 14:09 | disposition home or self-care (01) ==
LOC: DI 14:08
PROVIDERS: ATTEND Physician Assistant
DX: J18.9 Pneumonia, unspecified organism (principal)

== ENCOUNTER 2021-07-15 14:15 | Outpatient (CLI) | payer MEDICARE, OTHER ==
--- NOTE | 2021-07-15 15:25 | XRAY Report ---
PROCEDURE: Chest 2 View X-Ray INDICATIONS: PNEUMONIA-MONITORING TECHNIQUE: 2 view(s) of the chest. COMPARISON: 07/05/2021.. FINDINGS: Surgical changes and devices: Median sternotomy wires. Lungs and pleura: No pleural effusions or pneumothorax. Patchy opacities in the periphery the upper lobes bilaterally have increased slightly in size compared to 07/05/2021 concerning for recurrent or p rogression of residual pneumonia. Mediastinum: Mediastinal contours are normal. Heart size is normal. Bones and chest wall: No suspicious bony abnormalities. Soft tissues appear unremarkable. IMPRESSION: Patchy bilateral airspace opacities in the periphery of the lungs bilaterally slightly increased in s ize compared to 07/05/2021. Findings suspicious for recurrent pneumonia or progression of residual pne umonia. Reviewed by: Stefanie Oleary MD, PhD on 07/15/2021 3:23 PM PST Approved by: Stefanie Oleary MD, PhD on 07/15/2021 3:23 PM PST Station ID: [id number]
== END 2021-07-15 14:16 | disposition home or self-care (01) ==
LOC: DI 14:15
PROVIDERS: ATTEND Physician Assistant
DX: J18.9 Pneumonia, unspecified organism (principal)

== ENCOUNTER 2021-08-02 15:42 | Outpatient (CLI) | payer MEDICARE, OTHER ==
--- NOTE | 2021-08-02 16:19 | XRAY Report ---
PROCEDURE: Chest 2 View X-Ray INDICATIONS: PNEUMONIA TECHNIQUE: 2 view(s) of the chest. COMPARISON: FINDINGS: Surgical changes and devices: Sternal wires Lungs and pleura: Previous areas of patchy pulmonary opacities have improved although incompletely re solved. Mediastinum: Mediastinal contours are normal. Heart size is normal. Bones and chest wall: No suspicious bony abnormalities. Soft tissues appear unremarkable. IMPRESSION: Improved although incompletely resolved areas of patchy pulmonary opacities. This could represent residual airspace disease or areas of scarring. As clinically indicated, interval CT chest follow-up may be obtained. Reviewed by: Juana Cherry MD on 08/02/2021 4:18 PM PST Approved by: Juana Cherry MD on 08/02/2021 4:18 PM PST Station ID: [id number]
== END 2021-08-02 15:43 | disposition home or self-care (01) ==
LOC: DI 15:42
PROVIDERS: ATTEND Physician Assistant
DX: J18.9 Pneumonia, unspecified organism (principal)